=== PATIENT | male | born 1945 | race Caucasian/White ===

== ENCOUNTER → 2018-01-19 | Outpatient (CLI) | payer MEDICARE, OTHER ==
[~2018-01-19] MED LIST: ALBUTEROL NEB; ALBUTEROL0.63 MG/3 INH; AMBIEN10 MG PO; ASPIRIN325 MG PO; BROVANA15 MCG/2 M NEB; BUDESONIDE0.5 MG/2 M NEB; CEFDINIR300 MG PO; CIPRO500 MG PO; FLONASE16 GM; IPRATROPIUM BRO15 ML NEB; METFORMIN HCL500 M1 PO; NORCO 7.5-3251 EACH PO; ONGLYZA5 MG PO; PANTOPRAZOLE SO40 MG PO; PLAVIX75 MG PO; PROAIR HFA INH8.5 GM PO; ZOCOR40 MG PO
--- NOTE | 2018-01-19 09:12 | Diagnostic Imaging Report ---
PROCEDURE: X-RAY CHEST, TWO VIEWS COMPARISON: 05/21/2010. INDICATIONS: PULMONARY EMPHYSEMA FINDINGS: The lungs remain hyperinflated with flattening of the hemidiaphragms and increased AP diameter of the chest. Unchanged bibasilar linear opacities compatible with fibrotic change. No new consolidation or pleural effusion. Stable cardiomediastinal contour with tortuosity and atherosclerotic calcification of the thoracic aorta. Heart size is normal. No overt pulmonary edema. No acute osseous abnormality. CONCLUSION: Stable emphysematous changes and bibasilar scar. Dictated by: Jordan Abrams M.D. on 01/19/2018 at 9:14 Electronically approved by: Jordan Abrams M.D. on 01/19/2018 at 9:14
--- NOTE | 2018-01-20 10:53 | Diagnostic Imaging Report ---
EXAM: DXA BONE DENSITY INDICATIONS: Osteoporosis screening COMPARISON: None. FINDINGS: Proximal left femur bone mineral density (BMD) (g/cm2):0.986 Femur T-score (standard deviation relative to young adult mean BMD): -0.3 Femur Z-score (standard deviation relative to age-matched control group):0.4 Lumbar bone mineral density (BMD) (g/cm2):0.993 Lumbar T-score (standard deviation relative to young adult mean BMD): -0.9 Lumbar Z-score (standard deviation relative to age-matched control group):0.1 CONCLUSION: 1. Bone mineral density in the left femur is classified as normal. Fracture risk is not increased. 2. Bone mineral density in the spine is classified as normal. Fracture risk is not increased. World Health Organization Classification: *The Z-score is provided for informational purposes. The T-score is preferable for clinical decisions. When comparing exams, a change of >4% is considered statistically significant. SUGGESTED RECOMMENDATIONS: Normal \T\ Osteopenia:Consideration should be given to use of calcium supplementation, daily multiple vitamins and adequate exercise, as preventive measures against osteoporosis, if clinically indicated. Osteoporosis \T\ Severe Osteoporosis:In addition to the above, consideration should be given to medical therapy against osteoporosis, if clinically indicated. Ion Adam D.O. Dictated by: Ion Adam D.O. on 01/20/2018 at 10:55 Electronically approved by: Ion Adam D.O. on 01/20/2018 at 10:55
== END ==
LOC: DX 08:17
PROVIDERS: ATTEND Internal Medicine Critical Care Medicine
DX: Z13.820 Encounter for screening for osteoporosis (principal); J43.9 Emphysema, unspecified
CPT/HCPCS: 71046; 77080

== ENCOUNTER 2018-11-11 17:26 | Inpatient (IN) | payer MEDICARE, OTHER ==
[~2018-11-11] VITALS: Ht 162.6 cm; Wt 100.7 kg
--- OUTSIDE RECORDS SUMMARY | 2018-11-11 17:30 | XMS REPORT ---
Author Author [facility] Address Unknown Phone Unavailable Care Team Providers Care Greeter Name Role Phone LEANDRA MARCH Unavailable Unavailable Problems This patient has no known problems. Allergies, Adverse Reactions, Alerts This patient has no known allergies or adverse reactions. Medications This patient has no known medications. Results Test Description Test Time Test Comments Text Results Atomic Results Result Comments CHEST 2 VIEWS [place] [address] Patient Name: MINDY PHILLIP MR #: [id number] : 1945 Age/Sex: 72/M Req #: [id number] Adm Physician: Ordered by: LEANDRA MARCH MD Report #: [id number] Location: DX Room/Bed: Procedure: [id number] DX/CHEST 2 VIEWS Exam Date: 01/19/18 Exam Time: 0830 REPORT STATUS: Signed PROCEDURE: X-RAY CHEST, TWO VIEWS COMPARISON: 05/21/2010. INDICATIONS: PULMONARY EMPHYSEMA FINDINGS: The lungs remain hyperinflated with flattening of the hemidiaphragms and increased AP diameter of the chest. Unchanged bibasilar linear opacities compatible with fibrotic change. No new consolidation or pleural effusion. Stable cardiomediastinal contour with tortuosity and atherosclerotic calcification of the thoracic aorta. Heart size is normal. No overt pulmonary edema. No acute osseous abnormality. CONCLUSION: Stable emphysematous changes and bibasilar scar. Dictated by: Fransisca Horta M.D. on 01/19/2018 at 9:14 Electronically approved by: Fransisca Horta M.D. on 01/19/2018 at 9:14 Dictated By: FRANSISCA HORTA MD 3 Transcribed By: JOE on 01/19/18913 COPY TO: LEANDRA MARCH MD BONE DXA DUAL ENERGY [place] [address] Patient Name: MINDY PHILLIP MR #: [id number] : 1945 Age/Sex: 72/M Req #: [id number] [facility] Physician: Ordered by: LEANDRA MARCH MD Report #: [id number] Location: DX Room/Bed: Procedure: [id number] DX/BONE DXA DUAL ENERGY Exam Date: Exam Time: REPORT STATUS: Signed EXAM: DXA BONE DENSITY INDICATIONS: Osteoporosis screening COMPARISON: None. FINDINGS: Proximal left femur bone mineral density (BMD) (g/cm2): 0.986 Femur T-score (standard deviation relative to young adult mean BMD): -0.3 Femur Z-score (standard deviation relative to age-matched control group): 0.4 Lumbar bone mineral density (BMD) (g/cm2): 0.993 Lumbar T-score (standard deviation relative to young adult mean BMD): -0.9 Lumbar Z- score (standard deviation relative to age-matched control group): 0.1 CONCLUSION: 1. Bone mineral density in the left femur is classified as normal. Fracture risk is not increased. 2. Bone mineral density in the spine is classified as normal. Fracture risk is not increased. World Health Organization Classification: *The Z-score is provided for informational purposes. The T-score is preferable for clinical decisions. When comparing exams, a change of >4% is considered statistically significant. SUGGESTED RECOMMENDATIONS: Normal T Osteopenia: Consideration should be given to use of calcium supplementation, daily multiple vitamins and adequate exercise, as preventive measures against osteoporosis, if clinically indicated. Osteoporosis T Severe Osteoporosis: In addition to the above, consideration should be given to medical therapy against osteoporosis, if clinically indicated. Clarke Adam D.O. Dictated by: Clarke Adam D.O. on 01/20/2018 at 10:55 Electronically approved by: Clarke Adam D.O. on 01/20/2018 at 10:55 Dictated By: CLARKE ADAM DO 1055 Transcribed By: JOE on 01/20/18 1055 COPY TO: LEANDRA MARCH MD
[2018-11-11 18:23] LABS: BASOPHILS # (AUTO) 0.1 (0.0-0.1); EOSINOPHILS # (AUTO) 0.3 (0.0-0.4); EOSINOPHILS % 3.2 % (0.0-6.0); HEMATOCRIT 41.4 % (38.2-49.6); HEMOGLOBIN 13.7 g/dL (14.0-18.0); LYMPHOCYTES # (AUTO) 2.7 (1.0-3.2); LYMPHOCYTES % 25.7 % (18.0-39.1); MEAN CORPUSCULAR HEMOGLOBIN 30.6 pg (28-32); MEAN CORPUSCULAR HGB CONC 33.1 g/dL (31-35); MEAN CORPUSCULAR VOLUME 92.6 fL (81-99); MONOCYTES # (AUTO) 0.9 (0.2-0.8); MONOCYTES % 8.6 % (4.4-11.3); NEUTROPHILS # (AUTO) 6.4 (2.1-6.9); PLATELET COUNT 275 x10e3/uL (140-360); RED BLOOD COUNT 4.47 x10e6/uL (4.3-5.7); RED CELL DISTRIBUTION WIDTH 13.1 % (11.7-14.4)
[2018-11-11 18:36] LABS: INR 0.87; PROTHROMBIN TIME 12.7 seconds (11.9-14.5)
[2018-11-11 18:37] LABS: PARTIAL THROMBOPLASTIN TIME 28.6 seconds (23.8-35.5)
[2018-11-11 18:44] LABS: ALANINE AMINOTRANSFERASE 29 IU/L (0-55); ALBUMIN 3.7 g/dL (3.5-5.0); ALBUMIN/GLOBULIN RATIO 1.3 (0.8-2.0); ALKALINE PHOSPHATASE 63 IU/L (40-150); ANION GAP 14.3 mmol/L (8-16); BLOOD UREA NITROGEN 13 mg/dL (7-26); BUN/CREATININE RATIO 17 (6-25); CALCIUM 9.2 mg/dL (8.4-10.2); CARBON DIOXIDE 27 mmol/L (22-29); CHLORIDE 103 mmol/L (98-107); CREATINE KINASE 129 IU/L (30-200); CREATININE, SERUM 0.76 mg/dL (0.72-1.25); EST GLOMERULAR FILTRATION RATE > 60 ML/MIN (60-); GLUCOSE 141 mg/dL (74-118); MAGNESIUM 3.3 MG/DL (1.3-2.1); POTASSIUM 4.3 mmol/L (3.5-5.1); SODIUM 140 mmol/L (136-145)
[2018-11-11 18:56] LABS: B-TYPE NATRIURETIC PEPTIDE2 13.4 pg/mL (0-100)
--- NOTE | 2018-11-11 18:57 | Diagnostic Imaging Report ---
EXAMINATION: CHEST SINGLE (PORTABLE) INDICATION: ^SOB ^[id number] ^1840 COMPARISON: None FINDINGS: AP view TUBES and LINES: None. LUNGS: Lungs are well inflated. Bilateral interstitial edema. No lobar consolidations. PLEURA: No pleural effusion or pneumothorax. HEART AND MEDIASTINUM: The cardiomediastinal silhouette is unremarkable.. BONES AND SOFT TISSUES: No acute osseous lesion. Soft tissues are unremarkable. UPPER ABDOMEN: No free air under the diaphragm. IMPRESSION: Bilateral interstitial edema. Differential diagnosis includes atypical infection. Signed by: Dr. Maite Santoyo M.D. on 11/11/2018 6:54 PM
[2018-11-11 19:00] LABS: CLARITY,URINE SL CLOUDY (CLEAR); COLOR,URINE YELLOW (YELLOW); KETONES,URINE TRACE (NEGATIVE); LEUKOCYTE ESTERASE ,URINE NEGATIVE (NEGATIVE); NITRITE,URINE NEGATIVE (NEGATIVE); PROTEIN,URINE DIPSTICK 1+ (NEGATIVE)
[2018-11-11 19:01] LABS: BILIRUBIN,URINE NEGATIVE (NEGATIVE); URINE UROBILINOGEN 0.2 mg/dL (0.2 - 1)
[2018-11-11 19:05] LABS: BACTERIA,URINE FEW /HPF; EPITHELIAL CELLS,URINE FEW /LPF; MUCUS,URINE FEW (RARE); WBC,URINE (MAN) 0-5 /HPF (0-5)
[2018-11-11] MEDS ORDERED: ALBUTEROL/IPRATROPIUM 3 ML NEB ONE (19:28)
[2018-11-11] MEDS ORDERED: ALBUTEROL/IPRATROPIUM 3 ML NEB NEB ONE (19:30)
[2018-11-11] MEDS ORDERED: ASPIRIN 81 MG CHEW TAB PO ONE (20:00)
[2018-11-11] MEDS ORDERED: METHYLPREDNISOLONE SOD SUCC 125 MG/2ML VIAL IV ONE (20:00)
[2018-11-11] MEDS ORDERED: DEXTROSE 50% SYRINGE 50 ML IV PRN (20:15)
[2018-11-11] MEDS ORDERED: HYDROCODONE/APAP 7.5MG-325MG 1 EA TAB PO PRN (20:45)
[2018-11-11] MEDS ORDERED: ZOLPIDEM TARTRATE 10 MG TAB PO PRN (20:45)
[2018-11-11] MEDS ORDERED: ALBUTEROL SULFATE HFA 8GM INHALATION AEROSOL INH PRN (20:45)
[2018-11-11] MEDS ORDERED: FUROSEMIDE INJ 10 MG/ML 4 ML VIAL IV ONE (20:45)
[2018-11-11] MEDS: BUDESONIDE 0.5MG/2 ML NEB NEB SCH (21:00)
[2018-11-11] MEDS: IPRATROPIUM BROMIDE 0.06% 42 MCG NASPR NS SCH (21:00)
[2018-11-11 21:13] LABS: ABG HCO3 28 mmol/L (23-28); ABG PCO2 47 mmHg (41-51); ABG PH 7.37 (7.31-7.41); ABG PO2 98 mmHg (80-105)
--- NOTE | 2018-11-11 22:14 | History and Physical ---
CHIEF COMPLAINT: Dyspnea and leg swelling. HISTORY OF PRESENT ILLNESS: The patient is a 73-year-old man with a history of coronary artery disease, requiring a stent 9 years ago. He also has a history of severe COPD. He uses oxygen at home as well as nebulizers. He recently required steroids as an outpatient along with antibiotics and nebulizer treatments. He now comes to the emergency department complaining of worsening dyspnea on exertion. He notes fatigue and dizziness. He also notes some chest pain with exertion. PAST SURGICAL HISTORY: Status post cardiac stent 9 years ago. PAST MEDICAL HISTORY 1. Severe COPD. 2. Bcf-mqyewcx-rhoaffyfk diabetes. 3. Coronary artery disease. SOCIAL HISTORY: The patient quit smoking. He is not an active drinker. ALLERGIES: THE PATIENT IS ALLERGIC TO PENICILLIN. FAMILY HISTORY: Family history is noncontributory. REVIEW OF SYSTEMS: There is no fever or headache. There is no sore throat. There is no neck pain. He did have some chest pain with exertion. He notes worsening dyspnea and some cough. He does not have phlegm production or fevers. There is no nausea or vomiting. There is no abdominal pain. He does have 1-2+ leg edema. PHYSICAL EXAMINATION VITAL SIGNS: The patient is afebrile. The blood pressure is 134/69, saturation is 100% on 3 liters, and the pulse is 83. Respiratory rate is 14. HEENT: No facial swelling or erythema. The nasal mucosa is normal. The oropharynx is normal. LYMPHATIC: No submandibular, cervical, or supraclavicular adenopathy. CARDIOVASCULAR: Regular rate and rhythm with normal S1 and S2. There are no murmurs or rubs. RESPIRATORY: Auscultation of the lungs reveals prolonged expiratory phase bilaterally. There is no wheezing. ABDOMEN: Soft and nontender. There is no rebound or guarding. EXTREMITIES: 2+ leg edema bilaterally. NEUROLOGIC: No focal abnormalities. LABORATORY DATA: BUN to creatinine ratio is 13 to 0.76. The other electrolytes are within normal limits. The troponin I is normal. The magnesium is 3.3. White blood cell count is 10.6 and hemoglobin is 13.7. The platelet count is 275. RADIOGRAPHIC DATA: Chest x-ray shows hyperinflation with some bilateral interstitial edema. IMPRESSION 1. Chronic obstructive pulmonary disease with acute exacerbation. 2. Atypical chest pain. 3. Right heart failure. 4. Diabetes. 5. Moderate obesity. PLAN 1. Patient will be placed in observation with telemetry monitoring. 2. Serial cardiac enzymes and echocardiogram. 3. ABG. 4. Continue bronchodilators. 5. Solu-Medrol. 6. Diuretics. 7. Venous Duplex to rule out DVT. Job#: [id number] BRIJESH
[2018-11-11 22:20] VITALS: BP 142/65
--- NOTE | 2018-11-11 22:20 | NUR ---
PATIENT IS A NEW ADMIT THAT ARRIVED VIA STRETCHER. PATIENT IS ALERT AND ORIENTED. PATIENT HAS BEEN HELPED INTO THE BED. BED IS IN LOWEST POSITION AND CALL HAMMONDS IS WITHIN REACH. WILL CONTINUE TO MONITOR PATIENT.
[2018-11-11 22:25] VITALS: BP 142/65
[2018-11-11] MEDS: INSULIN REGULAR, HUMAN 100 UNIT/1 ML 3ML VIAL SQ SCH (23:57)
[2018-11-12] VITALS (8 sets, daily range): BP systolic 129–157; BP diastolic 56–69
[2018-11-12 02:51] LABS: CREATINE KINASE MB 2.1 ng/mL (0-5.0)
[2018-11-12 05:06] LABS: BASOPHILS % 0.3 % (0.0-1.0); EOSINOPHILS % 0.1 % (0.0-6.0); HEMATOCRIT 41.4 % (38.2-49.6); HEMOGLOBIN 13.8 g/dL (14.0-18.0); LYMPHOCYTES # (AUTO) 0.7 (1.0-3.2); LYMPHOCYTES % 9.8 % (18.0-39.1); MEAN CORPUSCULAR HEMOGLOBIN 30.5 pg (28-32); MEAN CORPUSCULAR HGB CONC 33.3 g/dL (31-35); MEAN CORPUSCULAR VOLUME 91.4 fL (81-99); MONOCYTES # (AUTO) 0.1 (0.2-0.8); MONOCYTES % 1.1 % (4.4-11.3); NEUTROPHILS # (AUTO) 6.5 (2.1-6.9); NEUTROPHILS % 88.4 % (38.7-80.0); PLATELET COUNT 246 x10e3/uL (140-360); RED BLOOD COUNT 4.53 x10e6/uL (4.3-5.7); RED CELL DISTRIBUTION WIDTH 12.5 % (11.7-14.4)
[2018-11-12 05:30] LABS: ALANINE AMINOTRANSFERASE 33 IU/L (0-55); ALBUMIN 3.6 g/dL (3.5-5.0); ALBUMIN/GLOBULIN RATIO 1.2 (0.8-2.0); ALKALINE PHOSPHATASE 64 IU/L (40-150); ANION GAP 14.1 mmol/L (8-16); BLOOD UREA NITROGEN 12 mg/dL (7-26); BUN/CREATININE RATIO 15 (6-25); CALCIUM 9.1 mg/dL (8.4-10.2); CARBON DIOXIDE 27 mmol/L (22-29); CHLORIDE 100 mmol/L (98-107); EST GLOMERULAR FILTRATION RATE > 60 ML/MIN (60-); GLUCOSE 287 mg/dL (74-118); POTASSIUM 4.1 mmol/L (3.5-5.1); SODIUM 137 mmol/L (136-145)
--- NOTE | 2018-11-12 06:20 | Diagnostic Imaging Report ---
EXAMINATION: CHEST SINGLE (PORTABLE) INDICATION: CHF COMPARISON: 11/11/2018 FINDINGS: AP view TUBES and LINES: None. LUNGS: Lungs are well inflated. There is no evidence of pneumonia or pulmonary edema. PLEURA: No pleural effusion or pneumothorax. HEART AND MEDIASTINUM: The cardiomediastinal silhouette is unremarkable. BONES AND SOFT TISSUES: No acute osseous lesion. Soft tissues are unremarkable. UPPER ABDOMEN: No free air under the diaphragm. IMPRESSION: No acute thoracic abnormality. Signed by: DR. Jabier Prado MD on 11/12/2018 6:16 AM
[2018-11-12] MEDS: ALBUTEROL/IPRATROPIUM 3 ML NEB NEB PRN ×3 (07:00→19:58)
[2018-11-12] MEDS: BUDESONIDE 0.5MG/2 ML NEB NEB SCH ×2 (07:00→19:56)
--- NOTE | 2018-11-12 07:02 | NUR ---
REPORT GIVEN TO DAY NURSE. PATIENT IS RESTING COMFORTABLY IN BED. BED IS IN LOWEST POSITION AND CALL HAMMONDS IS WITHIN REACH.
[2018-11-12] MEDS ORDERED: LEVEMIR100 UNIT/1 SQ ×2 (08:24)
[2018-11-12] MEDS ORDERED: SINGULAIR10 MG PO (08:24)
[2018-11-12] MEDS: ASPIRIN 325 MG TAB PO SCH (08:32)
[2018-11-12] MEDS: CLOPIDOGREL BISULFATE 75 MG TAB PO SCH (08:32)
[2018-11-12] MEDS: METHYLPREDNISOLONE SOD SUCC 40 MG/ML VIAL 1ML IV SCH ×2 (08:32→20:55)
[2018-11-12] MEDS: PANTOPRAZOLE SOD 40 MG TABEC PO SCH (08:32)
[2018-11-12] MEDS: SIMVASTATIN 40 MG TAB PO SCH (08:32)
[2018-11-12] MEDS: INSULIN REGULAR, HUMAN 100 UNIT/1 ML 3ML VIAL SQ SCH ×4 (08:33→20:55)
[2018-11-12] MEDS ORDERED: METHYLPREDNISOLONE SOD SUCC 40 MG/ML VIAL 1ML IV SCH (09:00)
[2018-11-12] MEDS: FLUTICASONE PROPIONATE NASAL SPRAY NS SCH ×2 (10:55→17:00)
[2018-11-12] MEDS: IPRATROPIUM BROMIDE 0.06% 42 MCG NASPR NS SCH ×2 (10:55→19:00)
--- NOTE | 2018-11-12 12:25 | Consultation ---
DATE OF CONSULTATION: CARDIOLOGY CONSULTATION CHIEF COMPLAINT: The patient is a 73-year-old with shortness of breath. HISTORY OF PRESENT ILLNESS: The patient is a 73-year-old male with a history of severe chronic obstructive pulmonary disease, on home oxygen and came to the emergency room with worsening dyspnea and exertion. The patient also reported some sharp chest pain. different from the pain he had with his previous coronary stent. The patient also reported some sweating and diaphoresis. PAST MEDICAL HISTORY: Significant for; 1. Severe chronic obstructive pulmonary disease. 2. Diabetes mellitus. 3. Previous coronary stent. 4. Hypertension. SOCIAL HISTORY: The patient was a smoker for long time, but quit. The patient does not drink. ALLERGIES: THE PATIENT IS ALLERGIC TO PENICILLIN. FAMILY HISTORY: There is no known family history of coronary artery disease. PHYSICAL EXAMINATION GENERAL: The patient is a well-developed, well-nourished male, in no obvious distress. VITAL SIGNS: Included a temperature of 98.8, blood pressure 144/74, pulse 62. HEENT: The patient's cranium was normocephalic and atraumatic. Extraocular muscles were intact. Sclerae were anicteric. Pupils were equal, round, and reactive to light. There is no pallor or cyanosis of the oral mucosa. There is no erythema or edema of the throat. NECK: Supple. No jugular venous distention. No carotid bruits. CHEST: Clear to auscultation and percussion, but the bases had markedly decreased breath sounds bilaterally. CARDIAC: The patient had normal S1 and S2 with a short 2/6 systolic murmur. ABDOMEN: The patient has good bowel sounds. No tenderness. No masses. EXTREMITIES: The patient had 1 to 2+ edema bilaterally. NEUROLOGIC: The patient was alert and oriented x3. Cranial nerves II through XII were intact. Motor strength was +5/+5 in all limbs. The patient's EKG demonstrated normal sinus rhythm with some nonspecific ST and T wave changes. IMPRESSION: The patient is a 73-year-old with worsening dyspnea, which I believe is most likely related to an exacerbation of his chronic obstructive pulmonary disease. RECOMMENDATIONS: As follows; 1. The patient will need to be monitored on telemetry. 2. Cardiac enzymes have been ordered to exclude ischemia. 3. An echocardiogram has been ordered to evaluate the left ventricular size and function. Job#: [id number] AMINA
[2018-11-12 12:42] LABS: CREATINE KINASE 135 IU/L (30-200)
[2018-11-12] MEDS: DOXYCYCLINE 100MG/NS 100ML 100 ML IV SCH ×2 (12:42→23:56)
--- NOTE | 2018-11-12 14:22 | NUR ---
Report given to Shannon ZENG of patient's status. Patient transferred via wheelchair to Room 102. No s/s of acute distress noted. Patient's notified of transfer
--- NOTE | 2018-11-12 14:29 | NUR ---
CASE MANAGEMENT INITIAL ASSESSMENT Pre Owned Sales Consultant to bedside to discuss plan of care with patient/family. CM/SW role and care transitions discussed. Anticipated discharge plan discussed along with duration of care. CM/SW discussed patients right to make decisions in care. CM/SW work hours given. Patient lives: WITH , [facility] Admit/Transfer: ED Hospital/ER visits since last admit: NONE POA/Emergency contact: [facility] [phone] Current/Previous Home Health: NONE, BUT WOULD LIKE HOME HEALTH OPTIONS PCP/Follow-up Care: Current/Previous DME: HOME OXYGEN WITH [facility] Medications (referring to index hospitalization or the first time you were in the hospital) a. Were changes made in your medications when you were in the hospital on [date of index hospitalization]? Yes No Not sure Explain: Note: If no or not sure, please skip to question d b. Did you understand the changes? Yes No Explain: c. Were you able to obtain your new medications right away? Yes No n/a SNF only Explain: d. Were you able to take your medications like the doctor wanted you to? Yes No Explain: e. Did the hospital give you an accurate, easy to understand list of medications when you left? Yes No n/a SNF only Explain: Scale of 1-10 how comfortable does patient feel with disease management in outpatient settin Other Services: NONE Employment Status: RETIRED Areas of Concerns: CONCERN HIS COPD IS GETTING WORSE AND WOULD LIKE HOME HEALTH FOR THEIR COPD PROGRAM Referral Needs: HOME HEALTH Education Needs: COPD, EDUCATED ON MARTINEZ LETTER IMM/MARTINEZ given and signed (if applicable): MARTINEZ Goal for discharge: TO RETURN HOME WITH HOME HEALTH TO FOLLOW. CM/SW left business card at the bedside with contact information. Name and number was also written on the patients whiteboard. Patient verbalized understanding of discussion. CM will follow-up with ongoing discharge and transition of care needs.
--- NOTE | 2018-11-12 14:32 | NUR ---
PT ARRIVED ON UNIT VIA WHEELCHAIR WITH ASSIST X2. NC AT 4LPM, SOB OBSERVED. IV TO R AC, PATENT NO REDNESS OR SWELLING TO INSERTION SITE. TELE ON AT THIS TIME. VS WNL.
[2018-11-12] MEDS: MONTELUKAST SODIUM 10 MG TAB PO SCH (16:49)
--- NOTE | 2018-11-12 19:07 | NUR ---
WALKING ROUNDS PERFORMED, RECEIVED PT LAYING SEMI FOWLERS IN BED, AAOX3, RR EVEN AND NON-LABORED, O2 BY NC. NO S/SX OF DISTRESS NOTED. LEFT PT LAYING SEMI FOWLERS IN BED, BED IN LOW LOCKED POSITION, SIDE RAILS UPX2, CALL LIGHT AND PHONE WITHIN REACH.
[2018-11-12] MEDS: ARFORMOTEROL TARTRATE 15 MCG INH SCH (19:54)
[2018-11-12] MEDS: INSULIN GLARGINE 100 UNITS/ML VIAL SQ SCH (20:55)
[2018-11-13] VITALS (7 sets, daily range): BP systolic 105–130; BP diastolic 57–63
[2018-11-13] MEDS: ALBUTEROL/IPRATROPIUM 3 ML NEB NEB PRN ×3 (05:25→23:00)
[2018-11-13] MEDS: ARFORMOTEROL TARTRATE 15 MCG INH SCH ×2 (05:35→18:36)
[2018-11-13] MEDS: BUDESONIDE 0.5MG/2 ML NEB NEB SCH (07:00)
--- NOTE | 2018-11-13 07:16 | NUR ---
Received patient and walking rounds complete. Patient awake in bed at this time, no signs of distress. Bed in lowest position, side rails up x2, wheels locked, call light in reach.
[2018-11-13] MEDS: METHYLPREDNISOLONE SOD SUCC 40 MG/ML VIAL 1ML IV SCH ×2 (08:40→21:50)
[2018-11-13] MEDS: SIMVASTATIN 40 MG TAB PO SCH (08:40)
[2018-11-13] MEDS: ASPIRIN 325 MG TAB PO SCH (08:40)
[2018-11-13] MEDS: CLOPIDOGREL BISULFATE 75 MG TAB PO SCH (08:40)
[2018-11-13] MEDS: INSULIN REGULAR, HUMAN 100 UNIT/1 ML 3ML VIAL SQ SCH ×4 (08:40→22:55)
[2018-11-13] MEDS: INSULIN GLARGINE 100 UNITS/ML VIAL SQ SCH ×2 (08:40→22:56)
[2018-11-13] MEDS: FLUTICASONE PROPIONATE NASAL SPRAY NS SCH ×2 (08:40→16:43)
[2018-11-13] MEDS: PANTOPRAZOLE SOD 40 MG TABEC PO SCH (08:40)
[2018-11-13] MEDS: LISINOPRIL 10 MG TAB PO SCH (08:54)
--- NOTE | 2018-11-13 09:15 | NUR ---
Patient A/O X3, even respirations on 4LNC. Bowel sounds active, skin intact, BLE edema. Tele #[id number] SR. Right AC 20 gauge IV SL. Patient is ambulatory and voids in urinal/toilet. Call light in reach, will continue to monitor.
--- NOTE | 2018-11-13 10:41 | NUR ---
EDUCATED ABOUT IMM, SIGNED, FILED IN CHART, WITH COPY LEFT WITH FAMILY AT BEDSIDE.
[2018-11-13] MEDS: DOXYCYCLINE 100MG/NS 100ML 100 ML IV SCH (12:26)
[2018-11-13] MEDS: MONTELUKAST SODIUM 10 MG TAB PO SCH (16:43)
[2018-11-13] MEDS: IPRATROPIUM BROMIDE 0.06% 42 MCG NASPR NS SCH (19:00)
[2018-11-14] VITALS: BP 116/61
[2018-11-14] MEDS: DOXYCYCLINE 100MG/NS 100ML 100 ML IV SCH (01:11)
[2018-11-14] MEDS: IPRATROPIUM BROMIDE 0.06% 42 MCG NASPR NS SCH (07:00)
[2018-11-14] MEDS: ARFORMOTEROL TARTRATE 15 MCG INH SCH (07:00)
[2018-11-14] MEDS: BUDESONIDE 0.5MG/2 ML NEB NEB SCH (07:00)
[2018-11-14] MEDS: ALBUTEROL/IPRATROPIUM 3 ML NEB NEB PRN (07:00)
--- NOTE | 2018-11-14 07:13 | NUR ---
Received patient and walking rounds complete. Patient awake sitting up on side of bed, no signs of distress. Call light in reach. Will continue to monitor.
[2018-11-14 07:40] VITALS: BP 121/57
[2018-11-14] MEDS: PANTOPRAZOLE SOD 40 MG TABEC PO SCH (08:06)
[2018-11-14] MEDS: LISINOPRIL 10 MG TAB PO SCH (08:06)
[2018-11-14] MEDS: FLUTICASONE PROPIONATE NASAL SPRAY NS SCH (08:06)
[2018-11-14] MEDS: SIMVASTATIN 40 MG TAB PO SCH (08:06)
[2018-11-14] MEDS: CLOPIDOGREL BISULFATE 75 MG TAB PO SCH (08:06)
[2018-11-14] MEDS: METHYLPREDNISOLONE SOD SUCC 40 MG/ML VIAL 1ML IV SCH (08:06)
[2018-11-14] MEDS: ASPIRIN 325 MG TAB PO SCH (08:06)
--- NOTE | 2018-11-14 08:30 | NUR ---
Spoke to Dr. Allen regarding pt's request for home health. He stated that pt did not say anything to him regarding home health and he does not think pt needs it. Pt still driving as well. Pt will follow up in the office and will set up there if needed.
[2018-11-14] MEDS: INSULIN GLARGINE 100 UNITS/ML VIAL SQ SCH (08:38)
[2018-11-14] MEDS: INSULIN REGULAR, HUMAN 100 UNIT/1 ML 3ML VIAL SQ SCH (08:38)
[2018-11-14] MEDS ORDERED: CYMBALTA20 MG PO (08:52)
[2018-11-14] MEDS ORDERED: PREDNISONE5 MG PO (08:53)
[2018-11-14] MEDS ORDERED: DOXYCYCLINE HY100 MG PO (08:53)
[2018-11-14 09:10] VITALS: BP 121/57
--- NOTE | 2018-11-14 09:10 | Discharge Summary ---
DISCHARGE DIAGNOSES: 1. Chronic obstructive pulmonary disease with acute exacerbation. 2. Atypical chest pain. 3. Diabetes mellitus. 4. Moderate obesity. DIAGNOSTIC STUDIES: 1. The patient had a venous duplex study that showed no evidence of deep vein thrombosis. 2. Patient had a chest x-ray that showed no acute disease. DISCHARGE MEDICATIONS: 1. Brovana through a nebulizer twice daily. 2. Budesonide through a nebulizer twice daily. 3. Plavix 75 mg p.o. every day. 4. Fluticasone nasal spray b.i.d. 5. Aspirin 325 mg. 6. Albuterol inhaler p.r.n. 7. Albuterol nebulizer p.r.n. 8. Levemir 12 units q.a.m. and 16 units nightly. 9. Metformin 500 mg p.o. b.i.d. 10. Singulair 10 mg p.o. every day. 11. Protonix 40 mg p.o. every day. 12. Zocor 60 mg p.o. every day. 13. Doxycycline 100 mg p.o. b.i.d. for 10 days. 14. Cymbalta 20 mg p.o. every day. 15. Prednisone 5 mg p.o. every day. CONSULTING PHYSICIANS: Dr. Jordan Allen of cardiology. HISTORY OF PRESENT ILLNESS: Patient is a 73-year-old man with a history of coronary artery disease that required stents 7 years ago. He has a history of severe COPD and uses a noninvasive ventilator at home as well as oxygen at home. He also has nebulizers. He reported increasing dyspnea that was not relieved with steroids and nebulizers at home. He also noted some chest discomfort anteriorly that was unrelated to exercise and was fleeting in nature. HOSPITAL COURSE: The patient was admitted. He was placed on telemetry and had serial cardiac enzymes, which were negative. He had EKGs, which were negative. He was evaluated by cardiology and felt not to have an acute myocardial infarction. The patient started IV Solu-Medrol along with IV antibiotics and bronchodilators for his COPD. He improved with this in about 48 hours and was back to baseline. He felt eager to go home. DISPOSITION: The patient will be discharged home and will follow up with Dr. Allen in 1 week. LEANDRA ALLEN MD Job#: [id number]
--- NOTE | 2018-11-14 09:40 | NUR ---
Removed patients IV, catheter tip intact and pressure dressing applied.
--- NOTE | 2018-11-14 10:33 | NUR ---
Patient discharged from facility. Patient gathered all personal belongings, follow up information, prescriptions. Patient left unit in wheelchair and went home via private auto with spouse. No signs of distress when leaving facility.
== END 2018-11-14 10:33 | disposition home or self-care (01) | DRG 192 ==
LOC: ER 17:26 → ERHOLD 22:11 → IMCU 22:20 → OBSVTOIN 11-12 11:12 → MED/SURG 11-12 14:25
PROVIDERS: ADMIT Internal Medicine Critical Care Medicine; ATTEND Internal Medicine Critical Care Medicine
DX: J44.1 Chronic obstructive pulmonary disease with (acute) exacerbation (principal); R07.89 Other chest pain; E66.9 Obesity, unspecified; Z68.38 Body mass index [BMI] 38.0-38.9, adult; E11.9 Type 2 diabetes mellitus without complications; I25.10 Atherosclerotic heart disease of native coronary artery without angina pectoris; Z95.1 Presence of aortocoronary bypass graft; Z87.891 Personal history of nicotine dependence; I11.0 Hypertensive heart disease with heart failure; I50.810 Right heart failure, unspecified
CPT/HCPCS: 36415; 36600; 71045; 80053; 80061; 81001; 82550; 82553; 82805; 82948; 83605; 83735; 83880; 84484; 85025; 85610; 85730; 87040; 87086; 87400; 93005; 93306; 93970; 94640; 99284; G0378; J1815; J1940; J2920; J2930

== ENCOUNTER 2018-12-11 19:38 | Inpatient (IN) | payer MEDICARE, OTHER ==
[~2018-12-11] VITALS: Ht 153.2 cm; Wt 90.0 kg
[~2018-12-11 19:38] MED LIST changes: +CYMBALTA20 MG PO; +DOXYCYCLINE HY100 MG PO; +LEVEMIR100 UNIT/1 SQ; +PREDNISONE5 MG PO; +SINGULAIR10 MG PO
[2018-12-11] MEDS ORDERED: SODIUM CHLORIDE 0.9% 1000ML 1,000 ML IV STA (19:54)
[2018-12-11] MEDS ORDERED: PANTOPRAZOLE 40 MG 10ML VIAL IV STA (19:54)
--- NOTE | 2018-12-11 20:05 | NUR ---
BOLUS STARTED, URINAL AT BEDSIDE, INST ON NEED FOR UA
[2018-12-11 20:06] LABS: BASOPHILS # (AUTO) 0.1 (0.0-0.1); EOSINOPHILS # (AUTO) 0.1 (0.0-0.4); EOSINOPHILS % 0.7 % (0.0-6.0); HEMATOCRIT 37.1 % (38.2-49.6); HEMOGLOBIN 11.9 g/dL (14.0-18.0); LYMPHOCYTES # (AUTO) 1.4 (1.0-3.2); LYMPHOCYTES % 16.6 % (18.0-39.1); MEAN CORPUSCULAR HEMOGLOBIN 30.6 pg (28-32); MEAN CORPUSCULAR HGB CONC 32.1 g/dL (31-35); MEAN CORPUSCULAR VOLUME 95.4 fL (81-99); MONOCYTES # (AUTO) 0.6 (0.2-0.8); MONOCYTES % 7.5 % (4.4-11.3); NEUTROPHILS # (AUTO) 6.1 (2.1-6.9); NEUTROPHILS % 73.6 % (38.7-80.0); PLATELET COUNT 254 x10e3/uL (140-360); RED BLOOD COUNT 3.89 x10e6/uL (4.3-5.7); RED CELL DISTRIBUTION WIDTH 13.4 % (11.7-14.4)
[2018-12-11 20:18] LABS: ALANINE AMINOTRANSFERASE 21 IU/L (0-55); ALBUMIN 3.3 g/dL (3.5-5.0); ALBUMIN/GLOBULIN RATIO 1.2 (0.8-2.0); ALKALINE PHOSPHATASE 53 IU/L (40-150); ANION GAP 13.5 mmol/L (8-16); BLOOD UREA NITROGEN 16 mg/dL (7-26); BUN/CREATININE RATIO 20 (6-25); CARBON DIOXIDE 24 mmol/L (22-29); CHLORIDE 108 mmol/L (98-107); CREATINE KINASE 100 IU/L (30-200); CREATININE, SERUM 0.82 mg/dL (0.72-1.25); EST GLOMERULAR FILTRATION RATE > 60 ML/MIN (60-); GLUCOSE 241 mg/dL (74-118); LIPASE 13 U/L (8-78); POTASSIUM 4.5 mmol/L (3.5-5.1); SODIUM 141 mmol/L (136-145)
[2018-12-12] VITALS (8 sets, daily range): BP systolic 102–123; BP diastolic 51–58
[2018-12-12 01:03] LABS: HEMATOCRIT 31.4 % (38.2-49.6)
[2018-12-12] MEDS ORDERED: MONTELUKAST SOD10 MG PO (01:06)
[2018-12-12] MEDS ORDERED: ZOLPIDEM TARTRA10 MG PO (01:06)
[2018-12-12] MEDS ORDERED: MELOXICAM7.5 MG PO (01:06)
[2018-12-12] MEDS ORDERED: CLOPIDOGREL75 MG PO (01:06)
[2018-12-12] MEDS ORDERED: DEXTROSE 50% SYRINGE 50 ML IV PRN ×2 (01:15→08:30)
--- NOTE | 2018-12-12 01:22 | NUR ---
Pt arrived to the unit fro ER in a stretcher.aaox4,ambulates with walker.has shortness of breath.no resp.distress.no pain voiced.but has abd.discomfort.iv r forearm #20 saline lock.on npo.consults Anshul is aware of that.oriented to the unit.bed locked and in lowest position.phone and call light within reach.instructed to call for assistance as needed.pt states that bright blood noted in the stool.
[2018-12-12 02:21] LABS: BILIRUBIN,URINE NEGATIVE (NEGATIVE); CLARITY,URINE CLEAR (CLEAR); COLOR,URINE YELLOW (YELLOW); KETONES,URINE 1+ (NEGATIVE); LEUKOCYTE ESTERASE ,URINE NEGATIVE (NEGATIVE); NITRITE,URINE NEGATIVE (NEGATIVE); PROTEIN,URINE DIPSTICK TRACE (NEGATIVE); URINE UROBILINOGEN 0.2 mg/dL (0.2 - 1)
[2018-12-12 02:32] LABS: EPITHELIAL CELLS,URINE FEW /LPF; MUCUS,URINE MODERATE (RARE); RBC,URINE 0-5 /HPF (0-5); WBC,URINE (MAN) 0-5 /HPF (0-5)
[2018-12-12] MEDS: ALBUTEROL/IPRATROPIUM 3 ML NEB NEB PRN ×5 (02:45→19:40)
--- NOTE | 2018-12-12 04:25 | NUR ---
will come and see the pt in the morning.
[2018-12-12 06:02] LABS: HEMATOCRIT 30.1 % (38.2-49.6); HEMOGLOBIN 9.6 g/dL (14.0-18.0)
--- NOTE | 2018-12-12 06:58 | NUR ---
REPORT GIVEN TO THE ONCOMING RN.WALKING ROUNDS DONE.STABLE CONDITION.
--- NOTE | 2018-12-12 07:23 | NUR ---
Rcvd patient in report this am. Patient is asleep in bed at this time. No s/s of distress noted
[2018-12-12] MEDS ORDERED: INSULIN REGULAR, HUMAN 100 UNIT/1 ML 3ML VIAL SQ SCH (07:30)
[2018-12-12] MEDS ORDERED: PANTOPRAZOLE 40 MG 10ML VIAL ONE (08:11)
[2018-12-12] MEDS ORDERED: ALBUTEROL SULFATE HFA 8GM INHALATION AEROSOL INH PRN (08:15)
[2018-12-12] MEDS: PANTOPRAZOLE 40 MG 10ML VIAL IV SCH (08:18)
[2018-12-12] MEDS ORDERED: NON-FORMULARY MEDICATION (Zolpidem Tartrate 10 MG) PO PRN (08:30)
[2018-12-12] MEDS ORDERED: ALBUTEROL SULF 0.083% NEB SOLN 3 ML NEB INH PRN (08:30)
[2018-12-12] MEDS ORDERED: FLUTICASONE PROPIONATE 16 GM SCH (09:00)
[2018-12-12] MEDS ORDERED: INSULIN DETEMIR 4 UNIT SQ SCH (09:00)
[2018-12-12] MEDS: DULOXETINE HCL 20 MG DELAYED RELEASE PO SCH (09:29)
[2018-12-12] MEDS: MONTELUKAST SODIUM 10 MG TAB PO SCH (09:29)
[2018-12-12] MEDS: INSULIN GLARGINE 100 UNITS/ML VIAL SQ SCH ×2 (09:30→21:30)
--- NOTE | 2018-12-12 10:00 | NUR ---
Patient is AAOx3. Patient lung rivas diminished to auscultation. Bowel sounds present x4. No edema noted. Patient ambulates on his own. O2 at 4l NC. Patient wears oxygen at home. No bleeding noted at this time. Informed patient that when he has a BM to let the staff know. Patient is NPO at this time.
--- NOTE | 2018-12-12 10:15 | History and Physical ---
HISTORY OF PRESENT ILLNESS: The patient is a 73-year-old man. He has a history of coronary artery disease that required a stent nine years ago. He has a history of severe COPD. He uses oxygen at home as well as nebulizers. He also requires intermittent steroids. He has required hospitalizations several times in the last 12 months. The patient has a history of diverticulosis. He had his last colonoscopy about eight years ago. He had five separate episodes of bright red blood per rectum yesterday. He subsequently came to the emergency department. Since being in the emergency department, he has not had any further rectal bleeding. He denies any abdominal pain. He does not complain of any nausea or vomiting. He is not complaining of any fevers. PAST SURGICAL HISTORY: Status post cardiac stent nine years. PAST MEDICAL HISTORY: 1. Severe COPD. 2. Coronary artery disease. 3. Diabetes. SOCIAL HISTORY: The patient previously quit smoking. He is not an active drinker. ALLERGIES: THE PATIENT IS ALLERGIC TO PENICILLIN. FAMILY HISTORY: The family history is noncontributory. REVIEW OF SYSTEMS: The patient is afebrile. He has no headache. He does not complain of any chest pain. He does have some congestion and cough. He has no abdominal pain. He has no nausea or vomiting. He did have rectal bleeding as noted above. PHYSICAL EXAMINATION: VITAL SIGNS: The patient is afebrile, the blood pressure is 118/58, pulse is 79, respiratory rate is 18, saturation is 97% on 2 L. HEENT: Shows no facial swelling or erythema. The nasal mucosa is normal. The oropharynx is normal. LYMPHATIC: Shows no submandibular, cervical, or supraclavicular adenopathy. NECK: Shows no JVD or thyromegaly. There is no nuchal rigidity. CARDIAC: Reveals a regular rate and rhythm with a normal S1 and S2. There are no murmurs or rubs. LUNGS: Auscultation of lungs reveals rhonchorous breath sounds bilaterally. There is no wheezing. ABDOMEN: Soft and nontender. There is no rebound or guarding. EXTREMITIES: Examination of the extremities shows no leg edema or calf tenderness. There is no cyanosis or clubbing. SKIN: Shows no rashes. NEUROLOGICAL: Shows no focal abnormalities. LABORATORY DATA: The hemoglobin is decreased from 11.9 on admission to 9.6, the platelet count is 254. The BUN to creatinine ratio is normal. The other electrolytes are within normal limits. Blood sugar is 142. IMPRESSION: 1. Acute blood loss secondary to lower gastrointestinal bleeding. 2. Chronic obstructive pulmonary disease. 3. Diabetes. 4. Hypertension. 5. Coronary artery disease. PLAN: 1. Continue to monitor blood counts and the patient for any evidence of active bleeding. 2. GI consult. 3. Continue bronchodilators as at home. 4. Continue insulin as at home. Darrian Allen MD Gelacio/MODL /[id number]
[2018-12-12] MEDS: FLUTICASONE PROPIONATE NASAL SPRAY NS SCH ×2 (10:30→17:03)
[2018-12-12] MEDS: HYDROCORTISONE SOD SUCCINATE 100 MG VIAL IV SCH ×2 (11:48→21:10)
[2018-12-12] MEDS: INSULIN REGULAR, HUMAN 100 UNIT/1 ML 3ML VIAL SQ SCH ×3 (12:22→21:00)
--- NOTE | 2018-12-12 13:00 | NUR ---
Call placed to Dr. washington to inform that patient was NPO and no procedure was to be scheduled, can we feed the patient. New order for clear liquid diet and MD to see patient later this evening
--- NOTE | 2018-12-12 13:50 | NUR ---
Visit made by the Spiritual Care Department Pastoral Visitor, Colette Macedo. PV provided pastoral presence, prayer, hospitality, and supportive listening. Pastoral Visitor informed pt/family of the scope of [employer] and availability. BELKIS GUILLEN Double Needle Operator Lock[employer]ch Spiritual Care Department O: [phone] Pager: [phone] ([phone] number calling from)
[2018-12-12 18:48] LABS: HEMATOCRIT 31.6 % (38.2-49.6); HEMOGLOBIN 10.2 g/dL (14.0-18.0)
--- NOTE | 2018-12-12 19:00 | NUR ---
REPORT TAKEN FROM AM RN.WALKING ROUNDS DONE.STABLE CONDITION.NO PAIN VOICED.BUT HAS ABD DISCOMFORT.GETTING O2 4L NC .TOLERATE THE DIET.
[2018-12-12] MEDS ORDERED: INSULIN DETEMIR 8 UNIT SQ SCH (21:00)
[2018-12-12] MEDS: SIMVASTATIN 40 MG TAB PO SCH (21:30)
[2018-12-12] MEDS: ZOLPIDEM TARTRATE 10 MG TAB PO PRN (22:00)
--- NOTE | 2018-12-12 22:00 | NUR ---
ASSESSMENT DONE.NO BM.NO PAIN.BUT HAS ABD.DISCOMFORT. PER PATIENT REQUEST AMBIEN 5 MG PO GIVEN.WASTED REMAINING 5 MG WITH ANOTHER RN RAJEEV.BED LOCKED AND IN LOWEST POSITION.PHONE AND CALL LIGHT WITHIN REACH.INSTRUCTED TO CALL FOR ASSISTANCE NEEDED.
[2018-12-13] VITALS (8 sets, daily range): BP systolic 105–134; BP diastolic 50–62
--- NOTE | 2018-12-13 00:10 | NUR ---
IS IN THE UNIT .RECEIVED NEW ORDERS .PLANNING TO DO COLONOSCOPY .
[2018-12-13] MEDS ORDERED: BISACODYL 5 MG TAB EC PO ONE ×3 (00:30→02:00)
[2018-12-13] MEDS ORDERED: BISACODYL 5 MG TAB EC PO SCH (01:00)
[2018-12-13] MEDS ORDERED: CITRATE OF MAGNESIA 300ML BOTTLE PO ONE ×2 (05:00→06:00)
[2018-12-13] MEDS: ALBUTEROL/IPRATROPIUM 3 ML NEB NEB PRN ×5 (05:20→23:30)
[2018-12-13 05:44] LABS: HEMATOCRIT 33.4 % (38.2-49.6); HEMOGLOBIN 10.7 g/dL (14.0-18.0)
--- NOTE | 2018-12-13 06:19 | NUR ---
ORDERED LAXATIVE ADMINISTERED.BUT NO BOWEL MOVEMENT OCCURED.
--- NOTE | 2018-12-13 07:10 | NUR ---
REPORT GIVEN TO THE ONCOMING RN.WALKING ROUNDS DONE.STABLE CONDITION.PT IS ON NPO.HAD BOWEL MOVEMENT.NOT CLEARED.
[2018-12-13] MEDS: INSULIN REGULAR, HUMAN 100 UNIT/1 ML 3ML VIAL SQ SCH ×4 (07:30→21:21)
[2018-12-13] MEDS: DULOXETINE HCL 20 MG DELAYED RELEASE PO SCH (08:23)
[2018-12-13] MEDS: FLUTICASONE PROPIONATE NASAL SPRAY NS SCH ×2 (08:23→17:32)
[2018-12-13] MEDS: MONTELUKAST SODIUM 10 MG TAB PO SCH (08:23)
[2018-12-13] MEDS: HYDROCORTISONE SOD SUCCINATE 100 MG VIAL IV SCH ×2 (08:31→21:20)
[2018-12-13] MEDS: INSULIN GLARGINE 100 UNITS/ML VIAL SQ SCH ×2 (08:31→21:21)
[2018-12-13] MEDS: PANTOPRAZOLE 40 MG 10ML VIAL IV SCH (08:38)
[2018-12-13] MEDS ORDERED: ONDANSETRON HCL INJ 2MG/ML 2ML 2 MG/ML VIAL IV PRN (10:00)
[2018-12-13] MEDS: SODIUM CHLORIDE 0.9% 1000ML 1,000 ML IV SCH ×2 (11:45→23:04)
--- NOTE | 2018-12-13 13:51 | NUR ---
EDUCATED ABOUT IMM, SIGNED, FILED IN CHART, WITH COPY LEFT WITH FAMILY AT BEDSIDE.
--- NOTE | 2018-12-13 14:35 | NUR ---
Patient picked up for procedure at this time
--- NOTE | 2018-12-13 15:24 | Progress Note ---
DATE: 12/13/2018 Pulmonary Critical Care Progress Note SUBJECTIVE: The patient has no further rectal bleeding. He is not complaining of any nausea or vomiting. He has no abdominal pain. He denies any wheezing. He has no cough. PHYSICAL EXAMINATION: VITAL SIGNS: The patient is afebrile. The vital signs are stable. HEENT: Shows no facial swelling or erythema. The nasal mucosa is normal. The oropharynx is normal. LYMPHATIC: Shows no submandibular, cervical, or supraclavicular adenopathy. CARDIAC: Reveals a regular rate and rhythm with a normal S1 and S2. There are no murmurs or rubs heard. LUNGS: Auscultation of the lungs reveals rhonchorous breath sounds bilaterally. There is no wheezing. ABDOMEN: Soft and nontender. There is no rebound or guarding. EXTREMITIES: Show no leg edema or calf tenderness. There is no cyanosis or clubbing. IMPRESSION: 1. Acute blood loss secondary to lower gastrointestinal bleed. 2. Chronic obstructive pulmonary disease. 3. Diabetes. 4. Hypertension. 5. Coronary artery disease. PLAN: 1. Continue to monitor blood counts. 2. Await colonoscopy and endoscopy. 3. Continue bronchodilators. 4. Monitor blood sugars. MD MAMI Chavez/ANTONI /[id number]
--- NOTE | 2018-12-13 17:03 | NUR ---
Patient had procedure today and found diverticulosis, polyps to rectum and cecum, internal hemorrhoids with no bleeding. Report received
--- NOTE | 2018-12-13 17:20 | NUR ---
Received patient from [facility], alert and responsive, no resp distress, VSS, denies any pains, in bed, bed alarms in place, call light within reach, will monitor.
[2018-12-13] MEDS ORDERED: PROPOFOL IV EMULSION 10 MG/ML 50 ML VIAL ONE (17:28)
[2018-12-13] MEDS ORDERED: GLUCAGON FOR INJ 1 MG VIAL ONE (17:28)
--- NOTE | 2018-12-13 18:10 | Operative Report ---
DATE OF PROCEDURE: 12/13/2018 SURGEON: Rc Landers MD PROCEDURES: Colonoscopy and polypectomy. INDICATIONS FOR COLONOSCOPY: Rectal bleeding. MEDICATIONS: The patient was done under MAC, please see anesthesiologist's note. PROCEDURE IN DETAIL: With the patient in left lateral decubitus position, flexible fiberoptic Olympus colonoscope was inserted into the rectum with ease and advanced all the way to the cecum. Diverticulosis was noted throughout. There was no active bleeding noted. An approximately 2 cm sessile polypoid lesion was noted in the cecum that was removed per snare electrocautery and polypectomy site was hemoclipped x2. Mucosa overlying the ascending, transverse, and descending other than for the diverticular disease appeared to be within normal limits. An approximately 8 mm sessile polyp was snared from the sigmoid colon and a similar size polyp was also snared from the rectum. The scope was then retroflexed into the distal rectum and moderate-sized internal hemorrhoids were noted, none of which was actively bleeding. The scope was then straightened out, it was subsequently withdrawn. The patient tolerated the procedure well. IMPRESSION: 1. Cecal mass, sessile, approximately 2 cm in size, removed per snare electrocautery and polypectomy site was hemoclipped x2. 2. Pandiverticulosis. 3. Sigmoid colon polyp snared. 4. Rectal polyp snared. 5. Internal hemorrhoids, none actively bleeding. PLAN: Follow up histology. Follow H and H. Initiate full liquid diet. The patient might benefit from a followup colonoscopy in one year to re-evaluate the polypectomy site in the cecum. Rc Landers MD [facility] [place] [place] /[id number] cc: Darrian Allen MD
[2018-12-13] MEDS ORDERED: MIDAZOLAM HCL 2 MG/2 ML VIAL ONE (18:11)
--- NOTE | 2018-12-13 18:58 | NUR ---
WALKING ROUNDS PERFORMED, RECEIVED PT LAYING SEMI FOWLERS IN BED, AAOX3, RR EVEN AND NON-LABORED, ON RA. NO S/SX OF DISTRESS NOTED. LEFT PT LAYING SEMI FOWLERS IN BED, BED IN LOW LOCKED POSITION, SIDE RAILS UPX2, CALL LIGHT AND PHONE WITHIN REACH.
[2018-12-13] MEDS: ZOLPIDEM TARTRATE 10 MG TAB PO PRN (21:17)
[2018-12-13] MEDS: SIMVASTATIN 40 MG TAB PO SCH (21:20)
[2018-12-14] VITALS (8 sets, daily range): BP systolic 90–114; BP diastolic 47–59
[2018-12-14 05:56] LABS: BASOPHILS % 0.5 % (0.0-1.0); EOSINOPHILS # (AUTO) 0.2 (0.0-0.4); EOSINOPHILS % 1.8 % (0.0-6.0); HEMATOCRIT 28.6 % (38.2-49.6); HEMOGLOBIN 9.1 g/dL (14.0-18.0); LYMPHOCYTES # (AUTO) 1.2 (1.0-3.2); LYMPHOCYTES % 14.4 % (18.0-39.1); MEAN CORPUSCULAR HEMOGLOBIN 30.3 pg (28-32); MEAN CORPUSCULAR HGB CONC 31.8 g/dL (31-35); MEAN CORPUSCULAR VOLUME 95.3 fL (81-99); MONOCYTES # (AUTO) 0.3 (0.2-0.8); MONOCYTES % 4.1 % (4.4-11.3); NEUTROPHILS # (AUTO) 6.6 (2.1-6.9); NEUTROPHILS % 78.7 % (38.7-80.0); PLATELET COUNT 217 x10e3/uL (140-360)
[2018-12-14] MEDS: FLUTICASONE PROPIONATE NASAL SPRAY NS SCH ×2 (08:15→17:50)
[2018-12-14] MEDS: INSULIN GLARGINE 100 UNITS/ML VIAL SQ SCH ×2 (08:15→21:59)
[2018-12-14] MEDS: MONTELUKAST SODIUM 10 MG TAB PO SCH (08:15)
[2018-12-14] MEDS: HYDROCORTISONE SOD SUCCINATE 100 MG VIAL IV SCH ×2 (08:15→21:59)
[2018-12-14] MEDS: INSULIN REGULAR, HUMAN 100 UNIT/1 ML 3ML VIAL SQ SCH ×4 (08:15→21:59)
[2018-12-14] MEDS: DULOXETINE HCL 20 MG DELAYED RELEASE PO SCH (08:15)
[2018-12-14] MEDS: PANTOPRAZOLE 40 MG 10ML VIAL IV SCH (08:15)
--- NOTE | 2018-12-14 09:35 | Progress Note ---
DATE: 12/14/2018 SUBJECTIVE: The patient had a colonoscopy yesterday. He had a sessile polyp removed from the cecal area. He also has some diverticulitis and some hemorrhoids that were not actively bleeding. PHYSICAL EXAMINATION: VITAL SIGNS: The patient is afebrile. The blood pressure is 100/50. Saturation is 98% on 4 L. HEENT: Shows no facial swelling or erythema. Nasal mucosa is normal. The oropharynx is normal. LYMPHATIC: Shows no submandibular, cervical, or supraclavicular adenopathy. NECK: Shows no JVD or thyromegaly. There is no nuchal rigidity. CARDIAC: Reveals a regular rate and rhythm with a normal S1 and S2. There are no murmurs or rubs heard. LUNGS: Auscultation of lungs reveals clear breath sounds bilaterally. There is no wheezing. ABDOMEN: Soft and nontender. There is no rebound or guarding. EXTREMITIES: Show no leg edema or calf tenderness. There is no cyanosis or clubbing. SKIN: Shows no rashes. IMPRESSION: 1. Acute blood loss secondary to lower gastrointestinal bleed. 2. Diverticulosis. 3. Colonic polyp. 4. Severe chronic obstructive pulmonary disease with oxygen and noninvasive ventilator at home. PLAN: 1. Observation for one more day. 2. If there is no recurrent bleeding and the patient is not having any respiratory problems, we will discharge home tomorrow. 3. Continue oxygen. 4. Continue bronchodilators. Darrian Allen MD LM/ANTONI /[id number]
--- NOTE | 2018-12-14 10:02 | NUR ---
Patient alert and responsive, no resp distress, VSS and no c/o pains, seen by attending this morning and patient continues on steroids due to COPD and will possibly discharge tomorrow.
--- NOTE | 2018-12-14 12:05 | NUR ---
Patient alert and responsive, no resp distress, no s/sx of hypo/hyperglycemia, call light within reach, no BM as of yet, will monitor.
[2018-12-14 12:26] LABS: HYPOCHROMASIA SLIGHT; LYMPHOCYTES % (MANUAL) 12 % (19-48); MONOCYTES % (MANUAL) 4 % (3.4-9.0); NEUTROPHILS % (MANUAL) 82 % (40-74); PLATELET ESTIMATE ADEQUATE; PLATELET MORPHOLOGY COMMENT NORMAL; RBC MORPHOLOGY COMMENT NORMAL; TEAR DROP CELLS R
--- NOTE | 2018-12-14 17:52 | NUR ---
Patient alert and responsive, had a small semi formed stool, no hematochezia noted, diet upgraded to GI soft.VSS, no c/o pains, no N/V, will monitor
[2018-12-14] MEDS: ALBUTEROL/IPRATROPIUM 3 ML NEB NEB PRN (20:45)
[2018-12-14] MEDS: SIMVASTATIN 40 MG TAB PO SCH (21:59)
[2018-12-15] VITALS: BP 105/57
[2018-12-15 04:00] VITALS: BP 127/60
[2018-12-15 05:44] LABS: BASOPHILS % 0.4 % (0.0-1.0); HEMATOCRIT 26.8 % (38.2-49.6); HEMOGLOBIN 8.9 g/dL (14.0-18.0); LYMPHOCYTES # (AUTO) 1.5 (1.0-3.2); LYMPHOCYTES % 21.1 % (18.0-39.1); MEAN CORPUSCULAR HEMOGLOBIN 30.7 pg (28-32); MEAN CORPUSCULAR HGB CONC 33.2 g/dL (31-35); MEAN CORPUSCULAR VOLUME 92.4 fL (81-99); MONOCYTES # (AUTO) 0.4 (0.2-0.8); MONOCYTES % 5.4 % (4.4-11.3); NEUTROPHILS # (AUTO) 5.3 (2.1-6.9); NEUTROPHILS % 72.7 % (38.7-80.0); PLATELET COUNT 200 x10e3/uL (140-360); RED CELL DISTRIBUTION WIDTH 12.9 % (11.7-14.4)
--- NOTE | 2018-12-15 07:30 | NUR ---
received patient in report this morning. Patient resting in bed. No S&S of distress or discomfort noted. Call light in reach.
[2018-12-15] MEDS: FLUTICASONE PROPIONATE NASAL SPRAY NS SCH (08:26)
[2018-12-15] MEDS: MONTELUKAST SODIUM 10 MG TAB PO SCH (08:26)
[2018-12-15] MEDS: PANTOPRAZOLE 40 MG 10ML VIAL IV SCH (08:26)
[2018-12-15] MEDS: DULOXETINE HCL 20 MG DELAYED RELEASE PO SCH (08:26)
--- NOTE | 2018-12-15 08:35 | NUR ---
IV removed from R wrist. catheter tip in place. Pressure dressing applied.
[2018-12-15] MEDS: INSULIN REGULAR, HUMAN 100 UNIT/1 ML 3ML VIAL SQ SCH (08:41)
[2018-12-15 08:55] VITALS: BP 124/60
[2018-12-15] MEDS: INSULIN GLARGINE 100 UNITS/ML VIAL SQ SCH (09:29)
[2018-12-15 09:38] VITALS: BP 124/60
--- NOTE | 2018-12-15 11:05 | NUR ---
Patient discharged home at this time. Accompanied by staff via wheelchair with oxygen. Reviewed discharge paperwork, no new medications needed, follow-up appointments discussed.
--- NOTE | 2018-12-16 05:25 | Discharge Summary ---
DISCHARGE DIAGNOSES: 1. Acute blood loss secondary to lower gastrointestinal bleed. 2. Severe chronic obstructive pulmonary disease. 3. Diabetes. 4. Hypercholesterolemia. DISCHARGE MEDICATIONS: 1. Albuterol HFA inhaler as needed for rescue. 2. Nebulizer treatments q.4 hours p.r.n. 3. Brovana 15 mcg through the nebulizer twice daily. 4. Budesonide 0.5 mg through the nebulizer twice daily. 5. Aspirin 325 mg a day. 6. Plavix 75 mg a day. 7. Cymbalta 20 mg a day. 8. Flonase one spray twice daily. 9. Levemir 16 units q.h.s. and 12 units q.a.m. 10. Metformin 500 mg p.o. b.i.d. 11. Montelukast 10 mg p.o. daily. 12. Protonix 40 mg p.o. daily. 13. Prednisone 5 mg p.o. daily. 14. Ambien 10 mg p.o. q.h.s. p.r.n. 15. Zocor 40 mg p.o. daily. CONSULTING PHYSICIAN: Rc Landers MD PROCEDURE: Colonoscopy, which shows a sessile polyp in the cecum as well as some diverticula and nonbleeding hemorrhoids. HISTORY OF PRESENT ILLNESS: The patient is a 73-year-old man. He has a history of coronary artery disease that required a stent 9 years ago. He has a history of severe COPD. He uses oxygen at home as well as noninvasive ventilator. He has a history of diverticulosis. He came in complaining of low rectal bleeding. It was bright red blood. HOSPITAL COURSE: The patient was admitted. He was started on IV fluids. His blood counts remained stable and his bleeding stopped. He was subsequently seen by Gastroenterology. He had a colonoscopy that showed diverticulosis as well as hemorrhoids. He was continued on oxygen in the hospital. He was continued on budesonide and Brovana. He received some hydrocortisone for stress dose steroids. He did not have any worsening of his baseline respiratory status. The patient's blood sugars were monitored. He received his regular insulin along with a sliding scale as needed. At the time of discharge, he felt much better and was eager to go home. DISPOSITION: The patient will be discharged home and will follow up with Dr. Allen in 1-2 weeks. MD MAMI Chavez/ANTONI /[id number]
== END 2018-12-15 10:55 | disposition home or self-care (01) | DRG 378 ==
LOC: ER 19:38 → ERHOLD 23:27 → UNDOADMOB 23:27 → ERHOLD 23:29 → OBSVTOIN 12-12 00:56 → MED/SURG 12-12 01:29
PROVIDERS: ADMIT Internal Medicine Critical Care Medicine; ATTEND Internal Medicine Critical Care Medicine
PROC: 0DBH8ZX Excision of Cecum, Via Natural or Artificial Opening Endoscopic, Diagnostic (ICD-10-PCS; principal; 2018-12-12)
PROC: 0DBN8ZX Excision of Sigmoid Colon, Via Natural or Artificial Opening Endoscopic, Diagnostic (ICD-10-PCS; 2018-12-12)
DX: K92.2 Gastrointestinal hemorrhage, unspecified (principal); D62 Acute posthemorrhagic anemia; J44.1 Chronic obstructive pulmonary disease with (acute) exacerbation; J44.9 Chronic obstructive pulmonary disease, unspecified; E11.9 Type 2 diabetes mellitus without complications; I10 Essential (primary) hypertension; I25.10 Atherosclerotic heart disease of native coronary artery without angina pectoris; E78.5 Hyperlipidemia, unspecified; D12.0 Benign neoplasm of cecum; D12.5 Benign neoplasm of sigmoid colon; K64.8 Other hemorrhoids; K57.30 Diverticulosis of large intestine without perforation or abscess without bleeding
CPT/HCPCS: 36415; 45385; 80053; 81001; 82550; 82553; 82948; 83690; 83880; 84484; 85014; 85018; 85025; 88305; 93005; 94640; 99284; G0378; J1610; J1720; J1815; J2250; J2405; J7030

== ENCOUNTER 2020-11-10 15:32 | Inpatient (IN) | payer MEDICARE, OTHER ==
[~2020-11-10] VITALS: Ht 160 cm; Wt 87.5 kg
[~2020-11-10 15:32] MED LIST changes: +CLOPIDOGREL75 MG PO; +MELOXICAM7.5 MG PO; +MONTELUKAST SOD10 MG PO; +ZOLPIDEM TARTRA10 MG PO
[2020-11-10 16:01] LABS: BASOPHILS % 0.4 % (0.0-1.0); HEMATOCRIT 42.5 % (38.2-49.6); HEMOGLOBIN 13.7 g/dL (14.0-18.0); LYMPHOCYTES # (AUTO) 1.4 (1.0-3.2); LYMPHOCYTES % 25.6 % (18.0-39.1); MEAN CORPUSCULAR HEMOGLOBIN 29.3 pg (28-32); MEAN CORPUSCULAR HGB CONC 32.2 g/dL (31-35); MONOCYTES # (AUTO) 0.4 (0.2-0.8); MONOCYTES % 7.6 % (4.4-11.3); NEUTROPHILS # (AUTO) 3.5 (2.1-6.9); PLATELET COUNT 190 x10e3/uL (140-360); RED BLOOD COUNT 4.67 x10e6/uL (4.3-5.7); RED CELL DISTRIBUTION WIDTH 12.9 % (11.7-14.4)
[2020-11-10] MEDS ORDERED: ACETAMINOPHEN 325 MG TAB PO ONE ×2 (17:00→17:15)
[2020-11-10] MEDS ORDERED: ACETAMINOPHEN 325 MG TAB ONE (17:12)
[2020-11-10 17:25] LABS: ALANINE AMINOTRANSFERASE 33 IU/L (0-55); ALBUMIN 3.1 g/dL (3.5-5.0); ALBUMIN/GLOBULIN RATIO 0.9 (0.8-2.0); ALKALINE PHOSPHATASE 60 IU/L (40-150); BLOOD UREA NITROGEN 12 mg/dL (7-26); BUN/CREATININE RATIO 15 (6-25); CALCIUM 8.2 mg/dL (8.4-10.2); CARBON DIOXIDE 28 mmol/L (22-29); CHLORIDE 98 mmol/L (98-107); CREATINE KINASE 442 IU/L (30-200); EST GLOMERULAR FILTRATION RATE > 60 ML/MIN (60-); GLUCOSE 170 mg/dL (74-118); SODIUM 135 mmol/L (136-145)
[2020-11-10] MEDS ORDERED: ZOLPIDEM TARTRATE 10 MG TAB PO PRN (19:00)
[2020-11-10] MEDS ORDERED: ALBUTEROL SULFATE HFA 8GM INHALATION AEROSOL INH PRN (19:00)
[2020-11-10] MEDS ORDERED: METHYLPREDNISOLONE SOD SUCC 125 MG/2ML VIAL IV STA (19:35)
[2020-11-10] MEDS ORDERED: DEXTROSE 50% SYRINGE 50 ML IV PRN (19:45)
[2020-11-10] MEDS: CEFTRIAXONE SOD 1 GM in DEXTROSE 5% 50ML 50 ML IV SCH (20:21)
[2020-11-10] MEDS ORDERED: SODIUM CHLORIDE 0.9% 50ML 50 ML ONE (20:28)
[2020-11-10] MEDS ORDERED: CEFTRIAXONE SOD 1 GM VIAL ONE (20:28)
[2020-11-10] MEDS: AZITHROMYCIN 500MG/NS 250 ML 250 ML IV SCH (21:01)
[2020-11-10] MEDS: ALBUTEROL SULFATE HFA 8GM INHALATION AEROSOL INH SCH (22:00)
[2020-11-10] MEDS ORDERED: METOPROLOL TARTRATE INJ 1 MG/ML VIAL IV PRN (22:30)
[2020-11-10] MEDS ORDERED: POLYETHYLENE GLYCOL 3350 17 GM PACK PO PRN (22:30)
[2020-11-10] MEDS ORDERED: ONDANSETRON HCL INJ 2MG/ML 2ML 2 MG/ML VIAL IV PRN (22:30)
[2020-11-11] MEDS: ALBUTEROL SULFATE HFA 8GM INHALATION AEROSOL INH SCH ×5 (00:10→19:40)
[2020-11-11] MEDS: INSULIN REGULAR, HUMAN 100 UNIT/1 ML 3ML VIAL SQ SCH ×5 (00:21→22:37)
[2020-11-11] MEDS: INSULIN GLARGINE 100 UNITS/ML VIAL SQ SCH ×2 (00:21→22:37)
[2020-11-11 00:51] LABS: MAGNESIUM 1.8 MG/DL (1.3-2.1); PHOSPHORUS 2.8 MG/DL (2.3-4.7)
[2020-11-11 01:10] LABS: CREATINE KINASE MB 2.9 ng/mL (0-5.0)
[2020-11-11 01:11] LABS: THYROID STIMULATING HORMONE 0.169 uIU/mL (0.350-4.940)
[2020-11-11 06:07] LABS: BASOPHILS % 0.4 % (0.0-1.0); EOSINOPHILS % 0.4 % (0.0-6.0); HEMATOCRIT 40.9 % (38.2-49.6); HEMOGLOBIN 13.2 g/dL (14.0-18.0); LYMPHOCYTES # (AUTO) 0.6 (1.0-3.2); LYMPHOCYTES % 20.4 % (18.0-39.1); MEAN CORPUSCULAR HEMOGLOBIN 29.8 pg (28-32); MEAN CORPUSCULAR HGB CONC 32.3 g/dL (31-35); MEAN CORPUSCULAR VOLUME 92.3 fL (81-99); MONOCYTES # (AUTO) 0.1 (0.2-0.8); MONOCYTES % 3.3 % (4.4-11.3); NEUTROPHILS # (AUTO) 2.1 (2.1-6.9); NEUTROPHILS % 75.1 % (38.7-80.0); PLATELET COUNT 141 x10e3/uL (140-360); RED BLOOD COUNT 4.43 x10e6/uL (4.3-5.7); RED CELL DISTRIBUTION WIDTH 12.7 % (11.7-14.4)
[2020-11-11] MEDS ORDERED: NOREPINEPHRINE INJ 4MG/4ML 8 MG in DEXTROSE 5% 250ML 250 ML IV ONE (06:15)
[2020-11-11 06:35] LABS: ALANINE AMINOTRANSFERASE 47 IU/L (0-55); ALBUMIN 2.8 g/dL (3.5-5.0); ALBUMIN/GLOBULIN RATIO 0.9 (0.8-2.0); ALKALINE PHOSPHATASE 59 IU/L (40-150); ANION GAP 16.4 mmol/L (8-16); BLOOD UREA NITROGEN 14 mg/dL (7-26); BUN/CREATININE RATIO 19 (6-25); CALCIUM 7.8 mg/dL (8.4-10.2); CARBON DIOXIDE 24 mmol/L (22-29); CHLORIDE 101 mmol/L (98-107); CREATININE, SERUM 0.73 mg/dL (0.72-1.25); EST GLOMERULAR FILTRATION RATE > 60 ML/MIN (60-); GLUCOSE 253 mg/dL (74-118); POTASSIUM 4.4 mmol/L (3.5-5.1); SODIUM 137 mmol/L (136-145)
[2020-11-11 08:16] LABS: PLATELET ESTIMATE ADEQUATE
[2020-11-11 08:17] LABS: PLATELET MORPHOLOGY COMMENT NORMAL
[2020-11-11] MEDS: PANTOPRAZOLE SOD 40 MG TABEC PO SCH (08:41)
[2020-11-11] MEDS: CLOPIDOGREL BISULFATE 75 MG TAB PO SCH (08:41)
[2020-11-11] MEDS: ZINC SULFATE 220 MG CAP PO SCH (08:41)
[2020-11-11] MEDS: DOCUSATE SODIUM 100 MG CAP PO SCH ×2 (08:41→21:26)
[2020-11-11] MEDS: ASPIRIN 325 MG TAB PO SCH (08:41)
[2020-11-11] MEDS: MONTELUKAST SODIUM 10 MG TAB PO SCH (08:41)
[2020-11-11] MEDS ORDERED: DEXAMETHASONE SOD PHOS 10 MG/1 ML VIAL IV SCH (09:00)
[2020-11-11] MEDS ORDERED: REMDESIVIR 200MG/NS 100ML 200 MG in SODIUM CHLORIDE 0.9% 100 ML 100 ML IV ONE (13:30)
[2020-11-11] MEDS: SIMVASTATIN 40 MG TAB PO SCH (14:33)
[2020-11-11] MEDS ORDERED: ENOXAPARIN SOD INJ 40 MG/0.4 ML SYR SC SCH (17:00)
[2020-11-11 17:35] LABS: CREATINE KINASE MB 4.2 ng/mL (0-5.0)
[2020-11-11] MEDS ORDERED: REMDESIVIR 200MG/NS 100ML 200 MG IV SCH (20:15)
[2020-11-11] MEDS ORDERED: DEXAMETHASONE 4 MG TAB PO SCH (21:00)
[2020-11-11] MEDS: CEFTRIAXONE SOD 1 GM in DEXTROSE 5% 50ML 50 ML IV SCH (21:30)
[2020-11-11] MEDS ORDERED: CEFTRIAXONE SOD 1 GM VIAL ONE (21:38)
[2020-11-11] MEDS: AZITHROMYCIN 500MG/NS 250 ML 250 ML IV SCH (23:49)
[2020-11-12] VITALS (11 sets, daily range): BP systolic 116–148; BP diastolic 53–84
[2020-11-12] MEDS: ALBUTEROL SULFATE HFA 8GM INHALATION AEROSOL INH SCH ×6 (02:25→22:00)
[2020-11-12] MEDS ORDERED: REMDESIVIR 100MG/NS 100ML 100 MG in SODIUM CHLORIDE 0.9% 100 ML 100 ML IV SCH (08:00)
[2020-11-12 08:27] LABS: BASOPHILS % 0.1 % (0.0-1.0); HEMATOCRIT 41.5 % (38.2-49.6); HEMOGLOBIN 13.8 g/dL (14.0-18.0); LYMPHOCYTES # (AUTO) 0.8 (1.0-3.2); LYMPHOCYTES % 7.7 % (18.0-39.1); MEAN CORPUSCULAR HEMOGLOBIN 29.9 pg (28-32); MEAN CORPUSCULAR HGB CONC 33.3 g/dL (31-35); MONOCYTES # (AUTO) 0.6 (0.2-0.8); MONOCYTES % 5.8 % (4.4-11.3); NEUTROPHILS # (AUTO) 8.4 (2.1-6.9); NEUTROPHILS % 85.9 % (38.7-80.0); PLATELET COUNT 245 x10e3/uL (140-360); RED BLOOD COUNT 4.61 x10e6/uL (4.3-5.7); RED CELL DISTRIBUTION WIDTH 12.4 % (11.7-14.4)
[2020-11-12] MEDS ORDERED: ATROVENT HFA12.9 GM INH (08:43)
[2020-11-12 08:48] LABS: ALANINE AMINOTRANSFERASE 52 IU/L (0-55); ALBUMIN 2.9 g/dL (3.5-5.0); ALBUMIN/GLOBULIN RATIO 0.9 (0.8-2.0); ALKALINE PHOSPHATASE 61 IU/L (40-150); ANION GAP 16.7 mmol/L (8-16); BLOOD UREA NITROGEN 18 mg/dL (7-26); BUN/CREATININE RATIO 26 (6-25); CALCIUM 8.3 mg/dL (8.4-10.2); CARBON DIOXIDE 26 mmol/L (22-29); CHLORIDE 103 mmol/L (98-107); CREATININE, SERUM 0.69 mg/dL (0.72-1.25); EST GLOMERULAR FILTRATION RATE > 60 ML/MIN (60-); GLUCOSE 240 mg/dL (74-118); MAGNESIUM 1.9 MG/DL (1.3-2.1); POTASSIUM 3.7 mmol/L (3.5-5.1); SODIUM 142 mmol/L (136-145)
[2020-11-12] MEDS ORDERED: AZITHROMYCIN 500MG/NS 250 ML 250 ML IV SCH (09:00)
[2020-11-12] MEDS ORDERED: CEFTRIAXONE SOD 2 GM 100 ML IV SCH (09:00)
[2020-11-12] MEDS ORDERED: ZINC SULFATE 220 MG CAP PO SCH (09:00)
[2020-11-12] MEDS: ASPIRIN 325 MG TAB PO SCH (09:51)
[2020-11-12] MEDS: PANTOPRAZOLE SOD 40 MG TABEC PO SCH (09:52)
[2020-11-12] MEDS: CLOPIDOGREL BISULFATE 75 MG TAB PO SCH (09:52)
[2020-11-12] MEDS: ASCORBIC ACID 500 MG TAB PO SCH ×2 (09:52→17:34)
[2020-11-12] MEDS: DOCUSATE SODIUM 100 MG CAP PO SCH ×2 (09:52→17:34)
[2020-11-12] MEDS: ZINC SULFATE 220 MG CAP PO SCH (09:53)
[2020-11-12] MEDS: ENOXAPARIN SOD INJ 60 MG/0.6 ML SYR SC SCH ×2 (09:53→17:34)
[2020-11-12] MEDS: SIMVASTATIN 40 MG TAB PO SCH (09:53)
[2020-11-12] MEDS: MONTELUKAST SODIUM 10 MG TAB PO SCH (10:01)
[2020-11-12] MEDS: INSULIN REGULAR, HUMAN 100 UNIT/1 ML 3ML VIAL SQ SCH ×4 (10:50→20:57)
[2020-11-12] MEDS ORDERED: ALBUTEROL/IPRATROPIUM 3 ML NEB ONE (13:17)
[2020-11-12] MEDS ORDERED: REMDESIVIR 100MG/NS 100ML 100 MG IV SCH ×2 (13:30→20:15)
[2020-11-12] MEDS: METHYLPREDNISOLONE SOD SUCC 125 MG/2ML VIAL IV SCH ×2 (14:55→20:12)
[2020-11-12] MEDS: CEFTRIAXONE SOD 1 GM in DEXTROSE 5% 50ML 50 ML IV SCH (20:55)
[2020-11-12] MEDS: AZITHROMYCIN 500MG/NS 250 ML 250 ML IV SCH (20:55)
[2020-11-12] MEDS: INSULIN GLARGINE 100 UNITS/ML VIAL SQ SCH (20:57)
[2020-11-13] VITALS (23 sets, daily range): BP systolic 126–174; BP diastolic 66–95
[2020-11-13] MEDS: ALBUTEROL SULFATE HFA 8GM INHALATION AEROSOL INH SCH ×6 (02:00→21:09)
[2020-11-13 05:59] LABS: BASOPHILS % 0.1 % (0.0-1.0); HEMATOCRIT 42.1 % (38.2-49.6); HEMOGLOBIN 13.8 g/dL (14.0-18.0); LYMPHOCYTES # (AUTO) 0.7 (1.0-3.2); LYMPHOCYTES % 8.3 % (18.0-39.1); MEAN CORPUSCULAR HEMOGLOBIN 30.3 pg (28-32); MEAN CORPUSCULAR HGB CONC 32.8 g/dL (31-35); MEAN CORPUSCULAR VOLUME 92.5 fL (81-99); MONOCYTES # (AUTO) 0.6 (0.2-0.8); MONOCYTES % 7.3 % (4.4-11.3); NEUTROPHILS # (AUTO) 6.9 (2.1-6.9); NEUTROPHILS % 83.8 % (38.7-80.0); PLATELET COUNT 241 x10e3/uL (140-360); RED BLOOD COUNT 4.55 x10e6/uL (4.3-5.7); RED CELL DISTRIBUTION WIDTH 12.7 % (11.7-14.4)
[2020-11-13] MEDS: INSULIN REGULAR, HUMAN 100 UNIT/1 ML 3ML VIAL SQ SCH ×4 (08:52→21:09)
[2020-11-13] MEDS: PANTOPRAZOLE SOD 40 MG TABEC PO SCH (14:31)
[2020-11-13] MEDS: ZINC SULFATE 220 MG CAP PO SCH (14:31)
[2020-11-13] MEDS: SIMVASTATIN 40 MG TAB PO SCH (14:31)
[2020-11-13] MEDS: ASPIRIN 325 MG TAB PO SCH (14:31)
[2020-11-13] MEDS: DOCUSATE SODIUM 100 MG CAP PO SCH ×2 (14:31→17:01)
[2020-11-13] MEDS: MONTELUKAST SODIUM 10 MG TAB PO SCH (14:31)
[2020-11-13] MEDS: CLOPIDOGREL BISULFATE 75 MG TAB PO SCH (14:31)
[2020-11-13] MEDS: ASCORBIC ACID 500 MG TAB PO SCH ×2 (14:31→17:01)
[2020-11-13] MEDS: METHYLPREDNISOLONE SOD SUCC 125 MG/2ML VIAL IV SCH ×2 (14:31→21:08)
[2020-11-13] MEDS: ENOXAPARIN SOD INJ 60 MG/0.6 ML SYR SC SCH ×2 (14:31→17:01)
[2020-11-13] MEDS: REMDESIVIR 100MG/NS 100ML 100 MG in SODIUM CHLORIDE 0.9% 100 ML 100 ML IV SCH (17:00)
[2020-11-13] MEDS: HYDROCODONE/APAP 10MG-325MG TAB PO PRN (18:14)
[2020-11-13] MEDS: CALCIUM CARBONATE 500 MG CHEWABLE TABS PO PRN (18:34)
[2020-11-13] MEDS: CEFTRIAXONE SOD 1 GM in DEXTROSE 5% 50ML 50 ML IV SCH (20:00)
[2020-11-13] MEDS: AZITHROMYCIN 500MG/NS 250 ML 250 ML IV SCH (20:40)
[2020-11-13] MEDS ORDERED: INSULIN GLARGINE 100 UNITS/ML VIAL ONE (20:56)
[2020-11-13] MEDS ORDERED: INSULIN REGULAR, HUMAN 100 UNIT/1 ML 3ML VIAL ONE (20:56)
[2020-11-13] MEDS ORDERED: METHYLPREDNISOLONE SOD SUCC 125 MG/2ML VIAL ONE (20:56)
[2020-11-13] MEDS: INSULIN GLARGINE 100 UNITS/ML VIAL SQ SCH (21:09)
[2020-11-14] VITALS (8 sets, daily range): BP systolic 120–155; BP diastolic 50–80
[2020-11-14] MEDS: ALBUTEROL SULFATE HFA 8GM INHALATION AEROSOL INH SCH ×6 (02:18→22:00)
[2020-11-14 06:22] LABS: HEMATOCRIT 40.1 % (38.2-49.6); LYMPHOCYTES # (AUTO) 0.8 (1.0-3.2); LYMPHOCYTES % 10.4 % (18.0-39.1); MEAN CORPUSCULAR HEMOGLOBIN 29.7 pg (28-32); MEAN CORPUSCULAR HGB CONC 32.4 g/dL (31-35); MEAN CORPUSCULAR VOLUME 91.8 fL (81-99); MONOCYTES # (AUTO) 0.6 (0.2-0.8); MONOCYTES % 7.8 % (4.4-11.3); NEUTROPHILS # (AUTO) 6.4 (2.1-6.9); NEUTROPHILS % 81.3 % (38.7-80.0); PLATELET COUNT 249 x10e3/uL (140-360); RED BLOOD COUNT 4.37 x10e6/uL (4.3-5.7); RED CELL DISTRIBUTION WIDTH 12.7 % (11.7-14.4)
[2020-11-14 06:39] LABS: ALANINE AMINOTRANSFERASE 63 IU/L (0-55); ALBUMIN 2.7 g/dL (3.5-5.0); ALKALINE PHOSPHATASE 58 IU/L (40-150); BLOOD UREA NITROGEN 21 mg/dL (7-26); BUN/CREATININE RATIO 30 (6-25); CALCIUM 7.9 mg/dL (8.4-10.2); CARBON DIOXIDE 31 mmol/L (22-29); CHLORIDE 106 mmol/L (98-107); CREATININE, SERUM 0.71 mg/dL (0.72-1.25); EST GLOMERULAR FILTRATION RATE > 60 ML/MIN (60-); GLUCOSE 189 mg/dL (74-118); SODIUM 145 mmol/L (136-145)
[2020-11-14] MEDS: PANTOPRAZOLE SOD 40 MG TABEC PO SCH (09:07)
[2020-11-14] MEDS: CLOPIDOGREL BISULFATE 75 MG TAB PO SCH (09:07)
[2020-11-14] MEDS: ASPIRIN 325 MG TAB PO SCH (09:07)
[2020-11-14] MEDS: METHYLPREDNISOLONE SOD SUCC 125 MG/2ML VIAL IV SCH ×2 (09:07→22:36)
[2020-11-14] MEDS: DOCUSATE SODIUM 100 MG CAP PO SCH ×2 (09:07→16:12)
[2020-11-14] MEDS: ZINC SULFATE 220 MG CAP PO SCH (09:08)
[2020-11-14] MEDS: ASCORBIC ACID 500 MG TAB PO SCH ×2 (09:08→16:12)
[2020-11-14] MEDS: MONTELUKAST SODIUM 10 MG TAB PO SCH (09:08)
[2020-11-14] MEDS: SIMVASTATIN 40 MG TAB PO SCH (09:08)
[2020-11-14] MEDS: ENOXAPARIN SOD INJ 60 MG/0.6 ML SYR SC SCH ×2 (09:08→16:12)
[2020-11-14] MEDS: INSULIN REGULAR, HUMAN 100 UNIT/1 ML 3ML VIAL SQ SCH ×4 (09:12→23:39)
[2020-11-14] MEDS: REMDESIVIR 100MG/NS 100ML 100 MG in SODIUM CHLORIDE 0.9% 100 ML 100 ML IV SCH (16:07)
[2020-11-14] MEDS: HYDROCODONE/APAP 10MG-325MG TAB PO PRN (16:13)
[2020-11-14] MEDS: INSULIN GLARGINE 100 UNITS/ML VIAL SQ SCH (21:00)
[2020-11-14] MEDS ORDERED: CEFTRIAXONE SOD 1 GM VIAL ONE (22:26)
[2020-11-14] MEDS ORDERED: SODIUM CHLORIDE 0.9% 50ML 50 ML ONE (22:27)
[2020-11-14] MEDS: CEFTRIAXONE SOD 1 GM in DEXTROSE 5% 50ML 50 ML IV SCH (22:36)
[2020-11-14] MEDS ORDERED: SODIUM CHLORIDE 0.9% 250ML 250 ML ONE (23:05)
[2020-11-14] MEDS: AZITHROMYCIN 500MG/NS 250 ML 250 ML IV SCH (23:11)
[2020-11-15] VITALS (8 sets, daily range): BP systolic 121–141; BP diastolic 57–71
[2020-11-15] MEDS: INSULIN REGULAR, HUMAN 100 UNIT/1 ML 3ML VIAL SQ SCH ×4 (07:30→21:20)
[2020-11-15] MEDS: ALBUTEROL SULFATE HFA 8GM INHALATION AEROSOL INH SCH ×6 (07:43→22:00)
[2020-11-15] MEDS: ASCORBIC ACID 500 MG TAB PO SCH ×2 (09:00→16:31)
[2020-11-15] MEDS: PANTOPRAZOLE SOD 40 MG TABEC PO SCH (09:00)
[2020-11-15] MEDS: METHYLPREDNISOLONE SOD SUCC 125 MG/2ML VIAL IV SCH (09:00)
[2020-11-15] MEDS: ZINC SULFATE 220 MG CAP PO SCH (09:00)
[2020-11-15] MEDS: DOCUSATE SODIUM 100 MG CAP PO SCH ×2 (09:00→16:31)
[2020-11-15] MEDS: MONTELUKAST SODIUM 10 MG TAB PO SCH (09:00)
[2020-11-15] MEDS: ENOXAPARIN SOD INJ 60 MG/0.6 ML SYR SC SCH ×2 (09:00→16:31)
[2020-11-15] MEDS: CLOPIDOGREL BISULFATE 75 MG TAB PO SCH (09:00)
[2020-11-15] MEDS: SIMVASTATIN 40 MG TAB PO SCH (09:00)
[2020-11-15] MEDS: ASPIRIN 325 MG TAB PO SCH (09:00)
[2020-11-15 10:02] LABS: BASOPHILS % 0.1 % (0.0-1.0); HEMATOCRIT 41.1 % (38.2-49.6); HEMOGLOBIN 13.5 g/dL (14.0-18.0); LYMPHOCYTES # (AUTO) 0.8 (1.0-3.2); LYMPHOCYTES % 11.2 % (18.0-39.1); MEAN CORPUSCULAR HEMOGLOBIN 29.9 pg (28-32); MEAN CORPUSCULAR HGB CONC 32.8 g/dL (31-35); MEAN CORPUSCULAR VOLUME 91.1 fL (81-99); MONOCYTES # (AUTO) 0.5 (0.2-0.8); NEUTROPHILS # (AUTO) 5.5 (2.1-6.9); NEUTROPHILS % 80.4 % (38.7-80.0); PLATELET COUNT 238 x10e3/uL (140-360); RED BLOOD COUNT 4.51 x10e6/uL (4.3-5.7); RED CELL DISTRIBUTION WIDTH 12.2 % (11.7-14.4)
[2020-11-15 10:11] LABS: ALANINE AMINOTRANSFERASE 75 IU/L (0-55); ALBUMIN 2.7 g/dL (3.5-5.0); ALKALINE PHOSPHATASE 64 IU/L (40-150); ANION GAP 12.7 mmol/L (8-16); BLOOD UREA NITROGEN 17 mg/dL (7-26); BUN/CREATININE RATIO 25 (6-25); CALCIUM 7.7 mg/dL (8.4-10.2); CARBON DIOXIDE 27 mmol/L (22-29); CHLORIDE 103 mmol/L (98-107); CREATININE, SERUM 0.69 mg/dL (0.72-1.25); EST GLOMERULAR FILTRATION RATE > 60 ML/MIN (60-); GLUCOSE 247 mg/dL (74-118); POTASSIUM 3.7 mmol/L (3.5-5.1); SODIUM 139 mmol/L (136-145)
[2020-11-15] MEDS: REMDESIVIR 100MG/NS 100ML 100 MG in SODIUM CHLORIDE 0.9% 100 ML 100 ML IV SCH (13:00)
[2020-11-15] MEDS: HYDROCODONE/APAP 10MG-325MG TAB PO PRN (16:10)
[2020-11-15] MEDS ORDERED: CEFTRIAXONE SOD 1 GM VIAL ONE (20:56)
[2020-11-15] MEDS ORDERED: SODIUM CHLORIDE 0.9% 50ML 0 ML ONE (20:57)
[2020-11-15] MEDS: METHYLPREDNISOLONE SOD SUCC 40 MG/ML VIAL 1ML IV SCH (21:15)
[2020-11-15] MEDS: CEFTRIAXONE SOD 1 GM in DEXTROSE 5% 50ML 50 ML IV SCH (21:15)
[2020-11-15] MEDS: INSULIN GLARGINE 100 UNITS/ML VIAL SQ SCH (21:20)
[2020-11-15] MEDS ORDERED: SODIUM CHLORIDE 0.9% 250ML 250 ML ONE (21:32)
[2020-11-15] MEDS: AZITHROMYCIN 500MG/NS 250 ML 250 ML IV SCH (21:50)
[2020-11-16] VITALS (8 sets, daily range): BP systolic 108–129; BP diastolic 57–98
[2020-11-16] MEDS: ALBUTEROL SULFATE HFA 8GM INHALATION AEROSOL INH SCH ×6 (02:05→21:39)
[2020-11-16 06:04] LABS: LYMPHOCYTES # (AUTO) 0.8 (1.0-3.2); LYMPHOCYTES % 10.8 % (18.0-39.1); MEAN CORPUSCULAR HEMOGLOBIN 29.7 pg (28-32); MEAN CORPUSCULAR HGB CONC 32.5 g/dL (31-35); MEAN CORPUSCULAR VOLUME 91.5 fL (81-99); MONOCYTES # (AUTO) 0.5 (0.2-0.8); MONOCYTES % 6.7 % (4.4-11.3); NEUTROPHILS # (AUTO) 5.9 (2.1-6.9); NEUTROPHILS % 81.5 % (38.7-80.0); PLATELET COUNT 247 x10e3/uL (140-360); RED BLOOD COUNT 4.37 x10e6/uL (4.3-5.7); RED CELL DISTRIBUTION WIDTH 12.2 % (11.7-14.4)
[2020-11-16 06:29] LABS: ALANINE AMINOTRANSFERASE 88 IU/L (0-55); ALBUMIN 2.7 g/dL (3.5-5.0); ALKALINE PHOSPHATASE 60 IU/L (40-150); BLOOD UREA NITROGEN 17 mg/dL (7-26); BUN/CREATININE RATIO 26 (6-25); CALCIUM 7.7 mg/dL (8.4-10.2); CARBON DIOXIDE 30 mmol/L (22-29); CHLORIDE 103 mmol/L (98-107); CREATININE, SERUM 0.66 mg/dL (0.72-1.25); EST GLOMERULAR FILTRATION RATE > 60 ML/MIN (60-); GLUCOSE 136 mg/dL (74-118); SODIUM 142 mmol/L (136-145)
[2020-11-16] MEDS: INSULIN REGULAR, HUMAN 100 UNIT/1 ML 3ML VIAL SQ SCH ×4 (07:30→21:05)
[2020-11-16] MEDS: HYDROCODONE/APAP 10MG-325MG TAB PO PRN ×2 (08:55→20:02)
[2020-11-16] MEDS: CALCIUM CARBONATE 500 MG CHEWABLE TABS PO PRN ×2 (08:55→20:02)
[2020-11-16] MEDS: ASPIRIN 325 MG TAB PO SCH (09:12)
[2020-11-16] MEDS: ZINC SULFATE 220 MG CAP PO SCH (09:12)
[2020-11-16] MEDS: METHYLPREDNISOLONE SOD SUCC 40 MG/ML VIAL 1ML IV SCH ×2 (09:12→20:43)
[2020-11-16] MEDS: SIMVASTATIN 40 MG TAB PO SCH (09:12)
[2020-11-16] MEDS: DOCUSATE SODIUM 100 MG CAP PO SCH ×2 (09:12→17:00)
[2020-11-16] MEDS: ENOXAPARIN SOD INJ 60 MG/0.6 ML SYR SC SCH ×2 (09:12→17:11)
[2020-11-16] MEDS: CLOPIDOGREL BISULFATE 75 MG TAB PO SCH (09:12)
[2020-11-16] MEDS: MONTELUKAST SODIUM 10 MG TAB PO SCH (09:12)
[2020-11-16] MEDS: PANTOPRAZOLE SOD 40 MG TABEC PO SCH (09:12)
[2020-11-16] MEDS: ASCORBIC ACID 500 MG TAB PO SCH ×2 (09:12→17:11)
[2020-11-16] MEDS ORDERED: REMDESIVIR 100MG/NS 100ML 100 MG IV ONE (12:20)
[2020-11-16] MEDS: REMDESIVIR 100MG/NS 100ML 100 MG in SODIUM CHLORIDE 0.9% 100 ML 100 ML IV SCH (13:11)
[2020-11-16] MEDS: CEFTRIAXONE SOD 1 GM in DEXTROSE 5% 50ML 50 ML IV SCH (20:01)
[2020-11-16] MEDS: AZITHROMYCIN 500MG/NS 250 ML 250 ML IV SCH (20:43)
[2020-11-16] MEDS: INSULIN GLARGINE 100 UNITS/ML VIAL SQ SCH (21:05)
[2020-11-17] VITALS (8 sets, daily range): BP systolic 120–137; BP diastolic 52–72
[2020-11-17] MEDS: ALBUTEROL SULFATE HFA 8GM INHALATION AEROSOL INH SCH ×6 (00:56→20:43)
[2020-11-17] MEDS: CALCIUM CARBONATE 500 MG CHEWABLE TABS PO PRN (03:30)
[2020-11-17 06:06] LABS: BASOPHILS % 0.1 % (0.0-1.0); HEMATOCRIT 38.3 % (38.2-49.6); HEMOGLOBIN 12.7 g/dL (14.0-18.0); LYMPHOCYTES # (AUTO) 0.7 (1.0-3.2); LYMPHOCYTES % 7.9 % (18.0-39.1); MEAN CORPUSCULAR HEMOGLOBIN 29.7 pg (28-32); MEAN CORPUSCULAR HGB CONC 33.2 g/dL (31-35); MEAN CORPUSCULAR VOLUME 89.5 fL (81-99); MONOCYTES # (AUTO) 0.6 (0.2-0.8); MONOCYTES % 6.9 % (4.4-11.3); NEUTROPHILS # (AUTO) 7.4 (2.1-6.9); NEUTROPHILS % 84.4 % (38.7-80.0); PLATELET COUNT 249 x10e3/uL (140-360); RED BLOOD COUNT 4.28 x10e6/uL (4.3-5.7); RED CELL DISTRIBUTION WIDTH 12.4 % (11.7-14.4)
[2020-11-17 06:26] LABS: ALANINE AMINOTRANSFERASE 78 IU/L (0-55); ALBUMIN 2.4 g/dL (3.5-5.0); ALBUMIN/GLOBULIN RATIO 0.9 (0.8-2.0); ALKALINE PHOSPHATASE 55 IU/L (40-150); ANION GAP 10.9 mmol/L (8-16); BLOOD UREA NITROGEN 15 mg/dL (7-26); BUN/CREATININE RATIO 27 (6-25); CALCIUM 7.6 mg/dL (8.4-10.2); CARBON DIOXIDE 31 mmol/L (22-29); CHLORIDE 103 mmol/L (98-107); CREATININE, SERUM 0.56 mg/dL (0.72-1.25); EST GLOMERULAR FILTRATION RATE > 60 ML/MIN (60-); GLUCOSE 130 mg/dL (74-118); POTASSIUM 3.9 mmol/L (3.5-5.1); SODIUM 141 mmol/L (136-145)
[2020-11-17] MEDS: INSULIN REGULAR, HUMAN 100 UNIT/1 ML 3ML VIAL SQ SCH ×4 (07:30→21:15)
[2020-11-17] MEDS ORDERED: DEXAMETHASONE SOD PHOS 10 MG/1 ML VIAL IV SCH (09:00)
[2020-11-17] MEDS: METHYLPREDNISOLONE SOD SUCC 40 MG/ML VIAL 1ML IV SCH ×2 (09:01→21:45)
[2020-11-17] MEDS: CLOPIDOGREL BISULFATE 75 MG TAB PO SCH (09:01)
[2020-11-17] MEDS: PANTOPRAZOLE SOD 40 MG TABEC PO SCH (09:01)
[2020-11-17] MEDS: MONTELUKAST SODIUM 10 MG TAB PO SCH (09:01)
[2020-11-17] MEDS: DOCUSATE SODIUM 100 MG CAP PO SCH ×2 (09:01→16:58)
[2020-11-17] MEDS: ASPIRIN 325 MG TAB PO SCH (09:01)
[2020-11-17] MEDS: HYDROCODONE/APAP 10MG-325MG TAB PO PRN ×3 (09:02→21:15)
[2020-11-17] MEDS: ENOXAPARIN SOD INJ 60 MG/0.6 ML SYR SC SCH ×2 (09:02→16:58)
[2020-11-17] MEDS: ZINC SULFATE 220 MG CAP PO SCH (09:02)
[2020-11-17] MEDS: SIMVASTATIN 40 MG TAB PO SCH (09:02)
[2020-11-17] MEDS: ASCORBIC ACID 500 MG TAB PO SCH ×2 (09:02→16:58)
[2020-11-17] MEDS: CEFTRIAXONE SOD 1 GM in DEXTROSE 5% 50ML 50 ML IV SCH (20:24)
[2020-11-17] MEDS: INSULIN GLARGINE 100 UNITS/ML VIAL SQ SCH (21:15)
[2020-11-17] MEDS: ZOLPIDEM TARTRATE 5 MG TAB PO PRN (21:45)
[2020-11-17] MEDS: AZITHROMYCIN 500MG/NS 250 ML 250 ML IV SCH (21:45)
[2020-11-18] VITALS (7 sets, daily range): BP systolic 119–135; BP diastolic 59–70
[2020-11-18] MEDS: ALBUTEROL SULFATE HFA 8GM INHALATION AEROSOL INH SCH ×6 (02:00→19:15)
[2020-11-18] MEDS: INSULIN REGULAR, HUMAN 100 UNIT/1 ML 3ML VIAL SQ SCH ×4 (08:51→22:06)
[2020-11-18] MEDS: MONTELUKAST SODIUM 10 MG TAB PO SCH (08:53)
[2020-11-18] MEDS: ZINC SULFATE 220 MG CAP PO SCH (08:53)
[2020-11-18] MEDS: SIMVASTATIN 40 MG TAB PO SCH (08:53)
[2020-11-18] MEDS: METHYLPREDNISOLONE SOD SUCC 40 MG/ML VIAL 1ML IV SCH ×2 (08:53→22:00)
[2020-11-18] MEDS: DOCUSATE SODIUM 100 MG CAP PO SCH ×2 (08:53→17:00)
[2020-11-18] MEDS: ASCORBIC ACID 500 MG TAB PO SCH ×2 (08:53→17:14)
[2020-11-18] MEDS: CLOPIDOGREL BISULFATE 75 MG TAB PO SCH (08:53)
[2020-11-18] MEDS: ENOXAPARIN SOD INJ 60 MG/0.6 ML SYR SC SCH ×2 (08:53→17:14)
[2020-11-18] MEDS: ASPIRIN 325 MG TAB PO SCH (08:53)
[2020-11-18] MEDS: PANTOPRAZOLE SOD 40 MG TABEC PO SCH (08:53)
[2020-11-18 09:11] LABS: BASOPHILS % 0.1 % (0.0-1.0); HEMATOCRIT 40.8 % (38.2-49.6); HEMOGLOBIN 13.3 g/dL (14.0-18.0); LYMPHOCYTES % 12.9 % (18.0-39.1); MEAN CORPUSCULAR HEMOGLOBIN 29.6 pg (28-32); MEAN CORPUSCULAR HGB CONC 32.6 g/dL (31-35); MEAN CORPUSCULAR VOLUME 90.9 fL (81-99); MONOCYTES # (AUTO) 0.7 (0.2-0.8); MONOCYTES % 8.5 % (4.4-11.3); NEUTROPHILS % 77.3 % (38.7-80.0); PLATELET COUNT 260 x10e3/uL (140-360); RED BLOOD COUNT 4.49 x10e6/uL (4.3-5.7); RED CELL DISTRIBUTION WIDTH 12.5 % (11.7-14.4)
[2020-11-18 09:38] LABS: ALANINE AMINOTRANSFERASE 73 IU/L (0-55); ALBUMIN 2.7 g/dL (3.5-5.0); ALKALINE PHOSPHATASE 58 IU/L (40-150); ANION GAP 10.6 mmol/L (8-16); BLOOD UREA NITROGEN 14 mg/dL (7-26); BUN/CREATININE RATIO 24 (6-25); CALCIUM 7.8 mg/dL (8.4-10.2); CARBON DIOXIDE 31 mmol/L (22-29); CHLORIDE 103 mmol/L (98-107); CREATININE, SERUM 0.58 mg/dL (0.72-1.25); EST GLOMERULAR FILTRATION RATE > 60 ML/MIN (60-); GLUCOSE 140 mg/dL (74-118); POTASSIUM 3.6 mmol/L (3.5-5.1); SODIUM 141 mmol/L (136-145)
[2020-11-18] MEDS: CEFTRIAXONE SOD 1 GM in DEXTROSE 5% 50ML 50 ML IV SCH (20:59)
[2020-11-18] MEDS: AZITHROMYCIN 500MG/NS 250 ML 250 ML IV SCH (22:00)
[2020-11-18] MEDS: HYDROCODONE/APAP 10MG-325MG TAB PO PRN (22:00)
[2020-11-18] MEDS: INSULIN GLARGINE 100 UNITS/ML VIAL SQ SCH (22:07)
[2020-11-18] MEDS: ZOLPIDEM TARTRATE 5 MG TAB PO PRN (23:00)
[2020-11-19] VITALS (9 sets, daily range): BP systolic 108–133; BP diastolic 49–69
[2020-11-19] MEDS: ALBUTEROL SULFATE HFA 8GM INHALATION AEROSOL INH SCH ×7 (00:11→21:30)
[2020-11-19] MEDS: INSULIN REGULAR, HUMAN 100 UNIT/1 ML 3ML VIAL SQ SCH ×4 (07:26→19:54)
[2020-11-19] MEDS: ASPIRIN 325 MG TAB PO SCH (09:05)
[2020-11-19] MEDS: METHYLPREDNISOLONE SOD SUCC 40 MG/ML VIAL 1ML IV SCH ×2 (09:05→20:12)
[2020-11-19] MEDS: MONTELUKAST SODIUM 10 MG TAB PO SCH (09:06)
[2020-11-19] MEDS: ZINC SULFATE 220 MG CAP PO SCH (09:06)
[2020-11-19] MEDS: DOCUSATE SODIUM 100 MG CAP PO SCH ×2 (09:06→17:00)
[2020-11-19] MEDS: CLOPIDOGREL BISULFATE 75 MG TAB PO SCH (09:06)
[2020-11-19] MEDS: SIMVASTATIN 40 MG TAB PO SCH (09:06)
[2020-11-19] MEDS: PANTOPRAZOLE SOD 40 MG TABEC PO SCH (09:06)
[2020-11-19] MEDS: ASCORBIC ACID 500 MG TAB PO SCH ×2 (09:06→17:04)
[2020-11-19] MEDS: CALCIUM CARBONATE 500 MG CHEWABLE TABS PO PRN ×3 (09:51→20:00)
[2020-11-19] MEDS: HYDROCODONE/APAP 10MG-325MG TAB PO PRN (19:54)
[2020-11-19] MEDS: INSULIN GLARGINE 100 UNITS/ML VIAL SQ SCH (19:54)
[2020-11-19] MEDS: CEFTRIAXONE SOD 1 GM in DEXTROSE 5% 50ML 50 ML IV SCH (20:00)
[2020-11-19] MEDS: ZOLPIDEM TARTRATE 5 MG TAB PO PRN (21:00)
[2020-11-19] MEDS: AZITHROMYCIN 500MG/NS 250 ML 250 ML IV SCH (21:15)
[2020-11-20] VITALS (8 sets, daily range): BP systolic 120–149; BP diastolic 63–95
[2020-11-20] MEDS: ALBUTEROL SULFATE HFA 8GM INHALATION AEROSOL INH SCH ×6 (02:00→22:00)
[2020-11-20] MEDS: INSULIN REGULAR, HUMAN 100 UNIT/1 ML 3ML VIAL SQ SCH ×4 (07:30→20:08)
[2020-11-20] MEDS: ASPIRIN 325 MG TAB PO SCH (08:47)
[2020-11-20] MEDS: ASCORBIC ACID 500 MG TAB PO SCH ×2 (08:47→16:46)
[2020-11-20] MEDS: ZINC SULFATE 220 MG CAP PO SCH (08:47)
[2020-11-20] MEDS: PANTOPRAZOLE SOD 40 MG TABEC PO SCH (08:47)
[2020-11-20] MEDS: DOCUSATE SODIUM 100 MG CAP PO SCH ×2 (08:47→16:46)
[2020-11-20] MEDS: ENOXAPARIN SOD INJ 60 MG/0.6 ML SYR SC SCH ×2 (08:47→20:08)
[2020-11-20] MEDS: METHYLPREDNISOLONE SOD SUCC 40 MG/ML VIAL 1ML IV SCH ×2 (08:47→20:05)
[2020-11-20] MEDS: SIMVASTATIN 40 MG TAB PO SCH (08:47)
[2020-11-20] MEDS: CLOPIDOGREL BISULFATE 75 MG TAB PO SCH (08:47)
[2020-11-20] MEDS: MONTELUKAST SODIUM 10 MG TAB PO SCH (08:47)
[2020-11-20] MEDS: INSULIN GLARGINE 100 UNITS/ML VIAL SQ SCH (20:08)
[2020-11-20] MEDS: CALCIUM CARBONATE 500 MG CHEWABLE TABS PO PRN (20:09)
[2020-11-20] MEDS: ACETAMINOPHEN 325 MG TAB PO PRN (20:09)
[2020-11-20] MEDS: ZOLPIDEM TARTRATE 5 MG TAB PO PRN (20:09)
[2020-11-21] VITALS (7 sets, daily range): BP systolic 119–130; BP diastolic 56–65
[2020-11-21] MEDS: ALBUTEROL SULFATE HFA 8GM INHALATION AEROSOL INH SCH ×6 (02:00→20:32)
[2020-11-21] MEDS: INSULIN REGULAR, HUMAN 100 UNIT/1 ML 3ML VIAL SQ SCH ×4 (07:30→20:05)
[2020-11-21] MEDS: DOCUSATE SODIUM 100 MG CAP PO SCH ×3 (08:29→16:32)
[2020-11-21] MEDS: ASPIRIN 325 MG TAB PO SCH (08:29)
[2020-11-21] MEDS: METHYLPREDNISOLONE SOD SUCC 40 MG/ML VIAL 1ML IV SCH ×2 (08:29→20:03)
[2020-11-21] MEDS: SIMVASTATIN 40 MG TAB PO SCH (08:30)
[2020-11-21] MEDS: CALCIUM CARBONATE 500 MG CHEWABLE TABS PO PRN ×2 (08:30→17:09)
[2020-11-21] MEDS: CLOPIDOGREL BISULFATE 75 MG TAB PO SCH (08:30)
[2020-11-21] MEDS: MONTELUKAST SODIUM 10 MG TAB PO SCH (08:30)
[2020-11-21] MEDS: ZINC SULFATE 220 MG CAP PO SCH (08:30)
[2020-11-21] MEDS: ASCORBIC ACID 500 MG TAB PO SCH ×2 (08:30→16:32)
[2020-11-21] MEDS: PANTOPRAZOLE SOD 40 MG TABEC PO SCH (08:30)
[2020-11-21] MEDS: ENOXAPARIN SOD INJ 60 MG/0.6 ML SYR SC SCH ×2 (08:30→20:03)
[2020-11-21] MEDS ORDERED: IPRATROPIUM BROMIDE INHALER 12.9 GM INH INH PRN (14:30)
[2020-11-21] MEDS: ACETAMINOPHEN 325 MG TAB PO PRN (17:10)
[2020-11-21] MEDS: INSULIN GLARGINE 100 UNITS/ML VIAL SQ SCH (20:05)
[2020-11-21] MEDS: ZOLPIDEM TARTRATE 5 MG TAB PO PRN (20:06)
[2020-11-22] VITALS (8 sets, daily range): BP systolic 101–151; BP diastolic 62–89
[2020-11-22] MEDS: ALBUTEROL SULFATE HFA 8GM INHALATION AEROSOL INH SCH ×6 (00:14→21:34)
[2020-11-22] MEDS: ACETAMINOPHEN 325 MG TAB PO PRN ×4 (00:16→23:30)
[2020-11-22] MEDS: INSULIN REGULAR, HUMAN 100 UNIT/1 ML 3ML VIAL SQ SCH ×4 (07:30→21:30)
[2020-11-22] MEDS: ZINC SULFATE 220 MG CAP PO SCH (09:34)
[2020-11-22] MEDS: CLOPIDOGREL BISULFATE 75 MG TAB PO SCH (09:34)
[2020-11-22] MEDS: METHYLPREDNISOLONE SOD SUCC 40 MG/ML VIAL 1ML IV SCH ×2 (09:34→21:34)
[2020-11-22] MEDS: DOCUSATE SODIUM 100 MG CAP PO SCH ×2 (09:34→17:00)
[2020-11-22] MEDS: MONTELUKAST SODIUM 10 MG TAB PO SCH (09:34)
[2020-11-22] MEDS: ASCORBIC ACID 500 MG TAB PO SCH ×2 (09:34→17:15)
[2020-11-22] MEDS: SIMVASTATIN 40 MG TAB PO SCH (09:34)
[2020-11-22] MEDS: PANTOPRAZOLE SOD 40 MG TABEC PO SCH (09:34)
[2020-11-22] MEDS: ASPIRIN 325 MG TAB PO SCH (09:34)
[2020-11-22] MEDS: ENOXAPARIN SOD INJ 60 MG/0.6 ML SYR SC SCH ×2 (09:34→21:34)
[2020-11-22] MEDS: CALCIUM CARBONATE 500 MG CHEWABLE TABS PO PRN (09:35)
[2020-11-22] MEDS: MAGNESIUM/ALUMINUM/SIMETHICONE 30 ML UDC PO PRN (15:45)
[2020-11-22] MEDS: INSULIN GLARGINE 100 UNITS/ML VIAL SQ SCH (21:30)
[2020-11-22] MEDS: ZOLPIDEM TARTRATE 5 MG TAB PO PRN (22:40)
[2020-11-23] VITALS (7 sets, daily range): BP systolic 107–132; BP diastolic 53–70
[2020-11-23] MEDS: ALBUTEROL SULFATE HFA 8GM INHALATION AEROSOL INH SCH ×6 (02:18→21:30)
[2020-11-23 05:43] LABS: BASOPHILS % 0.3 % (0.0-1.0); HEMATOCRIT 39.9 % (38.2-49.6); HEMOGLOBIN 13.2 g/dL (14.0-18.0); LYMPHOCYTES # (AUTO) 0.7 (1.0-3.2); LYMPHOCYTES % 6.5 % (18.0-39.1); MEAN CORPUSCULAR HEMOGLOBIN 30.9 pg (28-32); MEAN CORPUSCULAR HGB CONC 33.1 g/dL (31-35); MEAN CORPUSCULAR VOLUME 93.4 fL (81-99); MONOCYTES # (AUTO) 0.4 (0.2-0.8); MONOCYTES % 3.6 % (4.4-11.3); NEUTROPHILS # (AUTO) 9.4 (2.1-6.9); NEUTROPHILS % 88.8 % (38.7-80.0); PLATELET COUNT 191 x10e3/uL (140-360); RED BLOOD COUNT 4.27 x10e6/uL (4.3-5.7)
[2020-11-23 06:16] LABS: ALANINE AMINOTRANSFERASE 67 IU/L (0-55); ALBUMIN 2.5 g/dL (3.5-5.0); ALBUMIN/GLOBULIN RATIO 0.9 (0.8-2.0); ALKALINE PHOSPHATASE 66 IU/L (40-150); ANION GAP 12.4 mmol/L (8-16); BLOOD UREA NITROGEN 10 mg/dL (7-26); BUN/CREATININE RATIO 17 (6-25); CARBON DIOXIDE 29 mmol/L (22-29); CHLORIDE 102 mmol/L (98-107); EST GLOMERULAR FILTRATION RATE > 60 ML/MIN (60-); GLUCOSE 169 mg/dL (74-118); POTASSIUM 4.4 mmol/L (3.5-5.1); SODIUM 139 mmol/L (136-145)
[2020-11-23] MEDS: INSULIN REGULAR, HUMAN 100 UNIT/1 ML 3ML VIAL SQ SCH ×4 (07:30→21:15)
[2020-11-23] MEDS: ASCORBIC ACID 500 MG TAB PO SCH ×2 (08:54→17:18)
[2020-11-23] MEDS: ASPIRIN 325 MG TAB PO SCH (08:54)
[2020-11-23] MEDS: DOCUSATE SODIUM 100 MG CAP PO SCH ×2 (08:54→17:18)
[2020-11-23] MEDS: PANTOPRAZOLE SOD 40 MG TABEC PO SCH (08:54)
[2020-11-23] MEDS: MONTELUKAST SODIUM 10 MG TAB PO SCH (08:54)
[2020-11-23] MEDS: CLOPIDOGREL BISULFATE 75 MG TAB PO SCH (08:54)
[2020-11-23] MEDS: METHYLPREDNISOLONE SOD SUCC 40 MG/ML VIAL 1ML IV SCH ×2 (08:54→21:30)
[2020-11-23] MEDS: ENOXAPARIN SOD INJ 60 MG/0.6 ML SYR SC SCH ×2 (08:55→21:30)
[2020-11-23] MEDS: ZINC SULFATE 220 MG CAP PO SCH (08:55)
[2020-11-23] MEDS: SIMVASTATIN 40 MG TAB PO SCH (08:55)
[2020-11-23] MEDS: MAGNESIUM/ALUMINUM/SIMETHICONE 30 ML UDC PO PRN ×2 (09:59→23:00)
[2020-11-23] MEDS: INSULIN GLARGINE 100 UNITS/ML VIAL SQ SCH (21:15)
[2020-11-23] MEDS: ACETAMINOPHEN 325 MG TAB PO PRN (21:30)
[2020-11-23] MEDS: ZOLPIDEM TARTRATE 5 MG TAB PO PRN (21:30)
[2020-11-24] VITALS (8 sets, daily range): BP systolic 109–130; BP diastolic 45–71
[2020-11-24] MEDS: ALBUTEROL SULFATE HFA 8GM INHALATION AEROSOL INH SCH ×6 (02:30→22:30)
[2020-11-24] MEDS: MAGNESIUM/ALUMINUM/SIMETHICONE 30 ML UDC PO PRN ×3 (05:20→21:38)
[2020-11-24 05:30] LABS: BASOPHILS % 0.1 % (0.0-1.0); HEMATOCRIT 38.6 % (38.2-49.6); HEMOGLOBIN 12.7 g/dL (14.0-18.0); LYMPHOCYTES # (AUTO) 0.6 (1.0-3.2); LYMPHOCYTES % 5.8 % (18.0-39.1); MEAN CORPUSCULAR HGB CONC 32.9 g/dL (31-35); MEAN CORPUSCULAR VOLUME 91.3 fL (81-99); MONOCYTES # (AUTO) 0.4 (0.2-0.8); MONOCYTES % 3.4 % (4.4-11.3); NEUTROPHILS # (AUTO) 9.4 (2.1-6.9); PLATELET COUNT 193 x10e3/uL (140-360); RED BLOOD COUNT 4.23 x10e6/uL (4.3-5.7); RED CELL DISTRIBUTION WIDTH 13.1 % (11.7-14.4)
[2020-11-24] MEDS: ACETAMINOPHEN 325 MG TAB PO PRN ×2 (05:30→12:00)
[2020-11-24] MEDS: CALCIUM CARBONATE 500 MG CHEWABLE TABS PO PRN ×2 (05:52→21:38)
[2020-11-24] MEDS: INSULIN REGULAR, HUMAN 100 UNIT/1 ML 3ML VIAL SQ SCH ×4 (07:49→21:00)
[2020-11-24] MEDS: DOCUSATE SODIUM 100 MG CAP PO SCH ×2 (08:39→16:59)
[2020-11-24] MEDS: PANTOPRAZOLE SOD 40 MG TABEC PO SCH ×2 (08:39→16:59)
[2020-11-24] MEDS: CLOPIDOGREL BISULFATE 75 MG TAB PO SCH (08:39)
[2020-11-24] MEDS: MONTELUKAST SODIUM 10 MG TAB PO SCH (08:39)
[2020-11-24] MEDS: METHYLPREDNISOLONE SOD SUCC 40 MG/ML VIAL 1ML IV SCH ×2 (08:39→21:00)
[2020-11-24] MEDS: ASPIRIN 325 MG TAB PO SCH (08:39)
[2020-11-24] MEDS: SIMVASTATIN 40 MG TAB PO SCH (08:40)
[2020-11-24] MEDS: ASCORBIC ACID 500 MG TAB PO SCH ×2 (08:40→16:59)
[2020-11-24] MEDS: ENOXAPARIN SOD INJ 60 MG/0.6 ML SYR SC SCH ×2 (08:40→21:00)
[2020-11-24] MEDS: ZINC SULFATE 220 MG CAP PO SCH (08:40)
[2020-11-24] MEDS: INSULIN GLARGINE 100 UNITS/ML VIAL SQ SCH (21:00)
[2020-11-24] MEDS: ZOLPIDEM TARTRATE 5 MG TAB PO PRN (21:28)
[2020-11-25] VITALS (7 sets, daily range): BP systolic 115–126; BP diastolic 62–71
[2020-11-25] MEDS: ALBUTEROL SULFATE HFA 8GM INHALATION AEROSOL INH SCH ×7 (02:00→22:00)
[2020-11-25] MEDS: MAGNESIUM/ALUMINUM/SIMETHICONE 30 ML UDC PO PRN ×2 (05:25→20:46)
[2020-11-25] MEDS ORDERED: ZOLPIDEM TARTRATE 5 MG TAB PO PRN (05:30)
[2020-11-25] MEDS ORDERED: HYDROCODONE/APAP 5MG-325MG TAB PO PRN (05:30)
[2020-11-25] MEDS: METHYLPREDNISOLONE SOD SUCC 40 MG/ML VIAL 1ML IV SCH ×2 (08:33→20:45)
[2020-11-25] MEDS: PANTOPRAZOLE SOD 40 MG TABEC PO SCH ×2 (08:33→16:51)
[2020-11-25] MEDS: ZINC SULFATE 220 MG CAP PO SCH (08:33)
[2020-11-25] MEDS: ASPIRIN 325 MG TAB PO SCH (08:33)
[2020-11-25] MEDS: SIMVASTATIN 40 MG TAB PO SCH (08:33)
[2020-11-25] MEDS: ASCORBIC ACID 500 MG TAB PO SCH ×2 (08:33→16:51)
[2020-11-25] MEDS: MONTELUKAST SODIUM 10 MG TAB PO SCH (08:33)
[2020-11-25] MEDS: SUCRALFATE 1 GM TAB PO SCH ×4 (08:33→20:45)
[2020-11-25] MEDS: DOCUSATE SODIUM 100 MG CAP PO SCH ×2 (08:33→16:42)
[2020-11-25] MEDS: CLOPIDOGREL BISULFATE 75 MG TAB PO SCH (08:33)
[2020-11-25] MEDS: ENOXAPARIN SOD INJ 60 MG/0.6 ML SYR SC SCH ×2 (08:34→20:45)
[2020-11-25] MEDS: INSULIN REGULAR, HUMAN 100 UNIT/1 ML 3ML VIAL SQ SCH ×4 (08:43→21:00)
[2020-11-25] MEDS: INSULIN GLARGINE 100 UNITS/ML VIAL SQ SCH (21:00)
[2020-11-26] VITALS: BP 125/54
[2020-11-26] MEDS: ALBUTEROL SULFATE HFA 8GM INHALATION AEROSOL INH SCH ×4 (01:36→13:06)
[2020-11-26 04:00] VITALS: BP 115/61
[2020-11-26] MEDS: DOCUSATE SODIUM 100 MG CAP PO SCH (07:10)
[2020-11-26 08:00] VITALS: BP 126/64
[2020-11-26] MEDS: INSULIN REGULAR, HUMAN 100 UNIT/1 ML 3ML VIAL SQ SCH ×2 (08:34→11:52)
[2020-11-26] MEDS: SUCRALFATE 1 GM TAB PO SCH ×2 (08:45→11:52)
[2020-11-26] MEDS: ASCORBIC ACID 500 MG TAB PO SCH (08:45)
[2020-11-26] MEDS: ENOXAPARIN SOD INJ 60 MG/0.6 ML SYR SC SCH (08:45)
[2020-11-26] MEDS: ZINC SULFATE 220 MG CAP PO SCH (08:45)
[2020-11-26] MEDS: ASPIRIN 325 MG TAB PO SCH (08:45)
[2020-11-26] MEDS: MONTELUKAST SODIUM 10 MG TAB PO SCH (08:45)
[2020-11-26] MEDS: METHYLPREDNISOLONE SOD SUCC 40 MG/ML VIAL 1ML IV SCH (08:45)
[2020-11-26] MEDS: SIMVASTATIN 40 MG TAB PO SCH (08:45)
[2020-11-26] MEDS: PANTOPRAZOLE SOD 40 MG TABEC PO SCH (08:45)
[2020-11-26] MEDS: CLOPIDOGREL BISULFATE 75 MG TAB PO SCH (08:45)
[2020-11-26 08:48] VITALS: BP 126/64
[2020-11-26] MEDS ORDERED: ONDANSETRON HCL 4 MG ORAL DISINTEGRATING TAB PO PRN (11:15)
[2020-11-26 11:53] VITALS: BP 126/60
[2020-11-26] MEDS ORDERED: CARAFATE1 GM PO (12:18)
== END 2020-11-26 15:04 | disposition home or self-care (01) | DRG 177 ==
LOC: ER 16:20 → ERHOLD 16:32 → IMCU 11-12 04:48 → COVIDICU 11-12 20:32 → IMCU 11-13 20:28 → MED/SURG3 11-14 21:33 → IMCU 11-15 18:08
PROVIDERS: ADMIT Internal Medicine; ATTEND Internal Medicine
PROC: 8E0ZXY6 Isolation (ICD-10-PCS; principal; 2020-11-10)
PROC: 02HV33Z Insertion of Infusion Device into Superior Vena Cava, Percutaneous Approach (ICD-10-PCS; 2020-11-12)
PROC: XW033E5 Introduction of Remdesivir Anti-infective into Peripheral Vein, Percutaneous Approach, New Technology Group 5 (ICD-10-PCS; 2020-11-12)
DX: U07.1 COVID-19 (principal); J12.82 Pneumonia due to coronavirus disease 2019; J96.21 Acute and chronic respiratory failure with hypoxia; J44.1 Chronic obstructive pulmonary disease with (acute) exacerbation; E11.9 Type 2 diabetes mellitus without complications; I10 Essential (primary) hypertension; E78.5 Hyperlipidemia, unspecified; I25.10 Atherosclerotic heart disease of native coronary artery without angina pectoris; Z95.5 Presence of coronary angioplasty implant and graft; R31.9 Hematuria, unspecified; E83.51 Hypocalcemia; E66.9 Obesity, unspecified; Z68.34 Body mass index [BMI] 34.0-34.9, adult; D69.6 Thrombocytopenia, unspecified; Z66 Do not resuscitate; E78.00 Pure hypercholesterolemia, unspecified
CPT/HCPCS: 36415; 36569; 71045; 80053; 82550; 82553; 82948; 83036; 83735; 84100; 84443; 84484; 85025; 87070; 87205; 94660; 94664; 96372; 97139; 99251; 99284; J0456; J0696; J1100; J1650; J1815; J1817; J2405; J2920; J2930; J7050; U0002

== ENCOUNTER → 2021-10-12 | Outpatient (CLI) | payer MEDICARE, OTHER ==
[~2021-10-12] MED LIST changes: +ATROVENT HFA12.9 GM INH; +CARAFATE1 GM PO
== END ==
LOC: CT 11:33
PROVIDERS: ATTEND Internal Medicine
DX: J44.9 Chronic obstructive pulmonary disease, unspecified (principal)
CPT/HCPCS: 71250

== ENCOUNTER 2021-11-12 14:35 | Inpatient (IN) | payer MEDICARE, OTHER ==
[~2021-11-12] VITALS: Ht 160 cm; Wt 87.5 kg
[2021-11-12 15:15] LABS: BASOPHILS # (AUTO) 0.1 (0.0-0.1); BASOPHILS % 0.5 % (0.0-1.0); EOSINOPHILS % 0.2 % (0.0-6.0); HEMATOCRIT 42.4 % (38.2-49.6); HEMOGLOBIN 13.3 g/dL (14.0-18.0); LYMPHOCYTES # (AUTO) 1.7 (1.0-3.2); LYMPHOCYTES % 11.3 % (18.0-39.1); MEAN CORPUSCULAR HEMOGLOBIN 29.6 pg (28-32); MEAN CORPUSCULAR HGB CONC 31.4 g/dL (31-35); MEAN CORPUSCULAR VOLUME 94.4 fL (81-99); MONOCYTES # (AUTO) 1.1 (0.2-0.8); MONOCYTES % 7.2 % (4.4-11.3); NEUTROPHILS # (AUTO) 11.7 (2.1-6.9); NEUTROPHILS % 79.8 % (38.7-80.0); PLATELET COUNT 299 x10e3/uL (140-360); RED BLOOD COUNT 4.49 x10e6/uL (4.3-5.7); RED CELL DISTRIBUTION WIDTH 13.7 % (11.7-14.4)
[2021-11-12 15:27] LABS: INR 0.96; PROTHROMBIN TIME 13.5 seconds (11.9-14.5)
[2021-11-12 15:34] LABS: ALBUMIN 3.2 g/dL (3.5-5.0); ANION GAP 15.1 mmol/L (8-16); CALCIUM 8.7 mg/dL (8.4-10.2); CREATININE, SERUM 0.83 mg/dL (0.72-1.25); POTASSIUM 4.1 mmol/L (3.5-5.1)
[2021-11-12 15:41] LABS: CREATINE KINASE MB 2.5 ng/mL (0-5.0)
[2021-11-12] MEDS: SODIUM CHLORIDE 0.9% 1000ML 1,000 ML IV SCH ×2 (16:07→23:30)
[2021-11-12 18:27] LABS: CREATINE KINASE MB 2.1 ng/mL (0-5.0)
[2021-11-12] MEDS ORDERED: SODIUM CHLORIDE 0.9% 50ML 50 ML ONE (19:16)
[2021-11-12] MEDS ORDERED: IOPAMIDOL 370 MG/ML 200 ML INFUS..BTL INJ ONE (19:16)
[2021-11-12 20:00] VITALS: BP 135/69
[2021-11-12 21:34] VITALS: BP 135/69
[2021-11-12] MEDS ORDERED: BISACODYL 5 MG TAB EC PO ONE ×2 (23:00→23:30)
[2021-11-12 23:37] LABS: CREATINE KINASE MB 2.3 ng/mL (0-5.0)
[2021-11-13] VITALS (7 sets, daily range): BP systolic 100–149; BP diastolic 47–83
[2021-11-13] MEDS: ALBUTEROL/IPRATROPIUM 3 ML NEB NEB PRN ×3 (04:32→11:44)
[2021-11-13] MEDS ORDERED: CITRATE OF MAGNESIA 300ML BOTTLE PO ONE ×2 (05:00→07:00)
[2021-11-13] MEDS: SODIUM CHLORIDE 0.9% 1000ML 1,000 ML IV SCH ×3 (05:10→22:02)
[2021-11-13 05:12] LABS: BASOPHILS # (AUTO) 0.1 (0.0-0.1); BASOPHILS % 0.8 % (0.0-1.0); EOSINOPHILS % 0.2 % (0.0-6.0); HEMOGLOBIN 9.7 g/dL (14.0-18.0); LYMPHOCYTES # (AUTO) 2.6 (1.0-3.2); LYMPHOCYTES % 19.8 % (18.0-39.1); MEAN CORPUSCULAR HGB CONC 31.3 g/dL (31-35); MONOCYTES # (AUTO) 1.3 (0.2-0.8); MONOCYTES % 9.9 % (4.4-11.3); NEUTROPHILS # (AUTO) 8.8 (2.1-6.9); NEUTROPHILS % 68.2 % (38.7-80.0); PLATELET COUNT 231 x10e3/uL (140-360); RED BLOOD COUNT 3.23 x10e6/uL (4.3-5.7); RED CELL DISTRIBUTION WIDTH 13.5 % (11.7-14.4)
[2021-11-13 05:44] LABS: ALBUMIN 2.7 g/dL (3.5-5.0); ALBUMIN/GLOBULIN RATIO 1.2 (0.8-2.0); ANION GAP 13.7 mmol/L (8-16); CALCIUM 7.8 mg/dL (8.4-10.2); CREATININE, SERUM 0.76 mg/dL (0.72-1.25); POTASSIUM 3.7 mmol/L (3.5-5.1)
[2021-11-13] MEDS: BUDESONIDE 0.5MG/2 ML NEB NEB SCH ×3 (07:12→18:30)
[2021-11-13] MEDS: SUCRALFATE 1 GM TAB PO SCH ×3 (07:30→16:30)
[2021-11-13 08:21] LABS: CREATINE KINASE MB 2.7 ng/mL (0-5.0)
[2021-11-13] MEDS: DULOXETINE HCL 20 MG DELAYED RELEASE PO SCH (08:33)
[2021-11-13] MEDS: PREDNISONE 5 MG TAB PO SCH (08:33)
[2021-11-13] MEDS: METFORMIN HCL 500 MG TAB CR PO SCH ×2 (08:33→17:00)
[2021-11-13] MEDS: SIMVASTATIN 40 MG TAB PO SCH (08:34)
[2021-11-13] MEDS: PANTOPRAZOLE SOD 40 MG TABEC PO SCH (08:34)
[2021-11-13] MEDS: MONTELUKAST SODIUM 10 MG TAB PO SCH (08:34)
[2021-11-13] MEDS: FLUTICASONE PROPIONATE NASAL SPRAY NS SCH ×2 (09:25→17:00)
[2021-11-13] MEDS ORDERED: HYOSCYAMINE SULFATE 0.5 MG/ML INJ ONE (12:37)
[2021-11-13] MEDS ORDERED: GLUCAGON FOR INJ 1 MG VIAL ONE (12:37)
[2021-11-13] MEDS ORDERED: PROPOFOL IV EMULSION 10 MG/ML 20 ML VIAL ONE (12:37)
[2021-11-13] MEDS ORDERED: MIDAZOLAM HCL 2 MG/2 ML VIAL ONE (12:57)
[2021-11-13] MEDS ORDERED: FENTANYL CITRATE/PF 100MCG/2 ML INJ ONE (12:57)
[2021-11-13] MEDS: ALBUTEROL SULFATE HFA 8GM INHALATION AEROSOL INH PRN (18:25)
[2021-11-13] MEDS: LEVOFLOXACIN 500MG/D5W 100ML 100 ML IV SCH (18:38)
[2021-11-13] MEDS: METRONIDAZOLE 500MG/NS 100ML 100 ML IV SCH (22:02)
[2021-11-13] MEDS: ZOLPIDEM TARTRATE 10 MG TAB PO PRN (22:03)
[2021-11-14] VITALS (7 sets, daily range): BP systolic 106–154; BP diastolic 42–88
[2021-11-14] MEDS: ALBUTEROL SULFATE HFA 8GM INHALATION AEROSOL INH PRN (04:35)
[2021-11-14] MEDS: METRONIDAZOLE 500MG/NS 100ML 100 ML IV SCH ×3 (05:40→22:42)
[2021-11-14] MEDS: ALBUTEROL/IPRATROPIUM 3 ML NEB NEB PRN ×5 (07:10→22:00)
[2021-11-14] MEDS: BUDESONIDE 0.5MG/2 ML NEB NEB SCH (07:10)
[2021-11-14 08:34] LABS: BASOPHILS # (AUTO) 0.1 (0.0-0.1); BASOPHILS % 0.7 % (0.0-1.0); EOSINOPHILS # (AUTO) 0.1 (0.0-0.4); EOSINOPHILS % 0.3 % (0.0-6.0); HEMATOCRIT 26.1 % (38.2-49.6); LYMPHOCYTES # (AUTO) 2.3 (1.0-3.2); LYMPHOCYTES % 15.5 % (18.0-39.1); MEAN CORPUSCULAR HGB CONC 30.7 g/dL (31-35); MEAN CORPUSCULAR VOLUME 97.8 fL (81-99); MONOCYTES # (AUTO) 1.1 (0.2-0.8); MONOCYTES % 7.5 % (4.4-11.3); NEUTROPHILS # (AUTO) 11.2 (2.1-6.9); NEUTROPHILS % 75.1 % (38.7-80.0); PLATELET COUNT 204 x10e3/uL (140-360); RED BLOOD COUNT 2.67 x10e6/uL (4.3-5.7); RED CELL DISTRIBUTION WIDTH 13.6 % (11.7-14.4)
[2021-11-14] MEDS: COLLAGENASE 5 GM TUBE TOP SCH (09:00)
[2021-11-14] MEDS: FLUTICASONE PROPIONATE NASAL SPRAY NS SCH ×2 (09:46→15:43)
[2021-11-14] MEDS: SUCRALFATE 1 GM TAB PO SCH ×3 (09:49→16:53)
[2021-11-14] MEDS: DULOXETINE HCL 20 MG DELAYED RELEASE PO SCH (09:49)
[2021-11-14] MEDS: METFORMIN HCL 500 MG TAB CR PO SCH ×2 (09:49→16:53)
[2021-11-14] MEDS: PANTOPRAZOLE SOD 40 MG TABEC PO SCH (09:50)
[2021-11-14] MEDS: SIMVASTATIN 40 MG TAB PO SCH (09:50)
[2021-11-14] MEDS: MONTELUKAST SODIUM 10 MG TAB PO SCH (09:50)
[2021-11-14] MEDS: PREDNISONE 5 MG TAB PO SCH (09:50)
[2021-11-14] MEDS: LEVOFLOXACIN 500MG/D5W 100ML 100 ML IV SCH (17:54)
[2021-11-15] VITALS (8 sets, daily range): BP systolic 110–139; BP diastolic 52–71
[2021-11-15] MEDS: METRONIDAZOLE 500MG/NS 100ML 100 ML IV SCH ×3 (06:02→21:24)
[2021-11-15 07:44] LABS: BASOPHILS # (AUTO) 0.1 (0.0-0.1); BASOPHILS % 0.3 % (0.0-1.0); EOSINOPHILS % 0.1 % (0.0-6.0); HEMATOCRIT 23.7 % (38.2-49.6); HEMOGLOBIN 7.2 g/dL (14.0-18.0); LYMPHOCYTES # (AUTO) 1.5 (1.0-3.2); LYMPHOCYTES % 10.3 % (18.0-39.1); MEAN CORPUSCULAR HEMOGLOBIN 29.3 pg (28-32); MEAN CORPUSCULAR HGB CONC 30.4 g/dL (31-35); MEAN CORPUSCULAR VOLUME 96.3 fL (81-99); MONOCYTES # (AUTO) 1.2 (0.2-0.8); MONOCYTES % 8.2 % (4.4-11.3); NEUTROPHILS # (AUTO) 11.5 (2.1-6.9); NEUTROPHILS % 80.2 % (38.7-80.0); PLATELET COUNT 241 x10e3/uL (140-360); RED BLOOD COUNT 2.46 x10e6/uL (4.3-5.7); RED CELL DISTRIBUTION WIDTH 13.5 % (11.7-14.4)
[2021-11-15] MEDS: BUDESONIDE 0.5MG/2 ML NEB NEB SCH ×2 (07:54→20:15)
[2021-11-15] MEDS: ALBUTEROL/IPRATROPIUM 3 ML NEB NEB PRN ×3 (07:55→20:15)
[2021-11-15 08:13] LABS: ALANINE AMINOTRANSFERASE 19 IU/L (0-55); ALBUMIN 2.5 g/dL (3.5-5.0); ALBUMIN/GLOBULIN RATIO 1.2 (0.8-2.0); ALKALINE PHOSPHATASE 37 IU/L (40-150); ANION GAP 13.1 mmol/L (8-16); BLOOD UREA NITROGEN < 5 mg/dL (7-26); CALCIUM 7.6 mg/dL (8.4-10.2); CARBON DIOXIDE 25 mmol/L (22-29); CHLORIDE 106 mmol/L (98-107); EST GLOMERULAR FILTRATION RATE 110 ML/MIN (60-); GLUCOSE 132 mg/dL (74-118); POTASSIUM 3.1 mmol/L (3.5-5.1); SODIUM 141 mmol/L (136-145)
[2021-11-15 08:14] LABS: BUN/CREATININE RATIO 7 (6-25)
[2021-11-15] MEDS: FLUTICASONE PROPIONATE NASAL SPRAY NS SCH ×2 (08:32→16:31)
[2021-11-15 08:44] LABS: % IRON SATURATION 8 % (15-50); IRON 22 ug/dL (65-175); TOTAL IRON BINDING CAPACITY 269 ug/dL (261-478); TRANSFERRIN 192 mg/dL (174-364)
[2021-11-15] MEDS: DULOXETINE HCL 20 MG DELAYED RELEASE PO SCH (09:00)
[2021-11-15] MEDS: COLLAGENASE 5 GM TUBE TOP SCH (09:00)
[2021-11-15] MEDS ORDERED: IRON SUCROSE 100 MG in SODIUM CHLORIDE 0.9% 100 ML 100 ML IV SCH (11:00)
[2021-11-15] MEDS: PANTOPRAZOLE SOD 40 MG TABEC PO SCH (11:22)
[2021-11-15] MEDS: MONTELUKAST SODIUM 10 MG TAB PO SCH (11:22)
[2021-11-15] MEDS: PREDNISONE 5 MG TAB PO SCH (11:22)
[2021-11-15] MEDS: METFORMIN HCL 500 MG TAB CR PO SCH ×2 (11:22→17:54)
[2021-11-15] MEDS: SIMVASTATIN 40 MG TAB PO SCH (11:23)
[2021-11-15] MEDS: SUCRALFATE 1 GM TAB PO SCH ×3 (11:30→17:54)
[2021-11-15] MEDS: LEVOFLOXACIN 500MG/D5W 100ML 100 ML IV SCH (18:42)
[2021-11-15] MEDS: ZOLPIDEM TARTRATE 10 MG TAB PO PRN (21:24)
[2021-11-16] VITALS (8 sets, daily range): BP systolic 98–156; BP diastolic 46–76
[2021-11-16] MEDS: METRONIDAZOLE 500MG/NS 100ML 100 ML IV SCH ×2 (05:40→14:00)
[2021-11-16 05:51] LABS: BASOPHILS % 0.3 % (0.0-1.0); EOSINOPHILS % 0.1 % (0.0-6.0); HEMATOCRIT 25.2 % (38.2-49.6); LYMPHOCYTES # (AUTO) 1.9 (1.0-3.2); LYMPHOCYTES % 13.2 % (18.0-39.1); MEAN CORPUSCULAR HEMOGLOBIN 29.7 pg (28-32); MEAN CORPUSCULAR HGB CONC 31.7 g/dL (31-35); MEAN CORPUSCULAR VOLUME 93.7 fL (81-99); MONOCYTES # (AUTO) 1.2 (0.2-0.8); MONOCYTES % 8.1 % (4.4-11.3); NEUTROPHILS % 77.2 % (38.7-80.0); PLATELET COUNT 284 x10e3/uL (140-360); RED BLOOD COUNT 2.69 x10e6/uL (4.3-5.7); RED CELL DISTRIBUTION WIDTH 13.6 % (11.7-14.4)
[2021-11-16 06:10] LABS: ALANINE AMINOTRANSFERASE 20 IU/L (0-55); ALBUMIN 2.7 g/dL (3.5-5.0); ALKALINE PHOSPHATASE 43 IU/L (40-150); ANION GAP 14.3 mmol/L (8-16); CALCIUM 8.5 mg/dL (8.4-10.2); CARBON DIOXIDE 27 mmol/L (22-29); CHLORIDE 103 mmol/L (98-107); CREATININE, SERUM 0.68 mg/dL (0.72-1.25); EST GLOMERULAR FILTRATION RATE 113 ML/MIN (60-); GLUCOSE 113 mg/dL (74-118); MAGNESIUM 1.7 MG/DL (1.3-2.1); POTASSIUM 3.3 mmol/L (3.5-5.1); SODIUM 141 mmol/L (136-145)
[2021-11-16 06:13] LABS: BUN/CREATININE RATIO 7 (6-25)
[2021-11-16 06:26] LABS: BLOOD UREA NITROGEN < 5 mg/dL (7-26)
[2021-11-16] MEDS: SUCRALFATE 1 GM TAB PO SCH ×3 (07:30→16:30)
[2021-11-16] MEDS: PREDNISONE 5 MG TAB PO SCH (09:00)
[2021-11-16] MEDS: COLLAGENASE 5 GM TUBE TOP SCH (09:00)
[2021-11-16] MEDS: PANTOPRAZOLE SOD 40 MG TABEC PO SCH (09:00)
[2021-11-16] MEDS: DULOXETINE HCL 20 MG DELAYED RELEASE PO SCH ×2 (09:00→22:01)
[2021-11-16] MEDS: FLUTICASONE PROPIONATE NASAL SPRAY NS SCH ×2 (09:00→17:00)
[2021-11-16] MEDS: METFORMIN HCL 500 MG TAB CR PO SCH ×2 (09:00→16:47)
[2021-11-16] MEDS: MONTELUKAST SODIUM 10 MG TAB PO SCH (09:00)
[2021-11-16] MEDS: ALBUTEROL/IPRATROPIUM 3 ML NEB NEB PRN ×3 (09:50→20:10)
[2021-11-16] MEDS: BUDESONIDE 0.5MG/2 ML NEB NEB SCH ×2 (09:50→20:08)
[2021-11-16] MEDS: IRON SUCROSE 100 MG in SODIUM CHLORIDE 0.9% 100 ML 100 ML IV SCH (13:45)
[2021-11-16] MEDS: LEVOFLOXACIN 500MG/D5W 100ML 100 ML IV SCH (18:11)
[2021-11-16] MEDS: SIMVASTATIN 40 MG TAB PO SCH (22:01)
[2021-11-16] MEDS: ZOLPIDEM TARTRATE 10 MG TAB PO PRN (22:02)
[2021-11-17] VITALS (8 sets, daily range): BP systolic 95–140; BP diastolic 45–70
[2021-11-17] MEDS: ALBUTEROL/IPRATROPIUM 3 ML NEB NEB PRN (03:15)
[2021-11-17 06:21] LABS: BASOPHILS # (AUTO) 0.1 (0.0-0.1); BASOPHILS % 0.5 % (0.0-1.0); EOSINOPHILS # (AUTO) 0.1 (0.0-0.4); EOSINOPHILS % 0.4 % (0.0-6.0); HEMOGLOBIN 8.2 g/dL (14.0-18.0); LYMPHOCYTES # (AUTO) 1.9 (1.0-3.2); LYMPHOCYTES % 14.2 % (18.0-39.1); MEAN CORPUSCULAR HEMOGLOBIN 30.1 pg (28-32); MEAN CORPUSCULAR HGB CONC 31.5 g/dL (31-35); MEAN CORPUSCULAR VOLUME 95.6 fL (81-99); MONOCYTES # (AUTO) 1.2 (0.2-0.8); MONOCYTES % 8.8 % (4.4-11.3); NEUTROPHILS # (AUTO) 10.2 (2.1-6.9); NEUTROPHILS % 74.5 % (38.7-80.0); PLATELET COUNT 303 x10e3/uL (140-360); RED BLOOD COUNT 2.72 x10e6/uL (4.3-5.7)
[2021-11-17] MEDS: METRONIDAZOLE 500MG/NS 100ML 100 ML IV SCH ×4 (06:47→18:30)
[2021-11-17 06:51] LABS: ALANINE AMINOTRANSFERASE 20 IU/L (0-55); ALBUMIN 2.7 g/dL (3.5-5.0); ALKALINE PHOSPHATASE 39 IU/L (40-150); ANION GAP 12.3 mmol/L (8-16); BLOOD UREA NITROGEN < 5 mg/dL (7-26); CALCIUM 8.2 mg/dL (8.4-10.2); CARBON DIOXIDE 28 mmol/L (22-29); CHLORIDE 102 mmol/L (98-107); CREATININE, SERUM 0.68 mg/dL (0.72-1.25); EST GLOMERULAR FILTRATION RATE 113 ML/MIN (60-); GLUCOSE 125 mg/dL (74-118); MAGNESIUM 1.4 MG/DL (1.3-2.1); POTASSIUM 3.3 mmol/L (3.5-5.1); SODIUM 139 mmol/L (136-145)
[2021-11-17 06:53] LABS: BUN/CREATININE RATIO 7 (6-25)
[2021-11-17] MEDS: Morphine 2mg Syringe 2 MG/ML SYR IV PRN (07:27)
[2021-11-17] MEDS: PREDNISONE 5 MG TAB PO SCH (08:48)
[2021-11-17] MEDS: FLUTICASONE PROPIONATE NASAL SPRAY NS SCH ×3 (08:48→16:18)
[2021-11-17] MEDS: SUCRALFATE 1 GM TAB PO SCH ×3 (08:48→16:18)
[2021-11-17] MEDS: METFORMIN HCL 500 MG TAB CR PO SCH ×2 (08:48→16:18)
[2021-11-17] MEDS: PANTOPRAZOLE SOD 40 MG TABEC PO SCH (08:49)
[2021-11-17] MEDS: MONTELUKAST SODIUM 10 MG TAB PO SCH (08:49)
[2021-11-17] MEDS: BUDESONIDE 0.5MG/2 ML NEB NEB SCH ×2 (09:00→19:10)
[2021-11-17] MEDS: COLLAGENASE 5 GM TUBE TOP SCH ×2 (09:00)
[2021-11-17] MEDS: IRON SUCROSE 100 MG in SODIUM CHLORIDE 0.9% 100 ML 100 ML IV SCH (13:22)
[2021-11-17] MEDS: LEVOFLOXACIN 500MG/D5W 100ML 100 ML IV SCH (17:00)
[2021-11-17] MEDS: SIMVASTATIN 40 MG TAB PO SCH (21:05)
[2021-11-17] MEDS: ZOLPIDEM TARTRATE 10 MG TAB PO PRN (21:47)
[2021-11-17] MEDS: DULOXETINE HCL 20 MG DELAYED RELEASE PO SCH (21:47)
[2021-11-18] VITALS (8 sets, daily range): BP systolic 119–142; BP diastolic 60–75
[2021-11-18] MEDS: METRONIDAZOLE 500MG/NS 100ML 100 ML IV SCH ×4 (00:40→17:12)
[2021-11-18] MEDS: Morphine 2mg Syringe 2 MG/ML SYR IV PRN (00:58)
[2021-11-18 05:31] LABS: BASOPHILS # (AUTO) 0.1 (0.0-0.1); BASOPHILS % 0.4 % (0.0-1.0); EOSINOPHILS # (AUTO) 0.1 (0.0-0.4); EOSINOPHILS % 0.7 % (0.0-6.0); HEMATOCRIT 24.4 % (38.2-49.6); HEMOGLOBIN 7.7 g/dL (14.0-18.0); LYMPHOCYTES # (AUTO) 1.7 (1.0-3.2); LYMPHOCYTES % 14.7 % (18.0-39.1); MEAN CORPUSCULAR HEMOGLOBIN 30.3 pg (28-32); MEAN CORPUSCULAR HGB CONC 31.6 g/dL (31-35); MEAN CORPUSCULAR VOLUME 96.1 fL (81-99); MONOCYTES # (AUTO) 1.2 (0.2-0.8); MONOCYTES % 10.5 % (4.4-11.3); NEUTROPHILS # (AUTO) 8.2 (2.1-6.9); NEUTROPHILS % 71.4 % (38.7-80.0); PLATELET COUNT 370 x10e3/uL (140-360); RED BLOOD COUNT 2.54 x10e6/uL (4.3-5.7); RED CELL DISTRIBUTION WIDTH 14.2 % (11.7-14.4)
[2021-11-18 06:03] LABS: ALANINE AMINOTRANSFERASE 19 IU/L (0-55); ALBUMIN 2.4 g/dL (3.5-5.0); ALKALINE PHOSPHATASE 32 IU/L (40-150); ANION GAP 10.3 mmol/L (8-16); BLOOD UREA NITROGEN < 5 mg/dL (7-26); CARBON DIOXIDE 34 mmol/L (22-29); CHLORIDE 100 mmol/L (98-107); CREATININE, SERUM 0.67 mg/dL (0.72-1.25); EST GLOMERULAR FILTRATION RATE 115 ML/MIN (60-); GLUCOSE 115 mg/dL (74-118); MAGNESIUM 1.3 MG/DL (1.3-2.1); POTASSIUM 3.3 mmol/L (3.5-5.1); SODIUM 141 mmol/L (136-145)
[2021-11-18 06:05] LABS: BUN/CREATININE RATIO 7 (6-25)
[2021-11-18] MEDS: BUDESONIDE 0.5MG/2 ML NEB NEB SCH ×2 (07:10→17:00)
[2021-11-18] MEDS: SUCRALFATE 1 GM TAB PO SCH ×3 (07:57→16:42)
[2021-11-18] MEDS: PREDNISONE 5 MG TAB PO SCH (09:00)
[2021-11-18] MEDS: MONTELUKAST SODIUM 10 MG TAB PO SCH (09:00)
[2021-11-18] MEDS: METFORMIN HCL 500 MG TAB CR PO SCH ×2 (09:00→16:48)
[2021-11-18] MEDS: FLUTICASONE PROPIONATE NASAL SPRAY NS SCH ×2 (09:00→16:48)
[2021-11-18] MEDS: COLLAGENASE 5 GM TUBE TOP SCH ×2 (09:00)
[2021-11-18] MEDS: PANTOPRAZOLE SOD 40 MG TABEC PO SCH (10:32)
[2021-11-18] MEDS: IRON SUCROSE 100 MG in SODIUM CHLORIDE 0.9% 100 ML 100 ML IV SCH (13:11)
[2021-11-18] MEDS: ALBUTEROL/IPRATROPIUM 3 ML NEB NEB PRN (17:00)
[2021-11-18] MEDS ORDERED: LEVOFLOXACIN 500 MG TAB PO SCH (17:00)
[2021-11-18] MEDS: LEVOFLOXACIN 500MG/D5W 100ML 100 ML IV SCH (17:57)
[2021-11-18] MEDS: ZOLPIDEM TARTRATE 10 MG TAB PO PRN (21:49)
[2021-11-18] MEDS: SIMVASTATIN 40 MG TAB PO SCH (21:49)
[2021-11-18] MEDS: DULOXETINE HCL 20 MG DELAYED RELEASE PO SCH (21:49)
[2021-11-19] VITALS (8 sets, daily range): BP systolic 108–137; BP diastolic 59–89
[2021-11-19] MEDS: METRONIDAZOLE 500MG/NS 100ML 100 ML IV SCH ×4 (00:49→17:02)
[2021-11-19] MEDS: ALBUTEROL/IPRATROPIUM 3 ML NEB NEB PRN (01:06)
[2021-11-19] MEDS: Morphine 2mg Syringe 2 MG/ML SYR IV PRN (02:00)
[2021-11-19] MEDS ORDERED: MAGNESIUM SULFATE 2GM/50ML 50 ML IV ONE (03:45)
[2021-11-19 05:56] LABS: BASOPHILS # (AUTO) 0.1 (0.0-0.1); BASOPHILS % 0.5 % (0.0-1.0); EOSINOPHILS % 0.3 % (0.0-6.0); HEMATOCRIT 27.2 % (38.2-49.6); HEMOGLOBIN 8.2 g/dL (14.0-18.0); LYMPHOCYTES # (AUTO) 1.8 (1.0-3.2); LYMPHOCYTES % 14.8 % (18.0-39.1); MEAN CORPUSCULAR HEMOGLOBIN 29.6 pg (28-32); MEAN CORPUSCULAR HGB CONC 30.1 g/dL (31-35); MEAN CORPUSCULAR VOLUME 98.2 fL (81-99); MONOCYTES # (AUTO) 1.3 (0.2-0.8); MONOCYTES % 10.5 % (4.4-11.3); NEUTROPHILS # (AUTO) 8.7 (2.1-6.9); NEUTROPHILS % 72.3 % (38.7-80.0); PLATELET COUNT 156 x10e3/uL (140-360); RED BLOOD COUNT 2.77 x10e6/uL (4.3-5.7); RED CELL DISTRIBUTION WIDTH 14.4 % (11.7-14.4); RETICULOCYTE % 5.1 % (0.8-2.2)
[2021-11-19 06:05] LABS: ALANINE AMINOTRANSFERASE 20 IU/L (0-55); ALBUMIN 2.5 g/dL (3.5-5.0); ALBUMIN/GLOBULIN RATIO 0.9 (0.8-2.0); ANION GAP 13.2 mmol/L (8-16); BLOOD UREA NITROGEN < 5 mg/dL (7-26); CALCIUM 8.2 mg/dL (8.4-10.2); CARBON DIOXIDE 30 mmol/L (22-29); CHLORIDE 100 mmol/L (98-107); CREATININE, SERUM 0.67 mg/dL (0.72-1.25); EST GLOMERULAR FILTRATION RATE 115 ML/MIN (60-); GLUCOSE 132 mg/dL (74-118); POTASSIUM 3.2 mmol/L (3.5-5.1); SODIUM 140 mmol/L (136-145)
[2021-11-19 06:11] LABS: BUN/CREATININE RATIO 7 (6-25)
[2021-11-19 06:32] LABS: ALKALINE PHOSPHATASE 37 IU/L (40-150)
[2021-11-19] MEDS: BUDESONIDE 0.5MG/2 ML NEB NEB SCH ×2 (06:51→19:30)
[2021-11-19] MEDS: COLLAGENASE 5 GM TUBE TOP SCH ×2 (09:00→09:54)
[2021-11-19] MEDS: FLUTICASONE PROPIONATE NASAL SPRAY NS SCH ×2 (09:40→16:59)
[2021-11-19] MEDS: SUCRALFATE 1 GM TAB PO SCH ×3 (09:53→17:02)
[2021-11-19] MEDS: METFORMIN HCL 500 MG TAB CR PO SCH ×2 (09:53→17:02)
[2021-11-19] MEDS: PREDNISONE 5 MG TAB PO SCH (09:53)
[2021-11-19] MEDS: PANTOPRAZOLE SOD 40 MG TABEC PO SCH (09:54)
[2021-11-19] MEDS: MONTELUKAST SODIUM 10 MG TAB PO SCH (09:54)
[2021-11-19] MEDS ORDERED: POTASSIUM CHLORIDE 20 MEQ TAB CR PO ONE (11:00)
[2021-11-19] MEDS: IRON SUCROSE 100 MG in SODIUM CHLORIDE 0.9% 100 ML 100 ML IV SCH (15:02)
[2021-11-19] MEDS: LEVOFLOXACIN 500MG/D5W 100ML 100 ML IV SCH (18:22)
[2021-11-19] MEDS: SIMVASTATIN 40 MG TAB PO SCH (20:25)
[2021-11-19] MEDS: DULOXETINE HCL 20 MG DELAYED RELEASE PO SCH (20:25)
[2021-11-19] MEDS: METRONIDAZOLE 500 MG TAB PO SCH (23:36)
[2021-11-19] MEDS: ZOLPIDEM TARTRATE 10 MG TAB PO PRN (23:40)
[2021-11-20 00:10] VITALS: BP 133/95
[2021-11-20] MEDS: ALBUTEROL/IPRATROPIUM 3 ML NEB NEB PRN ×2 (01:50→08:04)
[2021-11-20 04:00] VITALS: BP 115/67
[2021-11-20] MEDS: Morphine 2mg Syringe 2 MG/ML SYR IV PRN (04:15)
[2021-11-20] MEDS: METRONIDAZOLE 500 MG TAB PO SCH (06:01)
[2021-11-20 08:00] VITALS: BP 125/69
[2021-11-20] MEDS: BUDESONIDE 0.5MG/2 ML NEB NEB SCH (08:04)
[2021-11-20 08:16] VITALS: BP 125/69
[2021-11-20] MEDS: PANTOPRAZOLE SOD 40 MG TABEC PO SCH (08:18)
[2021-11-20] MEDS: METFORMIN HCL 500 MG TAB CR PO SCH (08:18)
[2021-11-20] MEDS: SUCRALFATE 1 GM TAB PO SCH (08:18)
[2021-11-20] MEDS: PREDNISONE 5 MG TAB PO SCH (08:19)
[2021-11-20] MEDS: MONTELUKAST SODIUM 10 MG TAB PO SCH (08:19)
[2021-11-20] MEDS: FLUTICASONE PROPIONATE NASAL SPRAY NS SCH (08:21)
[2021-11-20] MEDS: COLLAGENASE 5 GM TUBE TOP SCH ×2 (08:25)
[2021-11-20] MEDS ORDERED: LEVOFLOXACIN 500 MG TAB PO SCH (17:00)
== END 2021-11-20 08:54 | disposition home or self-care (01) | DRG 378 ==
LOC: ER 15:07 → ERHOLD 15:30 → MED/SURG 19:00
PROVIDERS: ADMIT Internal Medicine; ATTEND Internal Medicine
PROC: 0DBM8ZZ Excision of Descending Colon, Via Natural or Artificial Opening Endoscopic (ICD-10-PCS; 2021-11-13)
PROC: 0W3P8ZZ Control Bleeding in Gastrointestinal Tract, Via Natural or Artificial Opening Endoscopic (ICD-10-PCS; 2021-11-13)
PROC: 0DBH8ZZ Excision of Cecum, Via Natural or Artificial Opening Endoscopic (ICD-10-PCS; principal; 2021-11-13 15:00)
DX: K57.33 Diverticulitis of large intestine without perforation or abscess with bleeding (principal); M87.852 Other osteonecrosis, left femur; J96.11 Chronic respiratory failure with hypoxia; D64.9 Anemia, unspecified; J44.9 Chronic obstructive pulmonary disease, unspecified; Z99.81 Dependence on supplemental oxygen; E78.5 Hyperlipidemia, unspecified; I25.10 Atherosclerotic heart disease of native coronary artery without angina pectoris; E11.9 Type 2 diabetes mellitus without complications; E66.9 Obesity, unspecified; Z68.34 Body mass index [BMI] 34.0-34.9, adult; E78.00 Pure hypercholesterolemia, unspecified; K21.00 Gastro-esophageal reflux disease with esophagitis, without bleeding; D12.0 Benign neoplasm of cecum; D12.4 Benign neoplasm of descending colon; K64.8 Other hemorrhoids; I71.4 Abdominal aortic aneurysm, without rupture; I10 Essential (primary) hypertension
CPT/HCPCS: 36415; 45378; 74174; 80053; 82550; 82553; 82607; 82746; 82948; 83540; 83735; 84466; 84484; 85025; 85045; 85610; 86850; 86900; 88305; 93005; 94640; 94664; 94799; 99251; 99284; J1610; J1756; J1956; J1980; J2250; J2270; J3010; J3475; J7030; J7512; Q9967; U0002

== ENCOUNTER 2022-03-11 10:29 | Inpatient (IN) | payer MEDICARE, OTHER ==
[~2022-03-11] VITALS: Ht 312.4 cm; Wt 87.5 kg
[2022-03-11 11:31] LABS: BASOPHILS % 0.4 % (0.0-1.0); EOSINOPHILS % 0.3 % (0.0-6.0); HEMATOCRIT 37.2 % (38.2-49.6); HEMOGLOBIN 11.2 g/dL (14.0-18.0); LYMPHOCYTES # (AUTO) 1.1 (1.0-3.2); MEAN CORPUSCULAR HEMOGLOBIN 25.6 pg (28-32); MEAN CORPUSCULAR HGB CONC 30.1 g/dL (31-35); MEAN CORPUSCULAR VOLUME 85.1 fL (81-99); MONOCYTES # (AUTO) 0.9 (0.2-0.8); MONOCYTES % 9.2 % (4.4-11.3); NEUTROPHILS # (AUTO) 7.2 (2.1-6.9); NEUTROPHILS % 77.1 % (38.7-80.0); PLATELET COUNT 288 x10e3/uL (140-360); RED BLOOD COUNT 4.37 x10e6/uL (4.3-5.7); RED CELL DISTRIBUTION WIDTH 17.6 % (11.7-14.4)
[2022-03-11] MEDS: SODIUM CHLORIDE 0.9% 1000ML 1,000 ML IV SCH ×2 (11:46→19:15)
[2022-03-11 11:55] LABS: ANION GAP 14.1 mmol/L (8-16); CALCIUM 8.2 mg/dL (8.4-10.2); CREATININE, SERUM 0.83 mg/dL (0.72-1.25); POTASSIUM 4.1 mmol/L (3.5-5.1)
[2022-03-11 11:56] LABS: AMYLASE 51 U/L (25-125); LIPASE 21 U/L (8-78)
[2022-03-11] MEDS ORDERED: SODIUM CHLORIDE 0.9% 100 ML ONE (12:25)
[2022-03-11] MEDS ORDERED: IOPAMIDOL 370 MG/ML 100 ML INFUS..BTL INJ ONE (12:25)
[2022-03-11 13:14] LABS: CLARITY,URINE CLEAR (CLEAR); COLOR,URINE YELLOW (YELLOW); LEUKOCYTE ESTERASE ,URINE NEGATIVE (NEGATIVE)
[2022-03-11 13:15] LABS: KETONES,URINE NEGATIVE (NEGATIVE); NITRITE,URINE NEGATIVE (NEGATIVE); PROTEIN,URINE DIPSTICK TRACE (NEGATIVE); URINE UROBILINOGEN 0.2 mg/dL (0.2 - 1)
[2022-03-11 13:25] LABS: BACTERIA,URINE FEW /HPF; EPITHELIAL CELLS,URINE FEW /LPF; WBC,URINE (MAN) 0-5 /HPF (0-5)
[2022-03-11] MEDS ORDERED: SODIUM CHLORIDE 0.9% 1000ML 1,000 ML IV SCH (14:45)
[2022-03-11 20:25] LABS: HEMATOCRIT 32.9 % (38.2-49.6); HEMOGLOBIN 9.9 g/dL (14.0-18.0)
[2022-03-11 22:15] VITALS: BP 145/59
[2022-03-11 23:18] VITALS: BP 147/72
[2022-03-11] MEDS: IPRATROPIUM BROMIDE INHALER 12.9 GM INH INH SCH (23:30)
[2022-03-12] VITALS (8 sets, daily range): BP systolic 133–156; BP diastolic 62–75
[2022-03-12] MEDS: ALBUTEROL/IPRATROPIUM 3 ML NEB INH SCH ×5 (00:10→19:20)
[2022-03-12] MEDS: ZOLPIDEM TARTRATE 10 MG TAB PO PRN ×2 (00:15→21:35)
[2022-03-12 00:54] LABS: HEMATOCRIT 34.4 % (38.2-49.6); HEMOGLOBIN 10.3 g/dL (14.0-18.0)
[2022-03-12] MEDS ORDERED: ALBUTEROL SULF 0.083% NEB SOLN 3 ML NEB INH SCH (02:00)
[2022-03-12] MEDS ORDERED: ALBUTEROL SULFATE HFA 8GM INHALATION AEROSOL INH SCH ×2 (02:00)
[2022-03-12] MEDS: SODIUM CHLORIDE 0.9% 1000ML 1,000 ML IV SCH ×3 (03:15→19:15)
[2022-03-12] MEDS: IPRATROPIUM BROMIDE INHALER 12.9 GM INH INH SCH (03:30)
[2022-03-12] MEDS: BUDESONIDE 0.5MG/2 ML NEB NEB SCH ×2 (06:55→19:20)
[2022-03-12] MEDS ORDERED: PANTOPRAZOLE SOD 40 MG TABEC PO SCH (07:30)
[2022-03-12] MEDS: SUCRALFATE 1 GM TAB PO SCH ×3 (08:00→17:00)
[2022-03-12 08:39] LABS: HEMATOCRIT 34.9 % (38.2-49.6); HEMOGLOBIN 10.3 g/dL (14.0-18.0)
[2022-03-12] MEDS: METFORMIN HCL 500 MG TAB CR PO SCH ×2 (09:00→17:00)
[2022-03-12] MEDS: FLUTICASONE PROPIONATE NASAL SPRAY NS SCH ×2 (09:41→17:17)
[2022-03-12] MEDS: DULOXETINE HCL 20 MG DELAYED RELEASE PO SCH (09:42)
[2022-03-12] MEDS: SIMVASTATIN 40 MG TAB PO SCH (09:42)
[2022-03-12] MEDS: PREDNISONE 5 MG TAB PO SCH (09:42)
[2022-03-12] MEDS ORDERED: DEXTROSE 50% SYRINGE 50 ML IV PRN (12:15)
[2022-03-12] MEDS: INSULIN LISPRO 100 UNIT/1 ML 3ML VIAL SQ SCH ×3 (12:30→21:00)
[2022-03-12] MEDS ORDERED: ACETAMINOPHEN 325 MG TAB PO PRN (14:15)
[2022-03-12 14:19] LABS: HEMOGLOBIN 11.7 g/dL (14.0-18.0)
[2022-03-12 19:06] LABS: HEMATOCRIT 34.7 % (38.2-49.6); HEMOGLOBIN 10.2 g/dL (14.0-18.0)
[2022-03-12] MEDS ORDERED: MONTELUKAST SODIUM 10 MG TAB PO SCH (21:00)
[2022-03-13] MEDS: SODIUM CHLORIDE 0.9% 1000ML 1,000 ML IV SCH (03:15)
[2022-03-13] MEDS: ALBUTEROL/IPRATROPIUM 3 ML NEB INH SCH ×3 (03:35→11:05)
[2022-03-13 06:06] VITALS: BP 143/70
[2022-03-13] MEDS: INSULIN LISPRO 100 UNIT/1 ML 3ML VIAL SQ SCH (07:30)
[2022-03-13 08:00] VITALS: BP 143/70
[2022-03-13] MEDS: BUDESONIDE 0.5MG/2 ML NEB NEB SCH (08:20)
[2022-03-13 08:38] LABS: BASOPHILS # (AUTO) 0.1 (0.0-0.1); BASOPHILS % 0.3 % (0.0-1.0); EOSINOPHILS % 0.2 % (0.0-6.0); HEMATOCRIT 38.1 % (38.2-49.6); HEMOGLOBIN 11.6 g/dL (14.0-18.0); LYMPHOCYTES # (AUTO) 1.5 (1.0-3.2); LYMPHOCYTES % 10.2 % (18.0-39.1); MEAN CORPUSCULAR HEMOGLOBIN 25.6 pg (28-32); MEAN CORPUSCULAR HGB CONC 30.4 g/dL (31-35); MEAN CORPUSCULAR VOLUME 84.1 fL (81-99); MONOCYTES % 6.8 % (4.4-11.3); NEUTROPHILS # (AUTO) 12.3 (2.1-6.9); NEUTROPHILS % 81.6 % (38.7-80.0); PLATELET COUNT 285 x10e3/uL (140-360); RED BLOOD COUNT 4.53 x10e6/uL (4.3-5.7); RED CELL DISTRIBUTION WIDTH 17.7 % (11.7-14.4)
[2022-03-13 08:50] VITALS: BP 131/76
[2022-03-13 08:56] LABS: INR 0.87; PROTHROMBIN TIME 12.6 seconds (11.9-14.5)
[2022-03-13] MEDS: SIMVASTATIN 40 MG TAB PO SCH (08:59)
[2022-03-13] MEDS: METFORMIN HCL 500 MG TAB CR PO SCH (08:59)
[2022-03-13] MEDS: PREDNISONE 5 MG TAB PO SCH (09:00)
[2022-03-13] MEDS: FLUTICASONE PROPIONATE NASAL SPRAY NS SCH (09:00)
[2022-03-13] MEDS: DULOXETINE HCL 20 MG DELAYED RELEASE PO SCH (09:00)
[2022-03-13] MEDS: SUCRALFATE 1 GM TAB PO SCH (09:00)
[2022-03-13 11:30] VITALS: BP 144/80
== END 2022-03-13 11:51 | disposition home or self-care (01) | DRG 378 ==
LOC: ER 11:04 → ERHOLD 14:36 → MED/SURG3 22:40
PROVIDERS: ADMIT Internal Medicine; ATTEND Internal Medicine
DX: K57.31 Diverticulosis of large intestine without perforation or abscess with bleeding (principal); J96.11 Chronic respiratory failure with hypoxia; D64.9 Anemia, unspecified; E11.9 Type 2 diabetes mellitus without complications; J44.9 Chronic obstructive pulmonary disease, unspecified; I10 Essential (primary) hypertension; Z88.0 Allergy status to penicillin; Z99.81 Dependence on supplemental oxygen; E78.5 Hyperlipidemia, unspecified; K21.9 Gastro-esophageal reflux disease without esophagitis; K59.00 Constipation, unspecified; Z79.82 Long term (current) use of aspirin; Z79.4 Long term (current) use of insulin
CPT/HCPCS: 36415; 74174; 80053; 81001; 82150; 82270; 82948; 83690; 85014; 85018; 85025; 85610; 86850; 86900; 94640; 94760; 94799; 99285; J7030; J7050; J7512; Q9967

== ENCOUNTER 2023-01-05 15:43 | Inpatient (IN) | payer MEDICARE, OTHER ==
[~2023-01-05] VITALS: Ht 160 cm; Wt 66.9 kg
[2023-01-05] MEDS ORDERED: SODIUM CHLORIDE FLUSH 10 ML SYR IV PRN (16:00)
[2023-01-05] MEDS ORDERED: SODIUM CHLORIDE 0.9% 250ML 250 ML IV ONE ×2 (16:00→20:00)
[2023-01-05] MEDS ORDERED: SODIUM CHLORIDE 0.9% 1000ML 1,000 ML IV ONE ×2 (16:15→17:30)
[2023-01-05 16:43] LABS: BASOPHILS # (AUTO) 0.1 (0.0-0.1); BASOPHILS % 0.4 % (0.0-1.0); HEMATOCRIT 27.2 % (38.2-49.6); HEMOGLOBIN 8.3 g/dL (14.0-18.0); LYMPHOCYTES # (AUTO) 0.7 (1.0-3.2); LYMPHOCYTES % 5.2 % (18.0-39.1); MEAN CORPUSCULAR HEMOGLOBIN 27.8 pg (28-32); MEAN CORPUSCULAR HGB CONC 30.5 g/dL (31-35); MONOCYTES # (AUTO) 0.7 (0.2-0.8); NEUTROPHILS # (AUTO) 12.7 (2.1-6.9); NEUTROPHILS % 88.5 % (38.7-80.0); PLATELET COUNT 381 x10e3/uL (140-360); RED BLOOD COUNT 2.99 x10e6/uL (4.3-5.7); RED CELL DISTRIBUTION WIDTH 15.6 % (11.7-14.4)
[2023-01-05 16:53] LABS: PARTIAL THROMBOPLASTIN TIME 25.2 seconds (23.8-35.5); PROTHROMBIN TIME 13.7 seconds (11.9-14.5)
[2023-01-05 17:02] LABS: ALBUMIN 2.9 g/dL (3.5-5.0); ALBUMIN/GLOBULIN RATIO 0.9 (0.8-2.0); ANION GAP 15.6 mmol/L (8-16); CALCIUM 8.7 mg/dL (8.4-10.2); CREATININE, SERUM 0.94 mg/dL (0.72-1.25); POTASSIUM 5.6 mmol/L (3.5-5.1)
[2023-01-05] MEDS ORDERED: IOPAMIDOL 610MG/1ML 300 MG/ML VIAL IV ONE (17:17)
[2023-01-05] MEDS ORDERED: DEXTROSE 50% SYRINGE 50 ML IV STA (17:28)
[2023-01-05] MEDS ORDERED: SODIUM BICARBONATE 8.4% INJ 50 ML SYR IV STA (17:28)
[2023-01-05] MEDS ORDERED: INSULIN REGULAR, HUMAN 100 UNIT/1 ML IV ONE (17:30)
[2023-01-05] MEDS ORDERED: SODIUM CHLORIDE 0.9% 1000ML 1,000 ML IV SCH (17:45)
[2023-01-05] MEDS: Morphine 2mg Syringe 2 MG/ML SYR IV PRN ×2 (18:20→22:18)
[2023-01-05] MEDS: ONDANSETRON HCL INJ 2MG/ML 2ML 2 MG/ML VIAL IV PRN ×2 (18:20→22:17)
[2023-01-05 19:49] LABS: HEMATOCRIT 19.1 % (38.2-49.6); HEMOGLOBIN 5.9 g/dL (14.0-18.0)
[2023-01-05] MEDS ORDERED: FUROSEMIDE INJ 10 MG/ML 2 ML VIAL IV ONE (20:15)
[2023-01-05 21:00] VITALS: BP_SYST 104; BP_SYST 114; BP_DIAS 46; BP_DIAS 59
[2023-01-05 22:00] VITALS: BP 133/54
[2023-01-05 23:00] VITALS: BP 123/61
[2023-01-06] VITALS (59 sets, daily range): BP systolic 97–164; BP diastolic 51–115
[2023-01-06] MEDS ORDERED: SODIUM CHLORIDE 0.9% 250ML 250 ML ONE ×2 (00:10→03:40)
[2023-01-06 00:26] LABS: HEMATOCRIT 19.3 % (38.2-49.6); HEMOGLOBIN 5.8 g/dL (14.0-18.0)
[2023-01-06 02:02] LABS: % IRON SATURATION 20 % (15-50); IRON 69 ug/dL (65-175); TOTAL IRON BINDING CAPACITY 340 ug/dL (261-478); TRANSFERRIN 243 mg/dL (174-364)
[2023-01-06] MEDS ORDERED: FUROSEMIDE INJ 10 MG/ML 2 ML VIAL ONE (03:18)
[2023-01-06] MEDS: Morphine 2mg Syringe 2 MG/ML SYR IV PRN ×4 (03:18→19:44)
[2023-01-06] MEDS ORDERED: ZOLPIDEM TARTRATE 10 MG TAB PO PRN (05:00)
[2023-01-06] MEDS ORDERED: ALBUTEROL/IPRATROPIUM 3 ML NEB NEB PRN (05:00)
[2023-01-06] MEDS ORDERED: BUDESONIDE IH SCH (06:00)
[2023-01-06 07:00] LABS: BASOPHILS # (AUTO) 0.1 (0.0-0.1); BASOPHILS % 0.6 % (0.0-1.0); EOSINOPHILS % 0.1 % (0.0-6.0); HEMATOCRIT 27.5 % (38.2-49.6); HEMOGLOBIN 8.6 g/dL (14.0-18.0); LYMPHOCYTES # (AUTO) 1.3 (1.0-3.2); LYMPHOCYTES % 13.6 % (18.0-39.1); MEAN CORPUSCULAR HGB CONC 31.3 g/dL (31-35); MEAN CORPUSCULAR VOLUME 89.6 fL (81-99); MONOCYTES # (AUTO) 0.9 (0.2-0.8); MONOCYTES % 9.6 % (4.4-11.3); NEUTROPHILS # (AUTO) 7.1 (2.1-6.9); NEUTROPHILS % 75.1 % (38.7-80.0); PLATELET COUNT 240 x10e3/uL (140-360); RED BLOOD COUNT 3.07 x10e6/uL (4.3-5.7)
[2023-01-06] MEDS: SUCRALFATE 1 GM TAB PO SCH ×3 (07:18→18:44)
[2023-01-06 07:24] LABS: ALBUMIN 2.8 g/dL (3.5-5.0); ALBUMIN/GLOBULIN RATIO 1.2 (0.8-2.0); ANION GAP 11.2 mmol/L (8-16); CALCIUM 8.1 mg/dL (8.4-10.2); CREATININE, SERUM 0.85 mg/dL (0.72-1.25); POTASSIUM 4.2 mmol/L (3.5-5.1)
[2023-01-06] MEDS: ALBUTEROL SULF 0.083% NEB SOLN 3 ML NEB NEB PRN ×2 (07:45→18:15)
[2023-01-06] MEDS: IPRATROPIUM BROMIDE 0.02% 2.5 ML NEB NEB PRN ×2 (07:45→18:15)
[2023-01-06] MEDS ORDERED: ALBUTEROL SULFATE HFA 8GM INHALATION AEROSOL INH PRN (08:00)
[2023-01-06] MEDS: DULOXETINE HCL 20 MG DELAYED RELEASE PO SCH (10:15)
[2023-01-06] MEDS: Doxycycline IV 100 MG in SODIUM CHLORIDE 0.9% 100 ML IV SCH ×2 (10:15→19:44)
[2023-01-06] MEDS: SIMVASTATIN 40 MG TAB PO SCH (10:15)
[2023-01-06] MEDS: MONTELUKAST SODIUM 10 MG TAB PO SCH (10:16)
[2023-01-06] MEDS: FLUTICASONE PROPIONATE NASAL SPRAY NS SCH ×2 (10:16→18:43)
[2023-01-06] MEDS: BUDESONIDE/FORMOTEROL 160/4.5MCG INHALER INH SCH (18:45)
[2023-01-07] VITALS (10 sets, daily range): BP systolic 137–178; BP diastolic 51–72
[2023-01-07] MEDS: Morphine 2mg Syringe 2 MG/ML SYR IV PRN ×2 (02:41→20:31)
[2023-01-07 06:51] LABS: BASOPHILS # (AUTO) 0.1 (0.0-0.1); BASOPHILS % 0.9 % (0.0-1.0); EOSINOPHILS % 0.3 % (0.0-6.0); HEMATOCRIT 26.5 % (38.2-49.6); HEMOGLOBIN 8.3 g/dL (14.0-18.0); LYMPHOCYTES # (AUTO) 1.4 (1.0-3.2); LYMPHOCYTES % 14.2 % (18.0-39.1); MEAN CORPUSCULAR HEMOGLOBIN 28.3 pg (28-32); MEAN CORPUSCULAR HGB CONC 31.3 g/dL (31-35); MEAN CORPUSCULAR VOLUME 90.4 fL (81-99); MONOCYTES # (AUTO) 0.9 (0.2-0.8); MONOCYTES % 9.1 % (4.4-11.3); NEUTROPHILS # (AUTO) 7.4 (2.1-6.9); NEUTROPHILS % 74.8 % (38.7-80.0); PLATELET COUNT 240 x10e3/uL (140-360); RED BLOOD COUNT 2.93 x10e6/uL (4.3-5.7); RED CELL DISTRIBUTION WIDTH 16.1 % (11.7-14.4)
[2023-01-07] MEDS: BUDESONIDE/FORMOTEROL 160/4.5MCG INHALER INH SCH ×2 (07:00→18:45)
[2023-01-07 07:14] LABS: ALBUMIN 2.7 g/dL (3.5-5.0); ANION GAP 10.9 mmol/L (8-16); CALCIUM 8.3 mg/dL (8.4-10.2); CREATININE, SERUM 0.8 mg/dL (0.72-1.25); POTASSIUM 3.9 mmol/L (3.5-5.1)
[2023-01-07] MEDS: IPRATROPIUM BROMIDE 0.02% 2.5 ML NEB NEB PRN ×3 (08:00→18:45)
[2023-01-07] MEDS: ALBUTEROL SULF 0.083% NEB SOLN 3 ML NEB NEB PRN ×3 (08:00→18:45)
[2023-01-07] MEDS: FLUTICASONE PROPIONATE NASAL SPRAY NS SCH ×2 (08:53→16:32)
[2023-01-07] MEDS: SUCRALFATE 1 GM TAB PO SCH ×3 (08:53→16:32)
[2023-01-07] MEDS: Doxycycline IV 100 MG in SODIUM CHLORIDE 0.9% 100 ML IV SCH ×2 (08:53→20:30)
[2023-01-07] MEDS: SIMVASTATIN 40 MG TAB PO SCH (08:53)
[2023-01-07] MEDS: DULOXETINE HCL 20 MG DELAYED RELEASE PO SCH (08:53)
[2023-01-07] MEDS: MONTELUKAST SODIUM 10 MG TAB PO SCH (08:53)
[2023-01-07] MEDS: GUAIFENESIN/DEXTROMETHORPHAN LIQD 5 ML UDC PO PRN (20:35)
[2023-01-08] VITALS (10 sets, daily range): BP systolic 124–160; BP diastolic 52–98
[2023-01-08] MEDS: Morphine 2mg Syringe 2 MG/ML SYR IV PRN ×2 (00:35→21:44)
[2023-01-08] MEDS: BUDESONIDE/FORMOTEROL 160/4.5MCG INHALER INH SCH ×2 (07:00→19:55)
[2023-01-08 07:01] LABS: BASOPHILS # (AUTO) 0.1 (0.0-0.1); BASOPHILS % 0.6 % (0.0-1.0); EOSINOPHILS # (AUTO) 0.1 (0.0-0.4); EOSINOPHILS % 0.6 % (0.0-6.0); HEMATOCRIT 25.8 % (38.2-49.6); LYMPHOCYTES # (AUTO) 1.3 (1.0-3.2); LYMPHOCYTES % 13.2 % (18.0-39.1); MEAN CORPUSCULAR HEMOGLOBIN 27.9 pg (28-32); MEAN CORPUSCULAR VOLUME 89.9 fL (81-99); MONOCYTES # (AUTO) 0.9 (0.2-0.8); MONOCYTES % 8.9 % (4.4-11.3); NEUTROPHILS # (AUTO) 7.4 (2.1-6.9); NEUTROPHILS % 75.9 % (38.7-80.0); PLATELET COUNT 229 x10e3/uL (140-360); RED BLOOD COUNT 2.87 x10e6/uL (4.3-5.7); RED CELL DISTRIBUTION WIDTH 15.5 % (11.7-14.4)
[2023-01-08] MEDS: IPRATROPIUM BROMIDE 0.02% 2.5 ML NEB NEB PRN (07:26)
[2023-01-08] MEDS: ALBUTEROL SULF 0.083% NEB SOLN 3 ML NEB NEB PRN ×2 (07:26→19:40)
[2023-01-08 07:27] LABS: ALBUMIN 2.8 g/dL (3.5-5.0); ALBUMIN/GLOBULIN RATIO 1.1 (0.8-2.0); ANION GAP 10.7 mmol/L (8-16); CALCIUM 8.3 mg/dL (8.4-10.2); CREATININE, SERUM 0.8 mg/dL (0.72-1.25); POTASSIUM 3.7 mmol/L (3.5-5.1)
[2023-01-08] MEDS: MONTELUKAST SODIUM 10 MG TAB PO SCH (07:59)
[2023-01-08] MEDS: SUCRALFATE 1 GM TAB PO SCH ×3 (07:59→16:14)
[2023-01-08] MEDS: DULOXETINE HCL 20 MG DELAYED RELEASE PO SCH (07:59)
[2023-01-08] MEDS: SIMVASTATIN 40 MG TAB PO SCH (07:59)
[2023-01-08] MEDS: FLUTICASONE PROPIONATE NASAL SPRAY NS SCH ×2 (08:00→16:17)
[2023-01-08] MEDS: Doxycycline IV 100 MG in SODIUM CHLORIDE 0.9% 100 ML IV SCH ×2 (08:00→21:27)
[2023-01-08] MEDS: GUAIFENESIN/DEXTROMETHORPHAN LIQD 5 ML UDC PO PRN ×2 (16:19→22:00)
[2023-01-08] MEDS: HYDROCODONE/APAP 10MG-325MG TAB PO PRN (19:30)
[2023-01-08] MEDS ORDERED: SODIUM CHLORIDE 0.9% 250ML 250 ML ONE (21:18)
[2023-01-09] VITALS (8 sets, daily range): BP systolic 124–153; BP diastolic 56–73
[2023-01-09 06:49] LABS: BASOPHILS # (AUTO) 0.1 (0.0-0.1); BASOPHILS % 0.6 % (0.0-1.0); EOSINOPHILS # (AUTO) 0.1 (0.0-0.4); EOSINOPHILS % 0.9 % (0.0-6.0); HEMATOCRIT 26.9 % (38.2-49.6); HEMOGLOBIN 8.6 g/dL (14.0-18.0); LYMPHOCYTES # (AUTO) 1.4 (1.0-3.2); LYMPHOCYTES % 13.4 % (18.0-39.1); MEAN CORPUSCULAR HEMOGLOBIN 27.9 pg (28-32); MEAN CORPUSCULAR VOLUME 87.3 fL (81-99); MONOCYTES # (AUTO) 0.9 (0.2-0.8); MONOCYTES % 8.2 % (4.4-11.3); NEUTROPHILS # (AUTO) 8.1 (2.1-6.9); NEUTROPHILS % 76.3 % (38.7-80.0); PLATELET COUNT 263 x10e3/uL (140-360); RED BLOOD COUNT 3.08 x10e6/uL (4.3-5.7); RED CELL DISTRIBUTION WIDTH 15.3 % (11.7-14.4)
[2023-01-09] MEDS: BUDESONIDE/FORMOTEROL 160/4.5MCG INHALER INH SCH ×2 (08:25→19:15)
[2023-01-09] MEDS: Doxycycline IV 100 MG in SODIUM CHLORIDE 0.9% 100 ML IV SCH ×2 (08:35→21:03)
[2023-01-09] MEDS: SIMVASTATIN 40 MG TAB PO SCH (08:36)
[2023-01-09] MEDS: DULOXETINE HCL 20 MG DELAYED RELEASE PO SCH (08:36)
[2023-01-09] MEDS: MONTELUKAST SODIUM 10 MG TAB PO SCH (08:36)
[2023-01-09] MEDS: SUCRALFATE 1 GM TAB PO SCH ×3 (08:36→16:47)
[2023-01-09] MEDS: FLUTICASONE PROPIONATE NASAL SPRAY NS SCH ×2 (08:45→16:47)
[2023-01-09] MEDS: GUAIFENESIN/DEXTROMETHORPHAN LIQD 5 ML UDC PO PRN (11:14)
[2023-01-09] MEDS: HYDROCODONE/APAP 10MG-325MG TAB PO PRN (20:09)
[2023-01-09] MEDS: Morphine 2mg Syringe 2 MG/ML SYR IV PRN (22:28)
[2023-01-10] VITALS (7 sets, daily range): BP systolic 120–150; BP diastolic 54–70
[2023-01-10 05:55] LABS: BASOPHILS # (AUTO) 0.1 (0.0-0.1); BASOPHILS % 0.6 % (0.0-1.0); EOSINOPHILS # (AUTO) 0.1 (0.0-0.4); EOSINOPHILS % 0.7 % (0.0-6.0); HEMATOCRIT 26.4 % (38.2-49.6); HEMOGLOBIN 8.2 g/dL (14.0-18.0); LYMPHOCYTES # (AUTO) 1.3 (1.0-3.2); LYMPHOCYTES % 13.3 % (18.0-39.1); MEAN CORPUSCULAR HGB CONC 31.1 g/dL (31-35); MEAN CORPUSCULAR VOLUME 90.1 fL (81-99); MONOCYTES # (AUTO) 0.9 (0.2-0.8); NEUTROPHILS # (AUTO) 7.5 (2.1-6.9); NEUTROPHILS % 75.6 % (38.7-80.0); PLATELET COUNT 268 x10e3/uL (140-360); RED BLOOD COUNT 2.93 x10e6/uL (4.3-5.7); RED CELL DISTRIBUTION WIDTH 15.1 % (11.7-14.4)
[2023-01-10] MEDS: BUDESONIDE/FORMOTEROL 160/4.5MCG INHALER INH SCH ×2 (07:00→19:47)
[2023-01-10] MEDS: MONTELUKAST SODIUM 10 MG TAB PO SCH (09:05)
[2023-01-10] MEDS: SUCRALFATE 1 GM TAB PO SCH ×3 (09:05→17:23)
[2023-01-10] MEDS: Doxycycline IV 100 MG in SODIUM CHLORIDE 0.9% 100 ML IV SCH ×2 (09:05→22:01)
[2023-01-10] MEDS: FLUTICASONE PROPIONATE NASAL SPRAY NS SCH ×2 (09:05→17:23)
[2023-01-10] MEDS: DULOXETINE HCL 20 MG DELAYED RELEASE PO SCH (09:05)
[2023-01-10] MEDS: SIMVASTATIN 40 MG TAB PO SCH (09:05)
[2023-01-10] MEDS: ALBUTEROL SULF 0.083% NEB SOLN 3 ML NEB NEB PRN ×2 (09:30→19:47)
[2023-01-10] MEDS ORDERED: BISACODYL 5 MG TAB EC PO ONE (11:15)
[2023-01-10] MEDS: Morphine 2mg Syringe 2 MG/ML SYR IV PRN ×2 (14:06→22:10)
[2023-01-10] MEDS: IPRATROPIUM BROMIDE 0.02% 2.5 ML NEB NEB PRN (19:47)
[2023-01-11] VITALS (7 sets, daily range): BP systolic 128–162; BP diastolic 53–72
[2023-01-11 05:55] LABS: BASOPHILS # (AUTO) 0.1 (0.0-0.1); BASOPHILS % 0.6 % (0.0-1.0); EOSINOPHILS # (AUTO) 0.1 (0.0-0.4); EOSINOPHILS % 0.9 % (0.0-6.0); HEMATOCRIT 25.3 % (38.2-49.6); HEMOGLOBIN 8.1 g/dL (14.0-18.0); LYMPHOCYTES # (AUTO) 1.4 (1.0-3.2); LYMPHOCYTES % 13.2 % (18.0-39.1); MEAN CORPUSCULAR HEMOGLOBIN 28.1 pg (28-32); MEAN CORPUSCULAR VOLUME 87.8 fL (81-99); MONOCYTES % 9.6 % (4.4-11.3); NEUTROPHILS # (AUTO) 7.9 (2.1-6.9); NEUTROPHILS % 75.2 % (38.7-80.0); PLATELET COUNT 282 x10e3/uL (140-360); RED BLOOD COUNT 2.88 x10e6/uL (4.3-5.7); RED CELL DISTRIBUTION WIDTH 15.3 % (11.7-14.4)
[2023-01-11 06:27] LABS: ALANINE AMINOTRANSFERASE 12 IU/L (0-55); ALBUMIN < 0.4 g/dL (3.5-5.0); ALBUMIN/GLOBULIN RATIO 0.1 (0.8-2.0); ALKALINE PHOSPHATASE 63 IU/L (40-150); ANION GAP 12.4 mmol/L (8-16); BLOOD UREA NITROGEN 15 mg/dL (7-26); BUN/CREATININE RATIO 19 (6-25); CALCIUM 8.5 mg/dL (8.4-10.2); CARBON DIOXIDE 27 mmol/L (22-29); CHLORIDE 106 mmol/L (98-107); CREATININE, SERUM 0.79 mg/dL (0.72-1.25); GLUCOSE 119 mg/dL (74-118); POTASSIUM 3.4 mmol/L (3.5-5.1); SODIUM 142 mmol/L (136-145)
[2023-01-11] MEDS ORDERED: IOPAMIDOL 370 MG/ML 100 ML INFUS..BTL INJ ONE (08:07)
[2023-01-11] MEDS: BUDESONIDE/FORMOTEROL 160/4.5MCG INHALER INH SCH ×2 (08:24→19:20)
[2023-01-11] MEDS: DULOXETINE HCL 20 MG DELAYED RELEASE PO SCH (09:07)
[2023-01-11] MEDS: SIMVASTATIN 40 MG TAB PO SCH (09:07)
[2023-01-11] MEDS: MONTELUKAST SODIUM 10 MG TAB PO SCH (09:07)
[2023-01-11] MEDS: SUCRALFATE 1 GM TAB PO SCH ×3 (09:07→16:38)
[2023-01-11] MEDS: Doxycycline IV 100 MG in SODIUM CHLORIDE 0.9% 100 ML IV SCH ×2 (09:09→20:00)
[2023-01-11] MEDS: FLUTICASONE PROPIONATE NASAL SPRAY NS SCH ×2 (09:12→16:39)
[2023-01-11] MEDS: ALBUTEROL SULF 0.083% NEB SOLN 3 ML NEB NEB PRN ×2 (09:57→19:20)
[2023-01-11] MEDS: IPRATROPIUM BROMIDE 0.02% 2.5 ML NEB NEB PRN ×2 (09:57→19:20)
[2023-01-11] MEDS: Morphine 2mg Syringe 2 MG/ML SYR IV PRN ×2 (13:05→20:01)
[2023-01-12] VITALS (7 sets, daily range): BP systolic 131–153; BP diastolic 53–73
[2023-01-12] MEDS: Morphine 2mg Syringe 2 MG/ML SYR IV PRN
[2023-01-12 06:13] LABS: BASOPHILS # (AUTO) 0.1 (0.0-0.1); BASOPHILS % 0.8 % (0.0-1.0); EOSINOPHILS # (AUTO) 0.2 (0.0-0.4); EOSINOPHILS % 1.6 % (0.0-6.0); HEMATOCRIT 26.4 % (38.2-49.6); HEMOGLOBIN 8.2 g/dL (14.0-18.0); LYMPHOCYTES # (AUTO) 1.4 (1.0-3.2); MEAN CORPUSCULAR HEMOGLOBIN 28.6 pg (28-32); MEAN CORPUSCULAR HGB CONC 31.1 g/dL (31-35); MONOCYTES % 9.7 % (4.4-11.3); NEUTROPHILS # (AUTO) 7.9 (2.1-6.9); NEUTROPHILS % 74.2 % (38.7-80.0); PLATELET COUNT 294 x10e3/uL (140-360); RED BLOOD COUNT 2.87 x10e6/uL (4.3-5.7); RED CELL DISTRIBUTION WIDTH 15.3 % (11.7-14.4)
[2023-01-12 06:47] LABS: ALBUMIN 2.7 g/dL (3.5-5.0); ANION GAP 11.6 mmol/L (8-16); CALCIUM 8.6 mg/dL (8.4-10.2); CREATININE, SERUM 0.79 mg/dL (0.72-1.25); POTASSIUM 3.6 mmol/L (3.5-5.1)
[2023-01-12] MEDS: IPRATROPIUM BROMIDE 0.02% 2.5 ML NEB NEB PRN ×3 (08:14→19:55)
[2023-01-12] MEDS: ALBUTEROL SULF 0.083% NEB SOLN 3 ML NEB NEB PRN ×3 (08:14→19:55)
[2023-01-12] MEDS: BUDESONIDE/FORMOTEROL 160/4.5MCG INHALER INH SCH ×2 (08:32→19:00)
[2023-01-12] MEDS: SIMVASTATIN 40 MG TAB PO SCH (08:35)
[2023-01-12] MEDS: SUCRALFATE 1 GM TAB PO SCH ×3 (08:35→18:51)
[2023-01-12] MEDS: DULOXETINE HCL 20 MG DELAYED RELEASE PO SCH (08:35)
[2023-01-12] MEDS: MONTELUKAST SODIUM 10 MG TAB PO SCH (08:35)
[2023-01-12] MEDS: Doxycycline IV 100 MG in SODIUM CHLORIDE 0.9% 100 ML IV SCH ×2 (08:36→20:11)
[2023-01-12] MEDS: FLUTICASONE PROPIONATE NASAL SPRAY NS SCH ×2 (08:42→17:00)
[2023-01-12] MEDS: GUAIFENESIN/DEXTROMETHORPHAN LIQD 5 ML UDC PO PRN ×3 (09:47→20:09)
[2023-01-12] MEDS ORDERED: SODIUM CHLORIDE 0.9% 250ML 250 ML ONE (11:22)
[2023-01-12] MEDS: HYDROCODONE/APAP 10MG-325MG TAB PO PRN ×2 (15:43→20:09)
[2023-01-13] VITALS (7 sets, daily range): BP systolic 124–153; BP diastolic 54–67
[2023-01-13] MEDS: HYDROCODONE/APAP 10MG-325MG TAB PO PRN ×4 (00:43→20:28)
[2023-01-13] MEDS: ALBUTEROL SULF 0.083% NEB SOLN 3 ML NEB NEB PRN ×3 (01:00→19:40)
[2023-01-13] MEDS: IPRATROPIUM BROMIDE 0.02% 2.5 ML NEB NEB PRN ×2 (01:00→19:40)
[2023-01-13] MEDS ORDERED: MAGNESIUM HYDROXIDE 30 ML UDC PO ONE (03:00)
[2023-01-13 06:33] LABS: BASOPHILS # (AUTO) 0.1 (0.0-0.1); BASOPHILS % 0.7 % (0.0-1.0); EOSINOPHILS # (AUTO) 0.1 (0.0-0.4); EOSINOPHILS % 0.6 % (0.0-6.0); HEMATOCRIT 25.2 % (38.2-49.6); HEMOGLOBIN 7.7 g/dL (14.0-18.0); LYMPHOCYTES # (AUTO) 1.1 (1.0-3.2); LYMPHOCYTES % 11.9 % (18.0-39.1); MEAN CORPUSCULAR HGB CONC 30.6 g/dL (31-35); MEAN CORPUSCULAR VOLUME 91.6 fL (81-99); MONOCYTES # (AUTO) 0.9 (0.2-0.8); NEUTROPHILS # (AUTO) 7.3 (2.1-6.9); NEUTROPHILS % 77.4 % (38.7-80.0); PLATELET COUNT 290 x10e3/uL (140-360); RED BLOOD COUNT 2.75 x10e6/uL (4.3-5.7); RED CELL DISTRIBUTION WIDTH 15.3 % (11.7-14.4)
[2023-01-13] MEDS: BUDESONIDE/FORMOTEROL 160/4.5MCG INHALER INH SCH ×2 (07:00→19:40)
[2023-01-13] MEDS: SIMVASTATIN 40 MG TAB PO SCH (08:15)
[2023-01-13] MEDS: DULOXETINE HCL 20 MG DELAYED RELEASE PO SCH (08:15)
[2023-01-13] MEDS: MONTELUKAST SODIUM 10 MG TAB PO SCH (08:15)
[2023-01-13] MEDS: SUCRALFATE 1 GM TAB PO SCH ×3 (08:15→16:58)
[2023-01-13] MEDS: FLUTICASONE PROPIONATE NASAL SPRAY NS SCH ×2 (08:16→16:56)
[2023-01-13] MEDS: DOXYCYCLINE HYCLATE TABLET 100 MG TAB PO SCH ×2 (08:18→16:58)
[2023-01-13] MEDS: GUAIFENESIN/DEXTROMETHORPHAN LIQD 5 ML UDC PO PRN ×2 (14:38→20:28)
[2023-01-13] MEDS: MAGNESIUM HYDROXIDE 30 ML UDC PO PRN (16:58)
[2023-01-14] VITALS: BP 125/55
[2023-01-14] MEDS: MAGNESIUM HYDROXIDE 30 ML UDC PO PRN (02:04)
[2023-01-14 04:00] VITALS: BP 133/57
[2023-01-14] MEDS ORDERED: LACTULOSE SYRUP 20 GM/30 ML UDC PO ONE (05:00)
[2023-01-14] MEDS: BUDESONIDE/FORMOTEROL 160/4.5MCG INHALER INH SCH (06:49)
[2023-01-14 06:59] LABS: BASOPHILS # (AUTO) 0.1 (0.0-0.1); BASOPHILS % 0.9 % (0.0-1.0); EOSINOPHILS # (AUTO) 0.1 (0.0-0.4); EOSINOPHILS % 0.8 % (0.0-6.0); HEMATOCRIT 27.3 % (38.2-49.6); HEMOGLOBIN 8.3 g/dL (14.0-18.0); LYMPHOCYTES # (AUTO) 1.2 (1.0-3.2); LYMPHOCYTES % 12.6 % (18.0-39.1); MEAN CORPUSCULAR HGB CONC 30.4 g/dL (31-35); MEAN CORPUSCULAR VOLUME 92.2 fL (81-99); MONOCYTES # (AUTO) 0.9 (0.2-0.8); MONOCYTES % 8.6 % (4.4-11.3); NEUTROPHILS # (AUTO) 7.5 (2.1-6.9); NEUTROPHILS % 76.5 % (38.7-80.0); PLATELET COUNT 297 x10e3/uL (140-360); RED BLOOD COUNT 2.96 x10e6/uL (4.3-5.7); RED CELL DISTRIBUTION WIDTH 15.1 % (11.7-14.4); RETICULOCYTE % 2.1 % (0.8-2.2)
[2023-01-14 07:24] LABS: ALBUMIN 2.9 g/dL (3.5-5.0); ALBUMIN/GLOBULIN RATIO 0.9 (0.8-2.0); ANION GAP 10.5 mmol/L (8-16); CALCIUM 8.7 mg/dL (8.4-10.2); CREATININE, SERUM 0.74 mg/dL (0.72-1.25); POTASSIUM 3.5 mmol/L (3.5-5.1)
[2023-01-14 08:29] VITALS: BP 150/74
[2023-01-14 08:42] VITALS: BP 150/74
[2023-01-14] MEDS ORDERED: IRON SUCROSE 100 MG in SODIUM CHLORIDE 0.9% 100 ML IV SCH (09:00)
[2023-01-14] MEDS: SUCRALFATE 1 GM TAB PO SCH ×3 (09:54→17:07)
[2023-01-14] MEDS: MONTELUKAST SODIUM 10 MG TAB PO SCH (09:54)
[2023-01-14] MEDS: DULOXETINE HCL 20 MG DELAYED RELEASE PO SCH (09:54)
[2023-01-14] MEDS: DOXYCYCLINE HYCLATE TABLET 100 MG TAB PO SCH ×2 (09:55→17:07)
[2023-01-14] MEDS: SIMVASTATIN 40 MG TAB PO SCH (09:55)
[2023-01-14] MEDS: FLUTICASONE PROPIONATE NASAL SPRAY NS SCH ×2 (10:01→17:07)
[2023-01-14] MEDS: GUAIFENESIN/DEXTROMETHORPHAN LIQD 5 ML UDC PO PRN (11:24)
[2023-01-14] MEDS: HYDROCODONE/APAP 10MG-325MG TAB PO PRN (11:25)
[2023-01-14 12:20] VITALS: BP 148/76
[2023-01-14 17:04] VITALS: BP 113/61
== END 2023-01-14 18:17 | disposition home health service (06) | DRG 377 ==
LOC: ER 15:49 → ERHOLD 17:36 → ICU 20:50 → MED/SURG3 01-08 10:10
PROVIDERS: ADMIT Internal Medicine; ATTEND Internal Medicine
PROC: 02HV33Z Insertion of Infusion Device into Superior Vena Cava, Percutaneous Approach (ICD-10-PCS; principal; 2023-01-06)
DX: K57.91 Diverticulosis of intestine, part unspecified, without perforation or abscess with bleeding (principal); J96.21 Acute and chronic respiratory failure with hypoxia; D62 Acute posthemorrhagic anemia; J44.1 Chronic obstructive pulmonary disease with (acute) exacerbation; E11.9 Type 2 diabetes mellitus without complications; F41.9 Anxiety disorder, unspecified; K21.9 Gastro-esophageal reflux disease without esophagitis; M54.9 Dorsalgia, unspecified; G89.29 Other chronic pain; M19.90 Unspecified osteoarthritis, unspecified site; E87.5 Hyperkalemia; D72.829 Elevated white blood cell count, unspecified; E78.5 Hyperlipidemia, unspecified; I25.10 Atherosclerotic heart disease of native coronary artery without angina pectoris; Z68.26 Body mass index [BMI] 26.0-26.9, adult; I10 Essential (primary) hypertension; R62.7 Adult failure to thrive; K59.00 Constipation, unspecified; Z20.822 Contact with and (suspected) exposure to COVID-19; Z99.81 Dependence on supplemental oxygen; Z88.0 Allergy status to penicillin; Z79.4 Long term (current) use of insulin; Z79.82 Long term (current) use of aspirin; Z79.84 Long term (current) use of oral hypoglycemic drugs; Z87.891 Personal history of nicotine dependence; Z95.5 Presence of coronary angioplasty implant and graft
CPT/HCPCS: 36415; 36569; 71045; 74177; 80053; 82607; 82746; 82948; 83540; 84132; 84466; 85014; 85018; 85025; 85045; 85610; 85730; 86850; 86900; 86920; 93005; 94640; 94664; 94799; 99252; 99284; J1756; J1940; J2270; J2405; J7030; J7050; J7799; P9016; Q9967

== ENCOUNTER 2023-07-27 14:39 | Inpatient (IN) | payer MEDICARE, OTHER ==
[2023-07-27] VITALS (21 sets, daily range): BP systolic 124–160; BP diastolic 59–73; PULSE 82–110; RESP 15–29; TEMP 97.8–98.2; O2SAT 96–100
[~2023-07-27] VITALS: Ht 160 cm; Wt 57.9 kg
[~2023-07-27 14:39] MED LIST changes: +HYDROCODONE-AC118 M1
[2023-07-27] MEDS ORDERED: SODIUM CHLORIDE 0.9% 1000ML 1,000 ML IV STA (14:58)
[2023-07-27] MEDS ORDERED: ALBUTEROL SULF 0.083% NEB SOLN 3 ML NEB ONE (15:03)
[2023-07-27] MEDS ORDERED: METHYLPREDNISOLONE SOD SUCC 125 MG/2ML VIAL IV ONE (15:15)
[2023-07-27 15:23] LABS: ABG HCO3 29 mmol/L (22-26); ABG PCO2 55 mmHg (35-45); ABG PH 7.33 (7.35-7.45); ABG PO2 214 mmHg (80-105); ABG TCO2 30
[2023-07-27 15:29] LABS: BASOPHILS # (AUTO) 0.1 (0.0-0.1); BASOPHILS % 0.6 % (0.0-1.0); HEMATOCRIT 35.3 % (38.2-49.6); HEMOGLOBIN 10.9 g/dL (14.0-18.0); LYMPHOCYTES % 16.8 % (18.0-39.1); MEAN CORPUSCULAR HEMOGLOBIN 27.5 pg (28-32); MEAN CORPUSCULAR HGB CONC 30.9 g/dL (31-35); MEAN CORPUSCULAR VOLUME 89.1 fL (81-99); MONOCYTES % 8.4 % (4.4-11.3); NEUTROPHILS # (AUTO) 8.8 (2.1-6.9); NEUTROPHILS % 73.7 % (38.7-80.0); PLATELET COUNT 360 x10e3/uL (140-360); RED BLOOD COUNT 3.96 x10e6/uL (4.3-5.7); RED CELL DISTRIBUTION WIDTH 16.4 % (11.7-14.4); WHITE BLOOD COUNT 11.98 x10e3/uL (4.8-10.8)
[2023-07-27 15:35] LABS: INR 1.1; PROTHROMBIN TIME 14.4 seconds (11.9-14.5)
[2023-07-27 15:36] LABS: PARTIAL THROMBOPLASTIN TIME 28.8 seconds (23.8-35.5)
[2023-07-27] MEDS ORDERED: ACETAMINOPHEN 1000 MG/100 ML IV STA (15:42)
[2023-07-27 15:46] LABS: ALBUMIN 3.7 g/dL (3.5-5.0); ALBUMIN/GLOBULIN RATIO 0.9 (0.8-2.0); ANION GAP 16.5 mmol/L (8-16); CALCIUM 9.7 mg/dL (8.4-10.2); CREATININE, SERUM 0.95 mg/dL (0.72-1.25); MAGNESIUM 2.1 MG/DL (1.3-2.1); POTASSIUM 4.5 mmol/L (3.5-5.1)
[2023-07-27] MEDS: Doxycycline IV 100 MG in SODIUM CHLORIDE 0.9% 100 ML IV SCH (15:49)
[2023-07-27] MEDS ORDERED: SODIUM CHLORIDE 0.9% 1000ML 1,000 ML IV SCH (16:00)
[2023-07-27] MEDS ORDERED: FUROSEMIDE INJ 10 MG/ML 2 ML VIAL IV ONE (16:15)
[2023-07-27] MEDS ORDERED: ZOLPIDEM TARTRATE 5 MG TAB PO PRN (16:15)
[2023-07-27] MEDS ORDERED: ALBUTEROL/IPRATROPIUM 3 ML NEB NEB SCH (19:00)
[2023-07-27] MEDS: ALBUTEROL SULF 0.083% NEB SOLN 3 ML NEB INH SCH (19:20)
[2023-07-27] MEDS: METHYLPREDNISOLONE SOD SUCC 40 MG/ML VIAL 1ML IV SCH (21:20)
[2023-07-27] MEDS ORDERED: METHYLPREDNISOLONE SOD SUCC 125 MG/2ML VIAL IV SCH (22:00)
[2023-07-28] VITALS (32 sets, daily range): BP systolic 131–182; BP diastolic 61–101; PULSE 84–102; RESP 15–28; TEMP 97.6–98; O2SAT 95–100
[2023-07-28] MEDS: ALBUTEROL SULF 0.083% NEB SOLN 3 ML NEB INH SCH ×4 (01:25→19:58)
[2023-07-28] MEDS: Doxycycline IV 100 MG in SODIUM CHLORIDE 0.9% 100 ML IV SCH ×3 (03:50→16:08)
[2023-07-28 06:56] LABS: BASOPHILS % 0.2 % (0.0-1.0); HEMATOCRIT 29.3 % (38.2-49.6); HEMOGLOBIN 9.1 g/dL (14.0-18.0); LYMPHOCYTES # (AUTO) 0.5 (1.0-3.2); MEAN CORPUSCULAR HEMOGLOBIN 27.6 pg (28-32); MEAN CORPUSCULAR HGB CONC 31.1 g/dL (31-35); MEAN CORPUSCULAR VOLUME 88.8 fL (81-99); MONOCYTES # (AUTO) 0.2 (0.2-0.8); MONOCYTES % 3.9 % (4.4-11.3); NEUTROPHILS % 87.5 % (38.7-80.0); PLATELET COUNT 247 x10e3/uL (140-360); RED CELL DISTRIBUTION WIDTH 16.3 % (11.7-14.4); WHITE BLOOD COUNT 5.66 x10e3/uL (4.8-10.8)
[2023-07-28 07:16] LABS: ALBUMIN 2.9 g/dL (3.5-5.0); ALBUMIN/GLOBULIN RATIO 0.8 (0.8-2.0); ANION GAP 15.2 mmol/L (8-16); CALCIUM 8.8 mg/dL (8.4-10.2); CREATININE, SERUM 0.86 mg/dL (0.72-1.25); POTASSIUM 4.2 mmol/L (3.5-5.1)
[2023-07-28] MEDS: MONTELUKAST SODIUM 10 MG TAB PO SCH (08:29)
[2023-07-28] MEDS: METHYLPREDNISOLONE SOD SUCC 40 MG/ML VIAL 1ML IV SCH ×2 (08:29→21:01)
[2023-07-28] MEDS: DULOXETINE HCL 20 MG DELAYED RELEASE PO SCH (08:29)
[2023-07-28] MEDS: PANTOPRAZOLE SOD 40 MG TABEC PO SCH (08:29)
[2023-07-28] MEDS ORDERED: HYDRALAZINE HCL 20 MG/ML VIAL IV PRN (16:15)
[2023-07-28 16:55] LABS: CLARITY,URINE SL CLOUDY (CLEAR); COLOR,URINE YELLOW (YELLOW); KETONES,URINE NEGATIVE (NEGATIVE); LEUKOCYTE ESTERASE ,URINE NEGATIVE (NEGATIVE); NITRITE,URINE NEGATIVE (NEGATIVE); PROTEIN,URINE DIPSTICK 2+ (NEGATIVE); URINE UROBILINOGEN 0.2 mg/dL (0.2 - 1)
[2023-07-28 17:09] LABS: BACTERIA,URINE RARE /HPF; WBC,URINE (MAN) 0-5 /HPF (0-5)
[2023-07-28] MEDS: GUAIFENESIN/CODEINE 5 ML LIQD PO PRN (17:54)
[2023-07-28] MEDS: SIMVASTATIN 40 MG TAB PO SCH (21:01)
[2023-07-29] VITALS (32 sets, daily range): BP systolic 131–188; BP diastolic 50–175; PULSE 84–111; RESP 12–27; TEMP 97.6–99; O2SAT 95–100
[2023-07-29] MEDS: ALBUTEROL SULF 0.083% NEB SOLN 3 ML NEB INH SCH ×4 (01:31→19:37)
[2023-07-29] MEDS ORDERED: FUROSEMIDE INJ 10 MG/ML 2 ML VIAL IV ONE (02:15)
[2023-07-29] MEDS ORDERED: METHYLPREDNISOLONE SOD SUCC 40 MG/ML VIAL 1ML IV ONE (02:30)
[2023-07-29] MEDS ORDERED: DEXTROSE 50% SYRINGE 50 ML IV PRN (02:30)
[2023-07-29] MEDS: DEXMEDETOMIDINE 400MCG/NS100ML 100 ML IV PRN ×3 (03:46→15:50)
[2023-07-29 06:03] LABS: BASOPHILS % 0.1 % (0.0-1.0); HEMATOCRIT 30.2 % (38.2-49.6); HEMOGLOBIN 9.5 g/dL (14.0-18.0); LYMPHOCYTES # (AUTO) 0.3 (1.0-3.2); LYMPHOCYTES % 2.4 % (18.0-39.1); MEAN CORPUSCULAR HEMOGLOBIN 27.5 pg (28-32); MEAN CORPUSCULAR HGB CONC 31.5 g/dL (31-35); MEAN CORPUSCULAR VOLUME 87.5 fL (81-99); MONOCYTES # (AUTO) 0.3 (0.2-0.8); MONOCYTES % 2.8 % (4.4-11.3); NEUTROPHILS # (AUTO) 10.8 (2.1-6.9); NEUTROPHILS % 94.4 % (38.7-80.0); PLATELET COUNT 291 x10e3/uL (140-360); RED BLOOD COUNT 3.45 x10e6/uL (4.3-5.7); RED CELL DISTRIBUTION WIDTH 16.3 % (11.7-14.4); WHITE BLOOD COUNT 11.42 x10e3/uL (4.8-10.8)
[2023-07-29 06:48] LABS: ALBUMIN/GLOBULIN RATIO 0.9 (0.8-2.0); ANION GAP 13.8 mmol/L (8-16); CREATININE, SERUM 0.93 mg/dL (0.72-1.25); POTASSIUM 3.8 mmol/L (3.5-5.1)
[2023-07-29] MEDS: METHYLPREDNISOLONE SOD SUCC 40 MG/ML VIAL 1ML IV SCH ×2 (08:44→20:23)
[2023-07-29] MEDS: INSULIN REGULAR, HUMAN 100 UNIT/1 ML SQ SCH ×4 (08:45→20:24)
[2023-07-29] MEDS: MONTELUKAST SODIUM 10 MG TAB PO SCH (08:45)
[2023-07-29] MEDS: PANTOPRAZOLE SOD 40 MG TABEC PO SCH (08:45)
[2023-07-29] MEDS: DULOXETINE HCL 20 MG DELAYED RELEASE PO SCH (08:45)
[2023-07-29] MEDS ORDERED: CEFEPIME HCL 1 GM VIAL ONE (14:28)
[2023-07-29] MEDS: MUPIROCIN 2% OINT 22 GM TUBE TOP SCH (17:37)
[2023-07-29] MEDS: SIMVASTATIN 40 MG TAB PO SCH (20:23)
[2023-07-30] VITALS (27 sets, daily range): BP systolic 111–164; BP diastolic 55–131; PULSE 73–96; RESP 11–23; TEMP 97.5–98; O2SAT 95–100
[2023-07-30] MEDS: ALBUTEROL SULF 0.083% NEB SOLN 3 ML NEB INH SCH ×4 (02:13→19:07)
[2023-07-30 06:37] LABS: HEMATOCRIT 29.8 % (38.2-49.6); HEMOGLOBIN 9.3 g/dL (14.0-18.0); LYMPHOCYTES # (AUTO) 0.5 (1.0-3.2); LYMPHOCYTES % 6.5 % (18.0-39.1); MEAN CORPUSCULAR HEMOGLOBIN 27.3 pg (28-32); MEAN CORPUSCULAR HGB CONC 31.2 g/dL (31-35); MEAN CORPUSCULAR VOLUME 87.4 fL (81-99); MONOCYTES # (AUTO) 0.4 (0.2-0.8); MONOCYTES % 5.2 % (4.4-11.3); NEUTROPHILS # (AUTO) 7.2 (2.1-6.9); NEUTROPHILS % 88.2 % (38.7-80.0); PLATELET COUNT 268 x10e3/uL (140-360); RED BLOOD COUNT 3.41 x10e6/uL (4.3-5.7); RED CELL DISTRIBUTION WIDTH 16.2 % (11.7-14.4); WHITE BLOOD COUNT 8.11 x10e3/uL (4.8-10.8)
[2023-07-30 07:03] LABS: ALBUMIN 2.9 g/dL (3.5-5.0); ALBUMIN/GLOBULIN RATIO 0.9 (0.8-2.0); ANION GAP 12.9 mmol/L (8-16); CALCIUM 8.9 mg/dL (8.4-10.2); CREATININE, SERUM 0.92 mg/dL (0.72-1.25); POTASSIUM 3.9 mmol/L (3.5-5.1)
[2023-07-30] MEDS: DULOXETINE HCL 20 MG DELAYED RELEASE PO SCH (08:25)
[2023-07-30] MEDS: MONTELUKAST SODIUM 10 MG TAB PO SCH (08:25)
[2023-07-30] MEDS: PANTOPRAZOLE SOD 40 MG TABEC PO SCH (08:25)
[2023-07-30] MEDS: MUPIROCIN 2% OINT 22 GM TUBE TOP SCH (08:26)
[2023-07-30] MEDS: INSULIN REGULAR, HUMAN 100 UNIT/1 ML SQ SCH ×4 (08:32→21:00)
[2023-07-30] MEDS: METHYLPREDNISOLONE SOD SUCC 40 MG/ML VIAL 1ML IV SCH ×2 (08:32→20:54)
[2023-07-30] MEDS: DEXMEDETOMIDINE 400MCG/NS100ML 100 ML IV PRN (14:51)
[2023-07-30] MEDS: SIMVASTATIN 40 MG TAB PO SCH (20:54)
[2023-07-30] MEDS: GUAIFENESIN/CODEINE 5 ML LIQD PO PRN (20:54)
[2023-07-31] VITALS (16 sets, daily range): BP systolic 104–149; BP diastolic 56–67; PULSE 72–88; RESP 16–20; TEMP 97.5–98; O2SAT 97–100
[2023-07-31] MEDS: ALBUTEROL SULF 0.083% NEB SOLN 3 ML NEB INH SCH ×4 (01:10→19:35)
[2023-07-31] MEDS: DEXMEDETOMIDINE 400MCG/NS100ML 100 ML IV PRN ×2 (01:39→17:31)
[2023-07-31 05:54] LABS: HEMOGLOBIN 8.8 g/dL (14.0-18.0); LYMPHOCYTES # (AUTO) 0.7 (1.0-3.2); LYMPHOCYTES % 10.8 % (18.0-39.1); MEAN CORPUSCULAR HEMOGLOBIN 27.5 pg (28-32); MEAN CORPUSCULAR HGB CONC 31.4 g/dL (31-35); MEAN CORPUSCULAR VOLUME 87.5 fL (81-99); MONOCYTES # (AUTO) 0.5 (0.2-0.8); MONOCYTES % 6.9 % (4.4-11.3); NEUTROPHILS # (AUTO) 5.3 (2.1-6.9); PLATELET COUNT 228 x10e3/uL (140-360); RED CELL DISTRIBUTION WIDTH 15.7 % (11.7-14.4); WHITE BLOOD COUNT 6.51 x10e3/uL (4.8-10.8)
[2023-07-31 06:08] LABS: ALBUMIN 2.7 g/dL (3.5-5.0); ALBUMIN/GLOBULIN RATIO 0.9 (0.8-2.0); ANION GAP 11.2 mmol/L (8-16); CALCIUM 8.5 mg/dL (8.4-10.2); CREATININE, SERUM 0.77 mg/dL (0.72-1.25); POTASSIUM 4.2 mmol/L (3.5-5.1)
[2023-07-31] MEDS: METHYLPREDNISOLONE SOD SUCC 40 MG/ML VIAL 1ML IV SCH ×2 (08:45→20:12)
[2023-07-31] MEDS: DULOXETINE HCL 20 MG DELAYED RELEASE PO SCH ×2 (08:45→08:56)
[2023-07-31] MEDS: MONTELUKAST SODIUM 10 MG TAB PO SCH ×2 (08:45→08:56)
[2023-07-31] MEDS: INSULIN REGULAR, HUMAN 100 UNIT/1 ML SQ SCH ×4 (08:46→20:18)
[2023-07-31] MEDS: PANTOPRAZOLE SOD 40 MG TABEC PO SCH ×2 (08:46→08:56)
[2023-07-31] MEDS: MUPIROCIN 2% OINT 22 GM TUBE TOP SCH (08:46)
[2023-07-31] MEDS ORDERED: TEMAZEPAM 7.5 MG CAP PO PRN (10:15)
[2023-07-31] MEDS: GUAIFENESIN/CODEINE 5 ML LIQD PO PRN (12:22)
[2023-07-31] MEDS ORDERED: DEXMEDETOMIDINE 400MCG/NS100ML 100 ML IV ONE (17:25)
[2023-07-31] MEDS: SIMVASTATIN 40 MG TAB PO SCH (20:12)
[2023-08-01] VITALS (16 sets, daily range): BP systolic 118–159; BP diastolic 57–103; PULSE 72–99; RESP 14–24; TEMP 97.6–98.6; O2SAT 97–100
[2023-08-01] MEDS: ALBUTEROL SULF 0.083% NEB SOLN 3 ML NEB INH SCH ×6 (01:25→23:01)
[2023-08-01] MEDS: DEXMEDETOMIDINE 400MCG/NS100ML 100 ML IV PRN (03:16)
[2023-08-01] MEDS ORDERED: TEMAZEPAM 15 MG CAP PO PRN (07:45)
[2023-08-01] MEDS ORDERED: MAGNESIUM HYDROXIDE 30 ML UDC PO ONE (08:00)
[2023-08-01] MEDS: MONTELUKAST SODIUM 10 MG TAB PO SCH (08:35)
[2023-08-01] MEDS: DULOXETINE HCL 20 MG DELAYED RELEASE PO SCH (08:35)
[2023-08-01] MEDS: MUPIROCIN 2% OINT 22 GM TUBE TOP SCH (08:35)
[2023-08-01] MEDS: PANTOPRAZOLE SOD 40 MG TABEC PO SCH (08:35)
[2023-08-01] MEDS: METHYLPREDNISOLONE SOD SUCC 40 MG/ML VIAL 1ML IV SCH ×2 (08:35→21:43)
[2023-08-01] MEDS: INSULIN REGULAR, HUMAN 100 UNIT/1 ML SQ SCH ×4 (08:35→21:00)
[2023-08-01 09:31] LABS: HEMATOCRIT 29.9 % (38.2-49.6); HEMOGLOBIN 9.5 g/dL (14.0-18.0); LYMPHOCYTES # (AUTO) 0.8 (1.0-3.2); MEAN CORPUSCULAR HEMOGLOBIN 27.3 pg (28-32); MEAN CORPUSCULAR HGB CONC 31.8 g/dL (31-35); MEAN CORPUSCULAR VOLUME 85.9 fL (81-99); MONOCYTES # (AUTO) 0.4 (0.2-0.8); MONOCYTES % 5.5 % (4.4-11.3); NEUTROPHILS # (AUTO) 6.8 (2.1-6.9); NEUTROPHILS % 84.3 % (38.7-80.0); PLATELET COUNT 194 x10e3/uL (140-360); RED BLOOD COUNT 3.48 x10e6/uL (4.3-5.7); RED CELL DISTRIBUTION WIDTH 15.4 % (11.7-14.4); WHITE BLOOD COUNT 8.01 x10e3/uL (4.8-10.8)
[2023-08-01 09:55] LABS: ALBUMIN 2.7 g/dL (3.5-5.0); ALBUMIN/GLOBULIN RATIO 0.9 (0.8-2.0); CALCIUM 8.5 mg/dL (8.4-10.2); CREATININE, SERUM 0.77 mg/dL (0.72-1.25); MAGNESIUM 1.7 MG/DL (1.3-2.1)
[2023-08-01] MEDS: SIMVASTATIN 40 MG TAB PO SCH (21:43)
[2023-08-02] VITALS (12 sets, daily range): BP systolic 141–168; BP diastolic 68–79; PULSE 88–98; RESP 18–22; TEMP 97.7–98.6; O2SAT 96–100
[2023-08-02] MEDS: ALBUTEROL SULF 0.083% NEB SOLN 3 ML NEB INH SCH ×3 (03:02→20:03)
[2023-08-02] MEDS ORDERED: ALTEPLASE RECOMBINANT 2 MG/2 ML VIAL IV PRN (06:00)
[2023-08-02] MEDS ORDERED: MAGNESIUM/ALUMINUM/SIMETHICONE 30 ML UDC PO PRN (06:00)
[2023-08-02] MEDS: ALBUTEROL SULF 0.083% NEB SOLN 3 ML NEB NEB PRN ×2 (06:11→10:26)
[2023-08-02 06:15] LABS: HEMATOCRIT 29.9 % (38.2-49.6); HEMOGLOBIN 9.6 g/dL (14.0-18.0); LYMPHOCYTES # (AUTO) 0.6 (1.0-3.2); LYMPHOCYTES % 7.3 % (18.0-39.1); MEAN CORPUSCULAR HEMOGLOBIN 27.3 pg (28-32); MEAN CORPUSCULAR HGB CONC 32.1 g/dL (31-35); MEAN CORPUSCULAR VOLUME 84.9 fL (81-99); MONOCYTES # (AUTO) 0.4 (0.2-0.8); MONOCYTES % 4.5 % (4.4-11.3); NEUTROPHILS # (AUTO) 6.9 (2.1-6.9); NEUTROPHILS % 87.9 % (38.7-80.0); PLATELET COUNT 214 x10e3/uL (140-360); RED BLOOD COUNT 3.52 x10e6/uL (4.3-5.7); RED CELL DISTRIBUTION WIDTH 15.5 % (11.7-14.4)
[2023-08-02 06:48] LABS: ALBUMIN 2.6 g/dL (3.5-5.0); ALBUMIN/GLOBULIN RATIO 0.9 (0.8-2.0); CALCIUM 8.3 mg/dL (8.4-10.2); CREATININE, SERUM 0.73 mg/dL (0.72-1.25)
[2023-08-02] MEDS: DULOXETINE HCL 20 MG DELAYED RELEASE PO SCH (08:54)
[2023-08-02] MEDS: METHYLPREDNISOLONE SOD SUCC 40 MG/ML VIAL 1ML IV SCH (08:54)
[2023-08-02] MEDS: PANTOPRAZOLE SOD 40 MG TABEC PO SCH (08:54)
[2023-08-02] MEDS: MONTELUKAST SODIUM 10 MG TAB PO SCH (08:54)
[2023-08-02] MEDS ORDERED: FLUCONAZOLE 100 MG TAB PO SCH (09:00)
[2023-08-02] MEDS: MUPIROCIN 2% OINT 22 GM TUBE TOP SCH (09:00)
[2023-08-02] MEDS: INSULIN REGULAR, HUMAN 100 UNIT/1 ML SQ SCH ×4 (09:01→16:26)
[2023-08-02] MEDS: GUAIFENESIN/CODEINE 5 ML LIQD PO PRN (14:15)
== END 2023-08-02 20:32 | DRG 871 ==
LOC: ER 14:59 → ERHOLD 16:03 → ICU 16:58 → MED/SURG 08-01 12:40
PROVIDERS: ADMIT Internal Medicine; ATTEND Internal Medicine
PROC: 5A09357 Assistance with Respiratory Ventilation, Less than 24 Consecutive Hours, Continuous Positive Airway Pressure (ICD-10-PCS; 2023-07-27)
PROC: 02HV33Z Insertion of Infusion Device into Superior Vena Cava, Percutaneous Approach (ICD-10-PCS; principal; 2023-07-29)
DX: A41.9 Sepsis, unspecified organism (principal); J18.9 Pneumonia, unspecified organism; J96.21 Acute and chronic respiratory failure with hypoxia; J44.1 Chronic obstructive pulmonary disease with (acute) exacerbation; I50.32 Chronic diastolic (congestive) heart failure; E11.9 Type 2 diabetes mellitus without complications; R00.0 Tachycardia, unspecified; I25.10 Atherosclerotic heart disease of native coronary artery without angina pectoris; G47.33 Obstructive sleep apnea (adult) (pediatric); J43.9 Emphysema, unspecified; D64.9 Anemia, unspecified; E78.5 Hyperlipidemia, unspecified; K21.9 Gastro-esophageal reflux disease without esophagitis; K29.70 Gastritis, unspecified, without bleeding; F41.9 Anxiety disorder, unspecified; I11.0 Hypertensive heart disease with heart failure; Z11.52 Encounter for screening for COVID-19; Z88.0 Allergy status to penicillin; Z79.899 Other long term (current) drug therapy; Z79.82 Long term (current) use of aspirin; Z79.4 Long term (current) use of insulin; Z79.84 Long term (current) use of oral hypoglycemic drugs; Z99.81 Dependence on supplemental oxygen; Z95.5 Presence of coronary angioplasty implant and graft; Z87.891 Personal history of nicotine dependence; Z96.649 Presence of unspecified artificial hip joint
CPT/HCPCS: 36415; 36569; 36600; 71045; 80053; 81001; 82550; 82805; 82948; 83605; 83735; 83880; 84484; 85025; 85610; 85730; 87040; 87086; 87400; 93005; 94640; 94660; 94760; 94799; 96372; 99252; 99284; J0692; J1940; J2920; J2930; J7030; J7050; U0002